=== PATIENT | female | born 1930 | race Caucasian/White ===

== ENCOUNTER 2018-02-05 08:28 | Inpatient (IN) ==
--- NOTE | 2018-02-05 08:38 | Emergency Department Note ---
Disposition Clinical Impression: Congestive heart failure Disposition: Admitted As Inpatient Condition: Good Referrals: Dilia Montoya MD [Primary Care Provider] - Forms: ED Satisfaction Letter Time of Disposition: 10:50 General Adult HPI - General Chief complaint: ED Shortness of Breath/Dyspnea Stated complaint: Sent from [facility]/back pain & dyspnea Time Seen by Provider: 02/05/18 08:33 Source: patient, family Mode of arrival: ambulatory Limitations: no limitations Nursing Notes Reviewed: Yes Vital Signs Reviewed: Yes - History of Present Illness HPI Narrative: Patient presents to the ED with the chief complaint of abdominal distention and back pain. Patient reportedly was sent over from Dr. Smith's office. She was seen in the ER here a few weeks ago and was told she had pleurisy and on a repeat visit. She had a CTA of her chest that showed a age indeterminate T10 fracture. Family states that since then she has been having epigastric pain and discomfort and bloating. States that her right periscapular area is very tender. - Related Data Home Medications Medication Instructions Recorded Confirmed Albuterol Sulfate [Proair Hfa] 2 puff IH Q4H 10/20/16 02/05/18 Atenolol [Tenormin] 25 mg PO DAILY 10/20/16 02/05/18 Cyanocobalamin (B-12) [Vitamin B12] 1,000 mcg IM QMONTH 10/20/16 02/05/18 Diltiazem HCl [Tiazac] 120 mg PO DAILY 10/20/16 02/05/18 Fluticasone/Salmeterol [Advair 1 puff IH Q12H 10/20/16 02/05/18 500-50 Diskus] HYDROcodone/Acet 5/325 mg [[place] 1 tab PO BID PRN 10/20/16 02/05/18 5-325 mg] Ipratropium [ATROVENT Inhaler] 2 puff IH QID 10/20/16 02/05/18 Levothyroxine [Synthroid] 125 mcg PO DAILY 10/20/16 02/05/18 Losartan/Hydrochlorothiazide 1 each PO DAILY 10/20/16 02/05/18 [Hyzaar 100-25 Tablet] predniSONE [PredniSONE] 5 mg PO DAILY 02/05/18 02/05/18 Allergies Allergy/AdvReac Type Severity Reaction Status Date / Time codeine Allergy Hives Verified 12/29/17 11:24 Review of Systems: As reviewed in the HPI. All other systems reviewed are negative or normal. Past Medical History - Past Medical History Medical history: Reports: asthma, hypertension, thyroid disease, other Surgical history: Reports: thyroidectomy Psychiatric history: Reports: no psych history LAP HAND TOOL history: Reports: no LAP HAND TOOL history - Social History Smoking Status: Never smoker Smokeless Tobacco Status: No Alcohol use: Reports: none Drug use: Reports: none Physical Exam - General Limitations: no limitations General appearance: alert, in no apparent distress - Head Head exam: atraumatic, normocephalic, normal inspection - Eye Eye exam: Present: normal appearance, PERRL, EOMI - ENT ENT exam: normal exam, normal oropharynx, mucous membranes moist - Chest Chest inspection: Present: normal inspection, symmetric chest wall rise - Respiratory Respiratory exam: Present: other (decreased breath sounds, ). Absent: normal lung sounds bilaterally - Cardiovascular Cardiovascular exam: Present: regular rate, normal rhythm, normal heart sounds - Abdominal Exam Abdominal exam: Present: soft, Non-Tender. Absent: tenderness, distention, guarding, rebound, rigidity - Extremities Exam Extremities exam: Present: normal inspection, full ROM. Absent: tenderness, pedal edema - Back Exam Back exam: Present: tenderness (mid thoracic, b/l radiating pain to abdomen). Absent: full ROM - Neurological Exam Neurological exam: Present: alert, oriented X3 - Psychiatric Psychiatric exam: Present: normal affect, normal mood - Skin Skin exam: Present: warm, dry, intact, normal color Course Course Narrative: Patient presenting with pleuritic chest pain for the last 2 months. Has had a CTA previously that was negative for PE. Also, incidentally found was at T10 superior endplate compression fracture which she saw spine surgery today but was having orthopnea and dyspnea that has been worsening and not improving. We will check labs, chest x-ray. Chest x-ray shows pulmonary vascular congestion and pleural effusions. We will add on a BNP and hepatic panel. BNP was only 150, although not acutely diagnostic for CHF. This combined with her dyspnea and chest x-ray findings to make us think this is more likely. We will admit the patient to hospitalist service for an echo and further workup. Of note, her pain was very well controlled with boluses of lidocaine patches, which could be from her thoracic fracture. - Consultations Consultation #1: Admitted to the hospitalist service under Dr. Sánchez. Agreeable that the patient does not sound infectious and would not antibiotics. We will give her some nitro paste help with her blood pressure and possible CHF. Be admitted for echo and further workup of this thoracic spine fracture. Time: 10:44 Vital Signs Temperature 97.7 F 02/05/18 08:31 Pulse Rate 68 02/05/18 08:31 Respiratory Rate 22 02/05/18 08:31 Blood Pressure 202/119 02/05/18 08:31 O2 Sat by Pulse Oximetry 96 02/05/18 08:31 Temperature 97.7 F 02/05/18 08:31 Pulse Rate 81 02/05/18 09:20 Respiratory Rate 20 02/05/18 09:20 Blood Pressure 183/111 02/05/18 09:20 O2 Sat by Pulse Oximetry 96 02/05/18 09:20 Oxygen Delivery Oxygen Delivery Room Air Medical Decision Making - Medical Records Medical records reviewed: Yes I reviewed the patient's medical records. - Lab Data Lab results reviewed: Yes I reviewed the patient's lab results. Result diagrams: 02/05/18 08:58 02/05/18 08:58 Lab Results 02/05/18 02/05/18 02/05/18 Range/Units 08:44 08:58 08:58 WBC 12.8 H (4.3-11.1) K/mcL RBC 4.05 (3.82-4.97) M/mcL Hgb 13.4 (11.5-15.4) g/dL Hct 39.8 (35.3-44.9) % MCV 98.3 (83.0-100.0) fL MCH 33.1 (28.0-33.3) pg MCHC 33.7 (31.6-35.5) g/dL RDW 13.0 (11.5-14.5) % Plt Count 392 (140-400) K/mcL MPV 9.2 L (9.4-12.4) fL Immature Gran % 2.7 (0-4) % Seg Neutrophils % 80.9 % Lymphocytes % 12.4 % Monocytes % 3.5 % Eosinophils % 0.0 % Basophils % 0.5 % Neutrophils # 10.4 H (1.6-8.9) K/mcL Lymphocytes # 1.6 (0.6-4.6) K/mcL Monocytes # 0.5 (0.0-1.3) K/mcL Eosinophils # 0.0 (0.0-0.6) K/mcL Basophils # 0.1 (0.0-0.2) K/mcL Immature Plt Fraction 2.0 (1.1-6.1) % Sodium 134 L (136-145) mEq/L Potassium 3.8 (3.5-5.1) mEq/L Chloride 98 (98-107) mEq/L Carbon Dioxide 27 (23-29) mEq/L BUN 25 H (8-23) mg/dL Creatinine 0.68 (0.60-1.20) mg/dL Est GFR ( Amer) > 60 (> 60) Est GFR (Non-Af Amer) > 60 (> 60) BUN/Creatinine Ratio 37 H (6-26) Glucose 210 H (70-105) mg/dL Calculated Osmolality 289 (280-300) Calcium 9.3 (8.6-10.3) mg/dL Total Bilirubin 0.6 (0.3-1.0) mg/dL Direct Bilirubin 0.2 (0.0-0.2) mg/dL Indirect Bilirubin 0.4 (0.0-1.2) mg/dL AST 23 (13-39) Units/L ALT 21 (7-52) Units/L Alkaline Phosphatase 60 (34-104) Units/L Troponin I < 0.03 (< 0.04) ng/mL B-Natriuretic Peptide (Less than 100) pg/mL Serum Total Protein 7.6 (6.4-8.9) g/dL Albumin 4.0 (3.5-5.7) g/dL Globulin 3.6 H (2.4-3.5) g/dL Albumin/Globulin Ratio 1.1 (1.1-2.2) Lipase 28 (11-82) Units/L Urine Color Yellow (Yellow) Urine Clarity Clear (Clear) Urine pH 7.0 (5.0-8.0) pH Units Ur Specific [place] 1.020 (1.010-1.025) Urine Protein Negative (Neg-Trace) mg/dL Urine Glucose (UA) 100 H (Normal) mg/dL Urine Ketones Negative (Negative) mg/dL Urine Blood Negative (Negative) Urine Nitrite Negative (Negative) Urine Bilirubin Negative (Negative) Urine Urobilinogen Normal (Normal) mg/dL Ur Leukocyte Esterase Large H (Negative) Urine Microscopic RBC 0-3 (0-3) per hpf Urine Microscopic WBC 5-15 H (0-3) per hpf Ur Squamous Epith Cells Many H (None-Few) per lpf Urine Bacteria None Seen (None-Few) per hpf Hyaline Casts None Seen (None-Few) per lpf Ur Culture Indicated? NO. A (NO) 02/05/18 Range/Units 08:58 WBC (4.3-11.1) K/mcL RBC (3.82-4.97) M/mcL Hgb (11.5-15.4) g/dL Hct (35.3-44.9) % MCV (83.0-100.0) fL MCH (28.0-33.3) pg MCHC (31.6-35.5) g/dL RDW (11.5-14.5) % Plt Count (140-400) K/mcL MPV (9.4-12.4) fL Immature Gran % (0-4) % Seg Neutrophils % % Lymphocytes % % Monocytes % % Eosinophils % % Basophils % % Neutrophils # (1.6-8.9) K/mcL Lymphocytes # (0.6-4.6) K/mcL Monocytes # (0.0-1.3) K/mcL Eosinophils # (0.0-0.6) K/mcL Basophils # (0.0-0.2) K/mcL Immature Plt Fraction (1.1-6.1) % Sodium (136-145) mEq/L Potassium (3.5-5.1) mEq/L Chloride (98-107) mEq/L Carbon Dioxide (23-29) mEq/L BUN (8-23) mg/dL Creatinine (0.60-1.20) mg/dL Est GFR ( Amer) (> 60) Est GFR (Non-Af Amer) (> 60) BUN/Creatinine Ratio (6-26) Glucose (70-105) mg/dL Calculated Osmolality (280-300) Calcium (8.6-10.3) mg/dL Total Bilirubin (0.3-1.0) mg/dL Direct Bilirubin (0.0-0.2) mg/dL Indirect Bilirubin (0.0-1.2) mg/dL AST (13-39) Units/L ALT (7-52) Units/L Alkaline Phosphatase (34-104) Units/L Troponin I (< 0.04) ng/mL B-Natriuretic Peptide 149 H (Less than 100) pg/mL Serum Total Protein (6.4-8.9) g/dL Albumin (3.5-5.7) g/dL Globulin (2.4-3.5) g/dL Albumin/Globulin Ratio (1.1-2.2) Lipase (11-82) Units/L Urine Color (Yellow) Urine Clarity (Clear) Urine pH (5.0-8.0) pH Units Ur Specific [place] (1.010-1.025) Urine Protein (Neg-Trace) mg/dL Urine Glucose (UA) (Normal) mg/dL Urine Ketones (Negative) mg/dL Urine Blood (Negative) Urine Nitrite (Negative) Urine Bilirubin (Negative) Urine Urobilinogen (Normal) mg/dL Ur Leukocyte Esterase (Negative) Urine Microscopic RBC (0-3) per hpf Urine Microscopic WBC (0-3) per hpf Ur Squamous Epith Cells (None-Few) per lpf Urine Bacteria (None-Few) per hpf Hyaline Casts (None-Few) per lpf Ur Culture Indicated? (NO) - Radiology Data Radiology results reviewed: Yes I reviewed the patient's radiology results. - EKG Data EKG #1 EKG attestation: Yes I reviewed and interpreted this EKG. EKG results narrative: Sinus rhythm, rate 74, KS interval 186, QRS 143, QTc 444, LEFT axis deviation, left bundle-branch block that is unchanged from previous
--- NOTE | 2018-02-05 08:52 | Emergency Department Note ---
Disposition Clinical Impression: Congestive heart failure Disposition: Admitted As Inpatient Condition: Good General Adult HPI - General Chief complaint: ED Shortness of Breath/Dyspnea Stated complaint: Sent from [facility]/back pain & dyspnea Time Seen by Provider: 02/05/18 08:33 Source: patient, family Mode of arrival: ambulatory Limitations: no limitations Nursing Notes Reviewed: Yes Vital Signs Reviewed: Yes - History of Present Illness Pain Scale: 4 - Related Data Home Medications Medication Instructions Recorded Confirmed Albuterol Sulfate [Proair Hfa] 2 puff IH Q4H 10/20/16 02/05/18 Atenolol [Tenormin] 25 mg PO DAILY 10/20/16 02/05/18 Cyanocobalamin (B-12) [Vitamin B12] 1,000 mcg IM QMONTH 10/20/16 02/05/18 Diltiazem HCl [Tiazac] 120 mg PO DAILY 10/20/16 02/05/18 Fluticasone/Salmeterol [Advair 1 puff IH Q12H 10/20/16 02/05/18 500-50 Diskus] HYDROcodone/Acet 5/325 mg [[place] 1 tab PO BID PRN 10/20/16 02/05/18 5-325 mg] Ipratropium [ATROVENT Inhaler] 2 puff IH QID 10/20/16 02/05/18 Levothyroxine [Synthroid] 125 mcg PO DAILY 10/20/16 02/05/18 Losartan/Hydrochlorothiazide 1 each PO DAILY 10/20/16 02/05/18 [Hyzaar 100-25 Tablet] predniSONE [PredniSONE] 5 mg PO DAILY 02/05/18 02/05/18 Allergies Allergy/AdvReac Type Severity Reaction Status Date / Time codeine Allergy Hives Verified 12/29/17 11:24 Past Medical History - Past Medical History Medical history: Reports: asthma, hypertension, thyroid disease, other Surgical history: Reports: thyroidectomy Psychiatric history: Reports: no psych history SKIN CARVER history: Reports: no SKIN CARVER history - Social History Smoking Status: Never smoker Smokeless Tobacco Status: No Alcohol use: Reports: none Drug use: Reports: none Physical Exam - General Limitations: no limitations General appearance: alert, in no apparent distress Course Vital Signs Temperature 97.7 F 02/05/18 08:31 Pulse Rate 68 02/05/18 08:31 Respiratory Rate 22 02/05/18 08:31 Blood Pressure 202/119 02/05/18 08:31 O2 Sat by Pulse Oximetry 96 02/05/18 08:31 Temperature 97.7 F 02/05/18 08:31 Pulse Rate 77 02/05/18 11:17 Respiratory Rate 16 02/05/18 11:17 Blood Pressure 160/88 02/05/18 11:17 O2 Sat by Pulse Oximetry 98 02/05/18 11:17 Oxygen Delivery Oxygen Delivery Room Air Medical Decision Making - MDM Narrative Medical decision making narrative: This documentation is done with the assistance of Dragon dictation. Despite efforts made to ensure accuracy, there may be inaccuracies in medical transcription supervisor or spelling and typographical errors. Patient presents from orthopedics office due to T10 compression fracture. That was found during her last ER visit. She is having some swelling in her abdomen and some pain. Were in and do a cardiac workup on her and a reevaluation. She is not have any dyspnea at this time. Daughter states she is pretty healthy and does not come to the hospital very often. Patient's agreement with our plan. Chest X-Ray 02/05/18 08:52 IMPRESSION: 1. Pulmonary vascular congestion and mild cardiomegaly. 2. Questionable bilateral effusions. 3. Bibasilar airspace opacities potentially representing atelectasis, pneumonia, or aspiration. D/ / Marin Vides MD / Marin Vides MD Interpreting Provider: Marin Vides MD 1000 hrs.: Patient started on medication herefor CHF, bring her into the hospital for CHF. Spoke with hospitalist in agreement with plan. Patient's feeling better and is agreement with this admission. Chest X-Ray 02/05/18 08:52 IMPRESSION: 1. Pulmonary vascular congestion and mild cardiomegaly. 2. Questionable bilateral effusions. 3. Bibasilar airspace opacities potentially representing atelectasis, pneumonia, or aspiration. D/ / Marin Vides MD / Marin Vides MD Interpreting Provider: Marin Vides MD - Lab Data Result diagrams: 02/05/18 08:58 02/05/18 08:58 Lab Results 02/05/18 02/05/18 02/05/18 Range/Units 08:44 08:58 08:58 WBC 12.8 H (4.3-11.1) K/mcL RBC 4.05 (3.82-4.97) M/mcL Hgb 13.4 (11.5-15.4) g/dL Hct 39.8 (35.3-44.9) % MCV 98.3 (83.0-100.0) fL MCH 33.1 (28.0-33.3) pg MCHC 33.7 (31.6-35.5) g/dL RDW 13.0 (11.5-14.5) % Plt Count 392 (140-400) K/mcL MPV 9.2 L (9.4-12.4) fL Immature Gran % 2.7 (0-4) % Seg Neutrophils % 80.9 % Lymphocytes % 12.4 % Monocytes % 3.5 % Eosinophils % 0.0 % Basophils % 0.5 % Neutrophils # 10.4 H (1.6-8.9) K/mcL Lymphocytes # 1.6 (0.6-4.6) K/mcL Monocytes # 0.5 (0.0-1.3) K/mcL Eosinophils # 0.0 (0.0-0.6) K/mcL Basophils # 0.1 (0.0-0.2) K/mcL Immature Plt Fraction 2.0 (1.1-6.1) % Sodium 134 L (136-145) mEq/L Potassium 3.8 (3.5-5.1) mEq/L Chloride 98 (98-107) mEq/L Carbon Dioxide 27 (23-29) mEq/L BUN 25 H (8-23) mg/dL Creatinine 0.68 (0.60-1.20) mg/dL Est GFR ( Amer) > 60 (> 60) Est GFR (Non-Af Amer) > 60 (> 60) BUN/Creatinine Ratio 37 H (6-26) Glucose 210 H (70-105) mg/dL Calculated Osmolality 289 (280-300) Calcium 9.3 (8.6-10.3) mg/dL Total Bilirubin 0.6 (0.3-1.0) mg/dL Direct Bilirubin 0.2 (0.0-0.2) mg/dL Indirect Bilirubin 0.4 (0.0-1.2) mg/dL AST 23 (13-39) Units/L ALT 21 (7-52) Units/L Alkaline Phosphatase 60 (34-104) Units/L Troponin I < 0.03 (< 0.04) ng/mL B-Natriuretic Peptide (Less than 100) pg/mL Serum Total Protein 7.6 (6.4-8.9) g/dL Albumin 4.0 (3.5-5.7) g/dL Globulin 3.6 H (2.4-3.5) g/dL Albumin/Globulin Ratio 1.1 (1.1-2.2) Lipase 28 (11-82) Units/L Urine Color Yellow (Yellow) Urine Clarity Clear (Clear) Urine pH 7.0 (5.0-8.0) pH Units Ur Specific [place] 1.020 (1.010-1.025) Urine Protein Negative (Neg-Trace) mg/dL Urine Glucose (UA) 100 H (Normal) mg/dL Urine Ketones Negative (Negative) mg/dL Urine Blood Negative (Negative) Urine Nitrite Negative (Negative) Urine Bilirubin Negative (Negative) Urine Urobilinogen Normal (Normal) mg/dL Ur Leukocyte Esterase Large H (Negative) Urine Microscopic RBC 0-3 (0-3) per hpf Urine Microscopic WBC 5-15 H (0-3) per hpf Ur Squamous Epith Cells Many H (None-Few) per lpf Urine Bacteria None Seen (None-Few) per hpf Hyaline Casts None Seen (None-Few) per lpf Ur Culture Indicated? NO. A (NO) 02/05/18 Range/Units 08:58 WBC (4.3-11.1) K/mcL RBC (3.82-4.97) M/mcL Hgb (11.5-15.4) g/dL Hct (35.3-44.9) % MCV (83.0-100.0) fL MCH (28.0-33.3) pg MCHC (31.6-35.5) g/dL RDW (11.5-14.5) % Plt Count (140-400) K/mcL MPV (9.4-12.4) fL Immature Gran % (0-4) % Seg Neutrophils % % Lymphocytes % % Monocytes % % Eosinophils % % Basophils % % Neutrophils # (1.6-8.9) K/mcL Lymphocytes # (0.6-4.6) K/mcL Monocytes # (0.0-1.3) K/mcL Eosinophils # (0.0-0.6) K/mcL Basophils # (0.0-0.2) K/mcL Immature Plt Fraction (1.1-6.1) % Sodium (136-145) mEq/L Potassium (3.5-5.1) mEq/L Chloride (98-107) mEq/L Carbon Dioxide (23-29) mEq/L BUN (8-23) mg/dL Creatinine (0.60-1.20) mg/dL Est GFR ( Amer) (> 60) Est GFR (Non-Af Amer) (> 60) BUN/Creatinine Ratio (6-26) Glucose (70-105) mg/dL Calculated Osmolality (280-300) Calcium (8.6-10.3) mg/dL Total Bilirubin (0.3-1.0) mg/dL Direct Bilirubin (0.0-0.2) mg/dL Indirect Bilirubin (0.0-1.2) mg/dL AST (13-39) Units/L ALT (7-52) Units/L Alkaline Phosphatase (34-104) Units/L Troponin I (< 0.04) ng/mL B-Natriuretic Peptide 149 H (Less than 100) pg/mL Serum Total Protein (6.4-8.9) g/dL Albumin (3.5-5.7) g/dL Globulin (2.4-3.5) g/dL Albumin/Globulin Ratio (1.1-2.2) Lipase (11-82) Units/L Urine Color (Yellow) Urine Clarity (Clear) Urine pH (5.0-8.0) pH Units Ur Specific [place] (1.010-1.025) Urine Protein (Neg-Trace) mg/dL Urine Glucose (UA) (Normal) mg/dL Urine Ketones (Negative) mg/dL Urine Blood (Negative) Urine Nitrite (Negative) Urine Bilirubin (Negative) Urine Urobilinogen (Normal) mg/dL Ur Leukocyte Esterase (Negative) Urine Microscopic RBC (0-3) per hpf Urine Microscopic WBC (0-3) per hpf Ur Squamous Epith Cells (None-Few) per lpf Urine Bacteria (None-Few) per hpf Hyaline Casts (None-Few) per lpf Ur Culture Indicated? (NO) Attestation Statement - Attestation Attestation: I examined this patient and my medical decision-making was reviewed with the Resident Physician. I agree with the documented findings, disposition and treatment plan as described except to the extent set forth below. Patient seen on arrival with Dr. Delgado and myself, I agree with his evaluation and management plan, supervise care the patient's stay.
[2018-02-05 09:07] LABS: Bilirubin,Urine Negative (Negative); Blood,Urine Negative (Negative); Color,Urine Yellow (Yellow); Glucose,Urine (UA) 100 mg/dL (Normal); Ketones,Urine Negative (Negative); Leukocyte Esterase,Urine Large (Negative); Nitrite,Urine Negative (Negative); Protein,Urine Negative (Neg-Trace); Urobilinogen,Urine Normal (Normal)
[2018-02-05 09:09] LABS: Bacteria,Urine None Seen per hpf (None-Few); Hyaline Casts,Urine None Seen per lpf (None-Few); Squamous Epithelial Cell,Urine Many per lpf (None-Few)
[2018-02-05 09:10] LABS: Clarity,Urine Clear (Clear)
[2018-02-05 09:14] LABS: Basophils # 0.1 K/mcL (0.0-0.2); Basophils % 0.5 %; Hematocrit 39.8 % (35.3-44.9); Immature Granulocytes % 2.7 % (0-4); Lymphocytes # 1.6 K/mcL (0.6-4.6); Lymphocytes % 12.4 %; Mean Corpuscular HGB Conc 33.7 g/dL (31.6-35.5); Mean Corpuscular Hemoglobin 33.1 pg (28.0-33.3); Mean Platelet Volume 9.2 fL (9.4-12.4); Monocytes # 0.5 K/mcL (0.0-1.3); Monocytes % 3.5 %; Neutrophils # 10.4 K/mcL (1.6-8.9); Platelet Count 392 K/mcL (140-400); Red Blood Count 4.05 M/mcL (3.82-4.97); Segmented Neutrophils % 80.9 %
[2018-02-05 09:17] LABS: Hemoglobin 13.4 g/dL (11.5-15.4); Mean Corpuscular Volume 98.3 fL (83.0-100.0)
[2018-02-05 09:20] LABS: RBC,Urine 0-3 per hpf (0-3)
[2018-02-05 09:32] LABS: Troponin I < 0.03 ng/mL (< 0.04)
[2018-02-05 09:33] LABS: BUN/Creatinine Ratio 37 (6-26); Blood Urea Nitrogen 25 mg/dL (8-23); Calcium 9.3 mg/dL (8.6-10.3); Carbon Dioxide 27 mEq/L (23-29); Chloride 98 mEq/L (98-107); Glucose 210 mg/dL (70-105); Osmolality,Calculated 289 (280-300); Potassium 3.8 mEq/L (3.5-5.1); Sodium 134 mEq/L (136-145); eGFR For African Americans > 60 (> 60); eGFR For Non-African Americans > 60 (> 60)
[2018-02-05 10:02] LABS: Alanine Aminotransferase 21 Units/L (7-52); Albumin/Globulin Ratio 1.1 (1.1-2.2); Alkaline Phosphatase 60 Units/L (34-104); Aspartate Amino Transferase 23 Units/L (13-39); Bilirubin,Direct 0.2 mg/dL (0.0-0.2); Bilirubin,Indirect 0.4 mg/dL (0.0-1.2); Bilirubin,Total 0.6 mg/dL (0.3-1.0); Globulin 3.6 g/dL (2.4-3.5); Lipase 28 Units/L (11-82); Total Protein 7.6 g/dL (6.4-8.9)
[2018-02-05] MEDS ORDERED: Nitroglycerin 1 INCH/GM PACKET TP ONE (10:43)
[2018-02-05] MEDS ORDERED: Naloxone 0.4 MG/ML INJ IVP PRN (12:18)
--- NOTE | 2018-02-05 12:18 | Internal Med History&Physical ---
Date of Encounter: 02/05/18 Time of Encounter: 12:18 Internal Medicine - H&P: HPI Admitted From: Home Plans for Post Hospital Care: Home History of present illness: Ms. Church is a 87 year old female with history of hypertension, polymyalgia rheumatica, TIA questionable DVT, recently diagnosed T10 fracture 3 weeks ago on x-ray was sent over from Dr. Smith's office with a complaint of shortness of breath raise blood pressure. Patient went to Dr. Smith office today for the evaluation of a spine fracture but was found to be in severe pain that was causing short of breath and high blood pressure was found therefore sent to emergency room. Patient has middle back pain rating 10 x 10 worse on bending and lying down but no relieving factor for last 2 weeks and residual ER where CT chest done with finding of T10 fracture therefore send patient back to home with a follow-up PCP in a spine surgeon and therefore she supposed to see a spine surgeon today. She has been taking hydrocodone on 5 mg but not much help. She thinks her shortness of breath is because of ongoing middle back pain that radiates to the upper abdomen bilateral causing bandlike presentation otherwise denies chest pain, nausea, vomiting, fever, diarrhea, constipation. Patient noticed some urine frequency change and chills. Patient denies urinary or bowel incontinence, lower extremity weakness but has chronic tingling and numbness and neuropathic pain. She was seen in the ER here a few weeks ago and was told she had pleurisy and on a repeat visit. She had a CTA of her chest that showed a age indeterminate T10 fracture. Past Med Surg Social Fam HX - Past Medical History Medical history: asthma, hypertension, thyroid disease, other Psychiatric history: no psych history - Past Surgical History Surgical History: thyroidectomy - Social History Smoking Status: Never smoker Smokeless Tobacco Status: No Alcohol use: none Drug use: none Internal Medicine - H&P: Meds Albuterol Sulfate [Proair Hfa] 2 puff IH Q4H 10/20/16 [History] Atenolol [Tenormin] 25 mg PO DAILY 10/20/16 [History] Cyanocobalamin (B-12) [Vitamin B12] 1,000 mcg IM QMONTH 10/20/16 [History] Diltiazem HCl [Tiazac] 120 mg PO DAILY 10/20/16 [History] Fluticasone/Salmeterol [Advair 500-50 Diskus] 1 puff IH Q12H 10/20/16 [History] HYDROcodone/Acet 5/325 mg [[place] 5-325 mg] 1 tab PO BID PRN 10/20/16 [History] Ipratropium [ATROVENT Inhaler] 2 puff IH QID 10/20/16 [History] Levothyroxine [Synthroid] 125 mcg PO DAILY 10/20/16 [History] Losartan/Hydrochlorothiazide [Hyzaar 100-25 Tablet] 1 each PO DAILY 10/20/16 [ History] predniSONE [PredniSONE] 5 mg PO DAILY 02/05/18 [History] 3 Allergy/AdvReac Type Severity Reaction Status Date / Time codeine Allergy Hives Verified 12/29/17 11:24 All Systems PM: A 10-system review of systems was performed and is negative for pertinent findings except as documented above in the HPI. - Constitutional Vitals: Temp Pulse Resp BP Pulse Ox 97.7 F 77 18 177/84 98 02/05/18 08:31 02/05/18 11:17 02/05/18 12:11 02/05/18 12:11 02/05/18 11:17 Exam: General appearance: Moderate distress due to pain, A&O X 3. Daughter at bedside. No respiratory distress Head exam: Atraumatic Eye exam: EOMI, PERRLA ENT exam: Moist oral mucosa Neck nontender, supple Respiratory exam: Clear to auscultation bilaterally Cardiovascular exam: Regular rate and rhythm, no systolic murmur Abdominal exam: Soft, bilateral upper abdominal tenderness in bandlike fashion that originate from T10-T12 area. nondistended, positive bowel sounds Spine-limited range of motion due to severe pain. Tender T10-T12. Extremities exam: No calf tenderness, no pedal edema Present: Skin-no rash, warm, dry, intact Neurological exam: Alert, awake, oriented 3, CN II-XII intact, no focal deficits. No facial droop. Normal speech. Normal gait. Romberg sign negative Internal Med - H&P Results - Labs CBC & Chem 7: 02/05/18 08:58 02/05/18 08:58 - Assessment and plan (1) Back pain of thoracolumbar region Current Visit: Yes Status: Acute Assessment and plan: Acute on chronic. No history of fall. CT thorax with T10 fracture. No associated neurological finding. Pain management with hydrocodone 10 mg every 6 hour when necessary, lidocaine patch. Decadron 10 mg loading dose with 4 mg every 8 hours to relieve inflammatory process and patient also has been on chronic steroid due to polymyalgia rheumatica. Therefore she has [place] shoulder pain. MRI thoracic lumbar spine without contrast ordered. Will consult Dr. Smith. Fall precaution. (2) Shortness of breath Current Visit: Yes Status: Acute Assessment and plan: Most related with severe pain. Slight raise in BNP and also chest x-ray venous congestion, questionable bilateral pleural effusion mild, questionable atelectasis. Lasix 20 mg IV 1, a strict I&O's, spirometry started. On not convinced about infiltrate but will keep on monitoring. D-dimer order. Continue DuoNeb his home dose. Chest clearand of COPD exacerbation. Oxygen when necessary. (3) Leukocytosis, unspecified Current Visit: Yes Status: Acute Assessment and plan: Slight urinary symptom with abnormal urinalysis. Urine culture ordered. Patient does not want appearance upset therefore no blood culture ordered. Empiric Rocephin treatment is started while waiting for urine culture report. Qualifiers: Leukocytosis type: unspecified Qualified Code(s): D72.829 - Elevated white blood cell count, unspecified (4) Hyperglycemia Current Visit: Yes Status: Acute Assessment and plan: No history of diabetes mellitus but patient has been on chronic steroid and also in a stress. Accu-Chek, sliding scale insulin, hemoglobin A1c., Diabetic diet. (5) DVT prophylaxis Current Visit: Yes Status: Acute Assessment and plan: SCDs, Lovenox. - Time Spent With Patient Total time spent is greater than 50% in coordination of care (as documented) at patient's floor/unit and/or counseling patient:
[2018-02-05] MEDS ORDERED: *HR* Dextrose 50 % in Water (Syg) 50 ML SYRINGE IVP PRN (12:24)
[2018-02-05] MEDS ORDERED: Dextrose Gel 15 GM/37.5 ML TUBE PO PRN ×2 (12:24)
[2018-02-05] MEDS ORDERED: D5% in Water 1,000 ML IVC PRN (12:24)
[2018-02-05] MEDS ORDERED: Dexamethasone 4 MG/ML VIAL IVP ONE (12:50)
[2018-02-05] MEDS ORDERED: Furosemide 20 MG/2 ML VIAL IVP ONE (13:02)
[2018-02-05] MEDS: *HR* HYDROcodone/Acet 10/325 mg TABLET PO PRN ×2 (13:27→21:25)
[2018-02-05 14:10] LABS: Estimated Average Glucose 163 mg/dl; Hemoglobin A1C 7.3 %
[2018-02-05] MEDS: Dexamethasone 4 MG/ML VIAL IVP SCH ×2 (14:38→21:26)
[2018-02-05] MEDS: Budesonide/Formoterol 160/4.5 MDI IH SCH ×2 (15:49→20:15)
[2018-02-05] MEDS: Ipratropium 1 PUFF INHALER IH SCH ×3 (15:55→20:15)
[2018-02-05] MEDS: Ibuprofen 800 MG TABLET PO PRN (16:12)
[2018-02-05] MEDS ORDERED: *HR* FentaNYL (PF) 100 MCG/2 ML VIAL IVP ONE (16:24)
--- NOTE | 2018-02-05 17:11 | Electrocardiograph Report ---
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
[2018-02-05] MEDS ORDERED: Insulin LISPRO 300 UNITS/3 ML VIAL SQ SCH (18:00)
[2018-02-05] MEDS: Insulin LISPRO 300 UNITS/3 ML VIAL SQ SCH ×2 (18:40→21:26)
[2018-02-05] MEDS: Gabapentin 100 MG CAPSULE PO SCH (21:25)
[2018-02-06] MEDS: *HR* HYDROcodone/Acet 10/325 mg TABLET PO PRN ×3 (00:58→15:12)
[2018-02-06 01:06] LABS: Basophils % 0.3 %; Hematocrit 38.6 % (35.3-44.9); Hemoglobin 13.2 g/dL (11.5-15.4); Immature Granulocytes % 2.8 % (0-4); Lymphocytes # 1.8 K/mcL (0.6-4.6); Lymphocytes % 12.4 %; Mean Corpuscular HGB Conc 34.2 g/dL (31.6-35.5); Mean Corpuscular Hemoglobin 32.7 pg (28.0-33.3); Mean Corpuscular Volume 95.5 fL (83.0-100.0); Mean Platelet Volume 9.4 fL (9.4-12.4); Monocytes # 0.4 K/mcL (0.0-1.3); Neutrophils # 11.6 K/mcL (1.6-8.9); Platelet Count 358 K/mcL (140-400); Red Blood Count 4.04 M/mcL (3.82-4.97); Red Cell Distribution Width 13.2 % (11.5-14.5); Segmented Neutrophils % 81.5 %
[2018-02-06 01:25] LABS: BUN/Creatinine Ratio 37 (6-26); Blood Urea Nitrogen 26 mg/dL (8-23); Calcium 9.4 mg/dL (8.6-10.3); Carbon Dioxide 26 mEq/L (23-29); Chloride 98 mEq/L (98-107); Chol/HDL Ratio 3.5 (0-4.9); Cholesterol 211 mg/dL (< 200); Glucose 227 mg/dL (70-105); HDL Cholesterol 61 mg/dL (40-59); LDL Cholesterol,Calculated 125 mg/dL (0-99); Osmolality,Calculated 288 (280-300); Potassium 3.5 mEq/L (3.5-5.1); Sodium 133 mEq/L (136-145); Triglycerides 124 mg/dL (< 150); eGFR For African Americans > 60 (> 60); eGFR For Non-African Americans > 60 (> 60)
[2018-02-06] MEDS: Ibuprofen 800 MG TABLET PO PRN (04:42)
[2018-02-06] MEDS: Dexamethasone 4 MG/ML VIAL IVP SCH ×3 (06:32→20:22)
[2018-02-06] MEDS: *HR* Enoxaparin 40 MG/0.4 ML SYRINGE SQ SCH (06:32)
[2018-02-06] MEDS: Diltiazem CD (24hr) 120 MG CAPSULE PO SCH (08:28)
[2018-02-06] MEDS: Gabapentin 100 MG CAPSULE PO SCH ×3 (08:28→20:22)
[2018-02-06] MEDS: Losartan/HCTZ 50-12.5 TABLET PO SCH (08:28)
[2018-02-06] MEDS: cefTRIAXone 1,000 MG in Water for inj. (sterile) 20 ML 10 ML IVP SCH (08:31)
[2018-02-06] MEDS: Insulin LISPRO 300 UNITS/3 ML VIAL SQ SCH ×4 (08:32→20:28)
--- NOTE | 2018-02-06 10:35 | Internal Med Progress Note ---
Date of Encounter: 02/06/18 Time of Encounter: 10:33 - Assessment and plan (1) Back pain of thoracolumbar region Current Visit: Yes Status: Acute Assessment and plan: Acute on chronic. No history of fall. CT thorax with T10 fracture. No associated neurological finding. Pain management with hydrocodone 10 mg every 6 hour when necessary, lidocaine patch. Decadron 10 mg loading dose with 4 mg every 8 hours to relieve inflammatory process and patient also has been on chronic steroid due to polymyalgia rheumatica. We will also give muscle relaxer -Zanaflex as needed for muscle spasms . MRI of thoracic spine and lumbar did reveal acute on chronic appearing compression fracture of T9 acute to subacute inferior endplate fracture of T8 Dr. Smith has been consulted appreciate recommendations. (2) Shortness of breath Current Visit: Yes Status: Acute Assessment and plan: This could be multi factoral Suspect this is related to severe pain patient is requiring supplemental oxygen. SPO2 room air 91-93%. X-ray did show venous congestion is given IV Lasix 1. Continue to monitor intake daily weights. D-dimer was elevated at 986, we will obtain a CTA to rule out possible PE. Patient has been expressing shortness of breath for the past 2 weeks and has been experiencing decreased mobility due to spine fractures. Suspicious for PE She does not appear to be in COPD exacerbation or stent wheezing at this time. We will continue with DuoNeb's as needed. Continue with oxygen titrated maintain SPO2 greater than 92% (3) Leukocytosis, unspecified Current Visit: Yes Status: Acute Assessment and plan: Patient is on chronic steroids -some slight urinary symptoms Swith abnormal urinalysis. Urine culture ordered. Empiric Rocephin treatment is started pending urine culture report. Qualifiers: Leukocytosis type: unspecified Qualified Code(s): D72.829 - Elevated white blood cell count, unspecified (4) Hyperglycemia Current Visit: Yes Status: Acute Assessment and plan: A1c 7.3 No history of diabetes mellitus she has been receiving chronic steroids Accu-Chek, before meals at bedtime with sliding scale insulin, Diabetic diet. (5) DVT prophylaxis Current Visit: Yes Status: Acute Assessment and plan: SCDs, Lovenox. - Time Spent With Patient Total time spent is greater than 50% in coordination of care (as documented) at patient's floor/unit and/or counseling patient: - Subjective Interval history: Patient is new to me, I did review medical records. Patient states she feels better. Back pain has improved, awaiting recommendations of PT/OT and Dr. Smith . Cont to complain of SOB SPO2 is 9193% on room air requiring supplemental oxygen - Constitutional Vitals: Temp Pulse Resp BP Pulse Ox 98.0 F 90 16 148/78 96 02/06/18 08:11 02/06/18 08:11 02/06/18 08:11 02/06/18 08:11 02/06/18 09:29 General appearance: Present: A&O X 3, obese - Head Head exam: Present: atraumatic, normocephalic - Eye Eye exam: Present: PERRL, conjuntiva pink, sclera anicteric Pupils: Present: PERRL - Neck Neck exam general surgery: Present: supple, trachea midline. Absent: lymphadenopathy - Respiratory Respiratory exam: Present: CTAB. Absent: accessory muscle use, rales, rhonchi, wheezes - Cardiovascular Cardiovascular exam: Present: RRR, +S1, +S2. Absent: diastolic murmur, gallop, rubs, systolic murmur - GI/Abdominal GI/Abdominal exam: Present: normal bowel sounds, soft, no peritoneal signs. Absent: distended, tenderness - Extremities Exam Extremities exam: Present: warm, radial pulses palpable and symmetrical. Absent : calf tenderness, cyanotic, pedal edema - Neurological Exam Neurological exam: Present: CN II-XII intact, oriented X3, no focal deficits. Absent: pronater drift, facial droop, speech deficit - Skin Skin exam: Present: dry, intact Internal Medicine: Result - Labs CBC & Chem 7: 02/06/18 00:42 02/06/18 00:42 - ABG Interpretation ABG results: PT/INR, D-dimer D-Dimer 986 ng/mLFEU (0-500) H 02/05/18 12:48 - VTE Documentation of Mechanical Device: Graduated compression elastic hosiery Consult Discharge Plan - Plan Referrals: Dilia Montoya MD [Primary Care Provider] -
[2018-02-06] MEDS: Ipratropium 1 PUFF INHALER IH SCH ×4 (10:38→19:33)
[2018-02-06] MEDS: Budesonide/Formoterol 160/4.5 MDI IH SCH ×2 (10:38→19:33)
[2018-02-06] MEDS ORDERED: tiZANidine 4 MG TABLET PO PRN (15:15)
[2018-02-06] MEDS ORDERED: Isovue-370 500 ML INFUS..BTL IV ONE (15:46)
[2018-02-06] MEDS ORDERED: *HR* FentaNYL (PF) 100 MCG/2 ML VIAL IVP ONE (15:48)
--- NOTE | 2018-02-06 15:52 | Spine Progress Note ---
Date of Encounter: 02/06/18 Time of Encounter: 15:50 - Assessment and Plan (1) Compression fracture of thoracic vertebra Current Visit: Yes Status: Acute On exam she had complaints of severe back pain in the thoracic or lumbar region. Afebrile vital signs stable. She is tender to palpation in the thoracic or lumbar region. She is grossly neurovascularly intact with regard to her bilateral lower extremities. She has no clonus. Her hips move symmetrically. MRI of the thoracic spine reveals acute compression fractures at T8 and T9 with loss of height but no significant retropulsion of fragments. Impression: 1) acute thoracic compression fractures T8 and T9 2) osteopenia Plan: Due to her significant pain and disability after it reasonable to consider surgery in the form of a kyphoplasty T8 and T9. Risk benefits possible complications and alternatives were discussed with the patient and she would like to proceed. The patient understands that she must have medical optimization and clearance measures outlined in approved by the hospitalist service prior to surgical intervention which we will plan for February 07. She will be nothing by mouth after minute midnight in anticipation of the procedure. Qualifiers: Encounter type: initial encounter Fracture type: closed Qualified Code(s) : S22.000A - Wedge compression fracture of unspecified thoracic vertebra, initial encounter for closed fracture (2) Osteopenia Current Visit: Yes Status: Acute Qualifiers: Osteopenia location: unspecified Qualified Code(s): M85.80 - Other specified disorders of bone density and structure, unspecified site Subjective Principal diagnosis: Severe back pain, shortness of breath Interval history: Miss Church is an 87-year-old woman who came to the office with severe back pain and dyspnea on exertion with shortness of breath. She rated her pain a 9 on a pain scale despite analgesics. As part of her pulmonary workup she had a CT scan of the chest which revealed a thoracic compression fracture. Due to her worsening dyspnea, she was sent to the emergency department for evaluation. She was admitted for definitive management of her pulmonary symptoms as well as fracture. She had an MRI on admission which revealed compression fractures at T8 and T9. She denies any bowel bladder symptoms otalgia, radicular symptoms of the lower extremities fevers or chills. Objective Vital signs: Vital Signs Temp Pulse Resp BP Pulse Ox 02/06/18 15:44 93 02/06/18 11:41 98.3 F 77 16 138/86 97 02/06/18 10:41 16 97 02/06/18 09:29 96 Intake and Output 02/05/18 02/06/18 02/06/18 23:59 07:59 15:59 Intake Total 240 / 240 Balance 240 / 240 Intake: Oral 240 / 240 Other: Meal Lunch Percent of Meal Consumed 100% Blood Glucose* 152 - Labs CBC & BMP: 02/06/18 00:42 02/06/18 00:42 Labs: Abnormal lab results WBC 14.2 K/mcL (4.3-11.1) H 02/06/18 00:42 Neutrophils # 11.6 K/mcL (1.6-8.9) H 02/06/18 00:42 D-Dimer 986 ng/mLFEU (0-500) H 02/05/18 12:48 Sodium 133 mEq/L (136-145) L 02/06/18 00:42 BUN 26 mg/dL (8-23) H 02/06/18 00:42 BUN/Creatinine Ratio 37 (6-26) H 02/06/18 00:42 Glucose 227 mg/dL (70-105) H 02/06/18 00:42 POC Glucose 188 mg/dL (70-99) H 02/05/18 12:53 Hemoglobin A1c 7.3 % (-5.6) H 02/05/18 12:48 B-Natriuretic Peptide 149 pg/mL (Less than 100) H 02/05/18 08:58 Globulin 3.6 g/dL (2.4-3.5) H 02/05/18 08:58 Cholesterol 211 mg/dL (< 200) H 02/06/18 00:42 LDL Cholesterol, Calc 125 mg/dL (0-99) H 02/06/18 00:42 HDL Cholesterol 61 mg/dL (40-59) H 02/06/18 00:42 Urine Glucose (UA) 100 mg/dL (Normal) H 02/05/18 08:44 Ur Leukocyte Esterase Large (Negative) H 02/05/18 08:44 Urine Microscopic WBC 5-15 per hpf (0-3) H 02/05/18 08:44 Ur Squamous Epith Cells Many per lpf (None-Few) H 02/05/18 08:44 Ur Culture Indicated? NO. (NO) A 02/05/18 08:44 Consult Discharge Plan - Plan Referrals: Dilia Montoya MD [Primary Care Provider] -
[2018-02-07] MEDS: *HR* Enoxaparin 40 MG/0.4 ML SYRINGE SQ SCH (04:58)
[2018-02-07] MEDS: Dexamethasone 4 MG/ML VIAL IVP SCH ×3 (05:28→20:39)
[2018-02-07 05:36] LABS: Basophils % 0.3 %; Hematocrit 37.4 % (35.3-44.9); Hemoglobin 12.4 g/dL (11.5-15.4); Immature Granulocytes % 2.5 % (0-4); Lymphocytes # 1.5 K/mcL (0.6-4.6); Lymphocytes % 9.6 %; Mean Corpuscular HGB Conc 33.2 g/dL (31.6-35.5); Mean Corpuscular Hemoglobin 33.1 pg (28.0-33.3); Mean Corpuscular Volume 99.7 fL (83.0-100.0); Mean Platelet Volume 9.7 fL (9.4-12.4); Monocytes # 1.1 K/mcL (0.0-1.3); Monocytes % 6.9 %; Neutrophils # 12.5 K/mcL (1.6-8.9); Platelet Count 327 K/mcL (140-400); Red Blood Count 3.75 M/mcL (3.82-4.97); Red Cell Distribution Width 13.3 % (11.5-14.5); Segmented Neutrophils % 80.7 %
[2018-02-07 05:38] LABS: INR 1.1; Prothrombin Time 11.4 Seconds (9.4-12.1)
[2018-02-07 05:41] LABS: Activated Partial Thrombo Time 23.6 Seconds (26.0-36.0)
[2018-02-07 05:52] LABS: BUN/Creatinine Ratio 56 (6-26); Blood Urea Nitrogen 31 mg/dL (8-23); Calcium 9.3 mg/dL (8.6-10.3); Carbon Dioxide 30 mEq/L (23-29); Chloride 101 mEq/L (98-107); Glucose 236 mg/dL (70-105); Osmolality,Calculated 298 (280-300); Potassium 3.7 mEq/L (3.5-5.1); Sodium 137 mEq/L (136-145); eGFR For African Americans > 60 (> 60); eGFR For Non-African Americans > 60 (> 60)
[2018-02-07] MEDS: Budesonide/Formoterol 160/4.5 MDI IH SCH ×2 (07:22→21:29)
[2018-02-07] MEDS: Ipratropium 1 PUFF INHALER IH SCH ×4 (07:22→21:29)
[2018-02-07] MEDS ORDERED: ceFAZolin 1,000 MG in Water for inj. (sterile) 20 ML 10 ML IVP ONE (07:28)
--- NOTE | 2018-02-07 08:38 | Internal Med Progress Note ---
Date of Encounter: 02/07/18 Time of Encounter: 08:36 - Assessment and plan (1) Back pain of thoracolumbar region Current Visit: Yes Status: Acute Assessment and plan: MRI of thoracic spine and lumbar did reveal acute on chronic appearing compression fracture of T9 acute to subacute inferior endplate fracture of T8 Dr. Smith has been consulted patient has been nothing by mouth after midnight for pending kyphoplasty. She will need to be assessed by cardiology prior to surgery for clearance Continue with present pain medications (2) Shortness of breath Current Visit: Yes Status: Acute Assessment and plan: Suspect this is related to severe pain she is requiring supplemental oxygen SPO2 on room air is 9193%. X-ray did show venous congestion and she was given IV Lasix x1 CTA was completed to rule out PE which was negative we will continue with bronchodilators and oxygen as needed (3) Leukocytosis, unspecified Current Visit: Yes Status: Acute Assessment and plan: 1 patient is on chronic steroids which may be contributing-urinalysis culture showed no growth Qualifiers: Leukocytosis type: unspecified Qualified Code(s): D72.829 - Elevated white blood cell count, unspecified (4) Hyperglycemia Current Visit: Yes Status: Acute Assessment and plan: A1c 7.3 No history of diabetes mellitus she has been receiving chronic steroids Accu-Chek, before meals at bedtime with sliding scale insulin, Diabetic diet. (5) DVT prophylaxis Current Visit: Yes Status: Acute Assessment and plan: SCDs, Lovenox. - Time Spent With Patient Total time spent is greater than 50% in coordination of care (as documented) at patient's floor/unit and/or counseling patient: - Subjective Interval history: Patient is to undergo kyphoplasty today, based upon revised cardiac risk index patient has a 11% risk for major cardiac event awaiting clearance from cardiology, EKG ordered Echo completed awaiting results. Explained to patient concerns and why cardiology to evaluate patient, verbalized understanding - Constitutional Vitals: Temp Pulse Resp BP Pulse Ox 98.2 F 82 18 174/74 98 02/07/18 06:35 02/07/18 06:35 02/07/18 07:22 02/07/18 06:35 02/07/18 07:22 General appearance: Present: A&O X 3, obese - Head Head exam: Present: atraumatic, normocephalic - Eye Eye exam: Present: PERRL, conjuntiva pink, sclera anicteric Pupils: Present: PERRL - Neck Neck exam general surgery: Present: supple, trachea midline. Absent: lymphadenopathy - Respiratory Respiratory exam: Present: CTAB. Absent: accessory muscle use, rales, rhonchi, wheezes - Cardiovascular Cardiovascular exam: Present: RRR, +S1, +S2. Absent: diastolic murmur, gallop, rubs, systolic murmur - GI/Abdominal GI/Abdominal exam: Present: normal bowel sounds, soft, no peritoneal signs. Absent: distended, tenderness - Extremities Exam Extremities exam: Present: warm, radial pulses palpable and symmetrical. Absent : calf tenderness, cyanotic, pedal edema - Neurological Exam Neurological exam: Present: CN II-XII intact, oriented X3, no focal deficits. Absent: pronater drift, facial droop, speech deficit - Skin Skin exam: Present: dry, intact Internal Medicine: Result - Labs CBC & Chem 7: 02/07/18 04:51 02/07/18 04:51 Labs: Short CBC 02/07/18 Range/Units 04:51 WBC 15.4 H (4.3-11.1) K/mcL Hgb 12.4 (11.5-15.4) g/dL Hct 37.4 (35.3-44.9) % Plt Count 327 (140-400) K/mcL Neutrophils # 12.5 H (1.6-8.9) K/mcL BMP 02/07/18 04:51 Sodium 137 Potassium 3.7 Chloride 101 Carbon Dioxide 30 H BUN 31 H Creatinine 0.55 L Glucose 236 H Calcium 9.3 - ABG Interpretation ABG results: PT/INR, D-dimer PT 11.4 Seconds (9.4-12.1) 02/07/18 04:51 D-Dimer 986 ng/mLFEU (0-500) H 02/05/18 12:48 - Impressions Impressions Chest CTA 02/06/18 15:46 IMPRESSION: No evidence of pulmonary embolism or acute pulmonary abnormality. Chronic appearing anterior wedge compression fractures of about 50% T9 and 75% T10, not present on previous study. Mild cardiomegaly. Calcific atherosclerosis aorta and coronary arteries. D/ / Garrett Vasquez / Garrett Vasquez Interpreting Provider: Garrett Vasquez - VTE Documentation of Mechanical Device: Graduated compression elastic hosiery Consult Discharge Plan - Plan Referrals: Bernadette Sanford PAC [Physician [employer] Production Foreperson] - 02/20/18 11:45 am Dilia Montoya MD [Primary Care Provider] -
[2018-02-07] MEDS: cefTRIAXone 1,000 MG in Water for inj. (sterile) 20 ML 10 ML IVP SCH (08:46)
[2018-02-07] MEDS: Insulin LISPRO 300 UNITS/3 ML VIAL SQ SCH ×4 (08:47→20:39)
--- NOTE | 2018-02-07 08:50 | Cardiology Consult Note ---
<Ashlyn Delgado - Last Filed: 02/07/18 10:23> Date of Encounter: 02/07/18 Time of Encounter: 10:17 Assessment and Plan (1) Shortness of breath Current Visit: Yes Status: Acute Patient had echo completed which was WNL. Patient's dyspnea most likely associated with the compression fracture. Troponin x 4 WNL. From cardiac standpoint patient is cleared for kyphoplasty procedure. Discussion w patient/family: The assessment and plan as outlined above was discussed with the patient and/or family members who expressed understanding and agreement. All questions were answered. Thank you for involving us in the care of your patient. Please call with any questions. History of Present Illness Consult date: 02/07/18 Consult reason: Surgical Clearance Chief complaint: Dyspnea History of present illness: Ms. Church is a 87 year old female with history of hypertension, chf and recently diagnosed T10 fracture 3 weeks ago on x-ray was sent to the ED from Dr. Smith' s office with a complaint of shortness of breath raise blood pressure. Patient was worked up with CTA showing now PE and worsening compression fracture. Cardiology was consulted on the case to clear the patient from a cardiac standpoint for kyphoplasty today. Patient states she has dyspnea at rest and pain radiating from the bilateral shoulder blades around towards the front of her abdomen. Denies chest pain or pressure. Denies any breathing difficulties prior to this incident. Denies syncope or dizziness. Denies any cardiac history. Past Med Surg Social Fam HX - Past Medical History Attestation: Yes The following information was validated with the patient. Medical history: asthma, hypertension, thyroid disease, other Psychiatric history: no psych history - Past Surgical History Surgical History: thyroidectomy - Social History Smoking Status: Never smoker Smokeless Tobacco Status: No Alcohol use: none Drug use: none Medications and Allergies Albuterol Sulfate [Proair Hfa] 2 puff IH Q4H 10/20/16 [History] Atenolol [Tenormin] 25 mg PO DAILY 10/20/16 [History] Cyanocobalamin (B-12) [Vitamin B12] 1,000 mcg IM QMONTH 10/20/16 [History] Diltiazem HCl [Tiazac] 120 mg PO DAILY 10/20/16 [History] Fluticasone/Salmeterol [Advair 500-50 Diskus] 1 puff IH Q12H 10/20/16 [History] HYDROcodone/Acet 5/325 mg [[place] 5-325 mg] 1 tab PO BID PRN 10/20/16 [History] Ipratropium [ATROVENT Inhaler] 2 puff IH QID 10/20/16 [History] Levothyroxine [Synthroid] 125 mcg PO DAILY 10/20/16 [History] Losartan/Hydrochlorothiazide [Hyzaar 100-25 Tablet] 1 each PO DAILY 10/20/16 [ History] Gabapentin [Neurontin] 100 mg PO TID 02/05/18 [History] predniSONE [PredniSONE] 5 mg PO DAILY 02/05/18 [History] 3 Allergy/AdvReac Type Severity Reaction Status Date / Time codeine Allergy Hives Verified 12/29/17 11:24 All Systems Review: The remainder of the systems were reviewed and are negative - Constitutional Constitutional: no fever(s), no night sweats - EENT Eyes: no blurred vision, no loss of vision - Cardiovascular Cardiovascular: as per HPI - Respiratory Respiratory: dyspnea, no hemoptysis, no wheezing - Gastrointestinal Gastrointestinal: no diarrhea, no nausea - Musculoskeletal Musculoskeletal: back pain - Integumentary Integumentary: no rash - Neurological Neurological: no abnormal speech, no focal weakness Physical Examination Vital Signs, Last 4 Hours Temp Pulse Resp BP Pulse Ox 02/07/18 07:22 18 98 02/07/18 06:35 98.2 F 82 17 174/74 94 General: Conversant, No Apparent Distress HEENT: Atraumatic, Normocephaly, Mucus Membranes Moist Neck: No JVD, Normal carotid pulses Cardiac: Reg Rate and Rhythm, Normal S1 and S2, No Murmur Lungs: No Wheeze, Rales, Rhonchi, Other (Decreased breath sounds bilaterally) Neuro: Alert and responsive, No focal deficits noted Abdomen: Soft, Non-Tender Skin: No rashes noted on visualized skin Musculoskeletal: No Chest Wall Tenderness Extremities: No Clubbing, No Cyanosis, No Edema, Normal Pulses Results 02/07/18 04:51 02/07/18 04:51 Lab Results 02/07/18 02/07/18 02/07/18 04:51 04:51 04:51 WBC 15.4 H Hgb 12.4 Hct 37.4 Plt Count 327 INR 1.1 APTT 23.6 L Sodium 137 Potassium 3.7 Chloride 101 Carbon Dioxide 30 H BUN 31 H Creatinine 0.55 L Glucose 236 H Calcium 9.3 Consult Discharge Plan - Plan Referrals: Dilia Montoya MD [Primary Care Provider] - <Jeet Diaz - Last Filed: 02/07/18 10:44> Date of Encounter: 02/07/18 - Attending Attestation I examined this patient and my medical decision-making was reviewed with the Resident Physician. I agree with the documented findings, disposition and treatment plan as described except to the extent set forth below. CC: Back Pain, dysnpena Pt reports two month history of mid back pain, severe, 10/10 with movement, 4/ 10 with rest, much more severe if takes deep breath or coughs, is limiting deep inspiration. PT reports pain is worse with movement, standing is very painful, makes breathing more difficult. She notes taking a deep breath is limited when she stands up. She can breath fairly normal if lies flat and takes smaller breaths. She denies anterior chest pain, pressure, palpitation. She has no previous cardiac history. PMH: Reviewed, discussed with pt and daughter at bedside PE; pt seen and examined, agree with physical findings as documented. IMP/Plan: 1. T 10 compression fracture, source of severe pain, mild shortness of breath due to difficulty with deep inspiration. 2. Asthma: controlled, no wheezing or shortness of breath 3. Hypertension: controlled on current meds 4. Hypothyroid: on replacement REC: Pt is at low cardiovascular risk for planned procedure. Will sign off, please reconsult if can help. Assessment and Plan Discussion w patient/family: The assessment and plan as outlined above was discussed with the patient and/or family members who expressed understanding and agreement. All questions were answered. Thank you for involving us in the care of your patient. Please call with any questions. History of Present Illness History of present illness: Ms. Church is a 87 year old female All Systems Review: The remainder of the systems were reviewed and are negative Physical Examination Vital Signs, Last 4 Hours Temp Pulse Resp BP Pulse Ox 02/07/18 07:22 18 98 02/07/18 06:35 98.2 F 82 17 174/74 94 Lungs: Other (Decreased breath sounds bilaterally, inspiration limited by back pain, pt unable to take deep breath.) Abdomen: Other (mid epigastric tenderness to light palpation, radiates into back.) Results 02/07/18 04:51 02/07/18 04:51 Lab Results 02/07/18 02/07/18 02/07/18 04:51 04:51 04:51 WBC 15.4 H Hgb 12.4 Hct 37.4 Plt Count 327 INR 1.1 APTT 23.6 L Sodium 137 Potassium 3.7 Chloride 101 Carbon Dioxide 30 H BUN 31 H Creatinine 0.55 L Glucose 236 H Calcium 9.3
[2018-02-07] MEDS ORDERED: Cyanocobalamin (B-12) 1,000 MCG/ML VIAL IM SCH (09:00)
[2018-02-07] MEDS ORDERED: *HR* FentaNYL (PF) 100 MCG/2 ML VIAL ONE ×4 (09:56→15:50)
[2018-02-07] MEDS ORDERED: *HR* Propofol 200 MG/20 ML VIAL IVP ONE ×2 (09:56→13:18)
[2018-02-07] MEDS ORDERED: Lidocaine -MPF 2% 2 ML VIAL ONE ×2 (09:57→13:18)
[2018-02-07] MEDS: Diltiazem CD (24hr) 120 MG CAPSULE PO SCH (10:48)
[2018-02-07] MEDS: Losartan/HCTZ 50-12.5 TABLET PO SCH (10:48)
[2018-02-07] MEDS: Gabapentin 100 MG CAPSULE PO SCH ×3 (10:49→20:38)
[2018-02-07] MEDS ORDERED: *HR* Succinylcholine 200 MG/10 ML VIAL IVP ONE (13:18)
[2018-02-07] MEDS ORDERED: Isovue-300 50 ML VIAL IVP ONE (14:08)
--- NOTE | 2018-02-07 14:12 | Anesthesia Evaluation PreOp ---
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 History: TIA (Pt denies), Other (BLE neuropathy) Other Medical History: Bleeding (??DVT), Thyroid ( s/p thyroidectomy), Other ( Polymyalgia rehumatica) Anesthesia History: No Prior Anesthetic Complications, Past Anesthesia ( Thyroidectomy, R-TKA) Alcohol Use: none Drug use: none Medications and Allergies Albuterol Sulfate [Proair Hfa] 2 puff IH Q4H 10/20/16 [History] Atenolol [Tenormin] 25 mg PO DAILY 10/20/16 [History] Cyanocobalamin (B-12) [Vitamin B12] 1,000 mcg IM QMONTH 10/20/16 [History] Diltiazem HCl [Tiazac] 120 mg PO DAILY 10/20/16 [History] Fluticasone/Salmeterol [Advair 500-50 Diskus] 1 puff IH Q12H 10/20/16 [History] HYDROcodone/Acet 5/325 mg [[place] 5-325 mg] 1 tab PO BID PRN 10/20/16 [History] Ipratropium [ATROVENT Inhaler] 2 puff IH QID 10/20/16 [History] Levothyroxine [Synthroid] 125 mcg PO DAILY 10/20/16 [History] Losartan/Hydrochlorothiazide [Hyzaar 100-25 Tablet] 1 each PO DAILY 10/20/16 [ History] Gabapentin [Neurontin] 100 mg PO TID 02/05/18 [History] predniSONE [PredniSONE] 5 mg PO DAILY 02/05/18 [History] 3 Allergy/AdvReac Type Severity Reaction Status Date / Time codeine Allergy Hives Verified 12/29/17 11:24 - Meds/Allergy Pre-op Review Medications Reviewed: Yes Allergies Reviewed: Yes Beta Blockers on Current Med List: Yes (ATenolol) If Beta Blockers taken, Date/Time (Last Dose taken): held by floor 02/07 Anesthesia Results - Labs 02/07/18 04:51 02/07/18 04:51 Laboratory Results Impressions Chest X-Ray 02/05/18 08:52 IMPRESSION: 1. Pulmonary vascular congestion and mild cardiomegaly. 2. Questionable bilateral effusions. 3. Bibasilar airspace opacities potentially representing atelectasis, pneumonia, or aspiration. D/ / Marin Vides MD / Marin Vides MD Interpreting Provider: Marin Vides MD Lumbar Spine MRI 02/05/18 12:36 IMPRESSION: Acute on chronic appearing compression fracture of T9 resulting in 75% loss of vertebral body height. Acute to subacute inferior endplate fracture of T8 resulting in 50% loss of vertebral body height. D/ / Rob Real MD / Rob Real MD Interpreting Provider: Rob Real MD Thoracic Spine MRI 02/05/18 12:36 IMPRESSION: Acute on chronic appearing compression fracture of T9 resulting in 75% loss of vertebral body height. Acute to subacute inferior endplate fracture of T8 resulting in 50% loss of vertebral body height. D/ / Rob Real MD / Rob Real MD Interpreting Provider: Rob Real MD Echocardiogram 02/06/18 12:40 Impressions: LVEF 55%. Normal LV chamber size and function. Mild concentric left ventricular hypertrophy. Mild left ventricular diastolic dysfunction. Normal right ventricular structure and function. Mild aortic regurgitation. No evidence of pulmonary hypertension. alized portions of the main pulmonary artery. Chest CTA 02/06/18 15:46 IMPRESSION: No evidence of pulmonary embolism or acute pulmonary abnormality. Chronic appearing anterior wedge compression fractures of about 50% T9 and 75% T10, not present on previous study. Mild cardiomegaly. Calcific atherosclerosis aorta and coronary arteries. 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 Farida Guillen MD
[2018-02-07] MEDS ORDERED: Acetaminophen IV 1,000 MG/100 ML INFUS..BTL ONE (14:19)
[2018-02-07] MEDS ORDERED: Pregabalin 75 MG CAPSULE ONE (14:26)
[2018-02-07] MEDS ORDERED: Dexamethasone 4 MG/ML VIAL ONE (15:17)
[2018-02-07] MEDS ORDERED: Ondansetron 4 MG/2 ML VIAL ONE (15:17)
[2018-02-07] MEDS ORDERED: Ondansetron 4 MG/2 ML VIAL IVP ONE (15:21)
[2018-02-07] MEDS ORDERED: *HR* Morphine 2 MG/ML SYRINGE IVP PRN (15:21)
[2018-02-07] MEDS ORDERED: *HR* Labetalol 100 MG/20 ML MDV IVP PRN (15:21)
[2018-02-07] MEDS ORDERED: *HR* Rocuronium Bromide 50 MG/5 ML VIAL ONE (15:27)
[2018-02-07] MEDS ORDERED: Neostigmine Methylsulfate 3 MG/3 ML SYRINGE ONE (15:36)
[2018-02-07] MEDS ORDERED: *HR* PHENYLEPHRINE 1,000 MCG/10 ML SYRINGE IVP ONE (15:42)
--- NOTE | 2018-02-07 16:09 | Orthopedic Operative Note ---
Date of procedure: 02/07/18 Pre-op diagnosis: Osteopenia, vertebral compression fractures Post-op diagnosis: same Operation/Findings: Kyphoplasty T8 and T9: The patient was brought to the operative theater where successful endotracheal anesthesia was performed. The patient was given antibiotics prior to the start of the procedure. Compression boots and stockings were used for deep vein thrombosis. Patient was then turned prone on a well-padded Sundar table. The back was prepped and draped in the usual sterile fashion. 2 C-arm fluorographic devices were brought into position such that simultaneous AP and lateral views centered over the involved T9 vertebral body could be performed. A stab incision was made over the superior-lateral aspect of the left T9 pedicle. We introduced a Jamshidi needle into the T9 vertebral body via a transpedicular route. We took biplanar images of the vertebral body using fluorography. The needle was found to be in appropriate position and within the confines of the T9 vertebral body. We then introduced a biopsy trocar and obtained a biopsy specimen of the T9 vertebral body. This was sent for pathologic evaluation. We then removed the biopsy trocar and introduced a Kyphon balloon. The balloon was insufflated to approximately 4 mL volume and subsequently deflated. The balloon was seen to expand within the confines of the T9 vertebral body on biplanar fluorographic views. The balloon was then removed. We then inserted cement trochars and sequentially placed bone cement within the confines of the T9 vertebral body. We took intermittent fluorographic views which confirmed satisfactory placement of the cement. After completion of the cementation process, the trocar was removed. We then turned our attention to the T8 level where a similar 7 procedures was performed. This included accessing the T8 vertebral body via a transpedicular route with a Jamshidi needle. The trocar was seen to be placed satisfactorily within the confines of the T8 vertebral body on biplanar fluorographic views. We then introduced a Kyphon balloon and insufflating the balloon to approximately 4 mL volume and subsequently deflated the balloon. We then sequentially placed bone cement after removal of the balloon while taking intermittent fluorographic views. After satisfactory placement of the cement the Jamshidi needle was removed. We took final AP and lateral fluorographic views. We then closed the stab incisions with 2-0 nylon suture. Two Band- Aids were placed over the wounds. The patient was turned supine on a hospital bed and extubated. All sponge instrument and needle counts were correct at the end of the procedure. The patient tolerated the procedure well without complications. Anesthesia: GETA Surgeon: Mark Smith Jr Was there an conservation assistant present: No Estimated blood loss (cc): 5 Specimen: T9 vertebral biopsy Condition: stable Disposition: PACU
[2018-02-07] MEDS: MORPHINE SUL Oral CONC 10 MG/0.5 ML ORAL.SYG SL PRN ×2 (16:29→16:39)
--- NOTE | 2018-02-07 19:15 | Anesthesia Evaluation Post Op ---
Date of Encounter: 02/07/18 Time of Encounter: 17:00 - Vital Signs Vital Signs: Vital Signs/O2 Sat/Glucose, Most Current Temp Pulse Resp BP Pulse Ox 02/07/18 16:56 98.4 F 82 16 161/78 96 02/07/18 16:46 98.4 F 75 16 168/74 95 02/07/18 16:36 76 20 158/79 94 02/07/18 16:26 80 24 168/75 96 02/07/18 16:16 97 F L 92 24 166/74 95 - Lungs Lungs: Clear Ascult./Percussion - Airway Airway: Non-obstructed - Cardiovascular Regular Rate - Mental Status Mental Status: Alert & Oriented, Answers Appropriately - Pain Pain Scale: 1 Pain Scale used: Numeric (1 - 10) - Nausea Vomiting Nausea Vomiting: Not Present - Hydration Hydration: Ice chips - Discharge PostOp Status: Transfer Patient to floor Anes Supervising Prov Stmt: PT seen/evaluated, VSS and pt has met criteria for discharge to home. - MD Mindy
[2018-02-08 05:24] LABS: Basophils % 0.2 %; Hemoglobin 11.9 g/dL (11.5-15.4); Immature Granulocytes % 1.4 % (0-4); Lymphocytes # 1.1 K/mcL (0.6-4.6); Mean Corpuscular HGB Conc 33.1 g/dL (31.6-35.5); Mean Corpuscular Hemoglobin 33.2 pg (28.0-33.3); Mean Corpuscular Volume 100.6 fL (83.0-100.0); Mean Platelet Volume 9.9 fL (9.4-12.4); Monocytes # 0.8 K/mcL (0.0-1.3); Monocytes % 6.2 %; Neutrophils # 11.2 K/mcL (1.6-8.9); Platelet Count 307 K/mcL (140-400); Red Blood Count 3.58 M/mcL (3.82-4.97); Red Cell Distribution Width 13.4 % (11.5-14.5); Segmented Neutrophils % 84.2 %
[2018-02-08 05:31] LABS: BUN/Creatinine Ratio 42 (6-26); Blood Urea Nitrogen 27 mg/dL (8-23); Calcium 9.3 mg/dL (8.6-10.3); Carbon Dioxide 30 mEq/L (23-29); Chloride 101 mEq/L (98-107); Glucose 248 mg/dL (70-105); Osmolality,Calculated 297 (280-300); Potassium 3.8 mEq/L (3.5-5.1); Sodium 137 mEq/L (136-145); eGFR For African Americans > 60 (> 60); eGFR For Non-African Americans > 60 (> 60)
[2018-02-08] MEDS: Dexamethasone 4 MG/ML VIAL IVP SCH ×2 (05:59→13:12)
[2018-02-08] MEDS: *HR* HYDROcodone/Acet 10/325 mg TABLET PO PRN (06:00)
[2018-02-08] MEDS: Ipratropium 1 PUFF INHALER IH SCH ×3 (08:03→15:57)
[2018-02-08] MEDS: Budesonide/Formoterol 160/4.5 MDI IH SCH (08:03)
[2018-02-08] MEDS: Gabapentin 100 MG CAPSULE PO SCH (08:12)
[2018-02-08] MEDS: Losartan/HCTZ 50-12.5 TABLET PO SCH (08:12)
[2018-02-08] MEDS: Diltiazem CD (24hr) 120 MG CAPSULE PO SCH (08:12)
[2018-02-08] MEDS: Insulin LISPRO 300 UNITS/3 ML VIAL SQ SCH ×2 (08:13→12:11)
--- NOTE | 2018-02-08 09:15 | Orthopedics Progress Note ---
Date of Encounter: 02/08/18 Time of Encounter: 08:50 - Assessment and Plan (1) Status post kyphoplasty Current Visit: Yes Status: Acute (2) Compression fracture of thoracic vertebra Current Visit: Yes Status: Chronic Qualifiers: Encounter type: initial encounter Fracture type: closed Qualified Code(s) : S22.000A - Wedge compression fracture of unspecified thoracic vertebra, initial encounter for closed fracture (3) Osteopenia Current Visit: Yes Status: Chronic Qualifiers: Osteopenia location: unspecified Qualified Code(s): M85.80 - Other specified disorders of bone density and structure, unspecified site Subjective Principal diagnosis: Severe back pain, shortness of breath Interval history: POD#1 Kyphoplasty T8 and T9 on 02/07/[address] Smith for Osteopenia, vertebral compression fractures. The patient is without complaints. Afebrile vital signs are stable. Incision is clean dry and intact. Neurovascularly intact with regard to bilateral lower extremities. Fires all upper and lower extremity motor groups. Patient admits 100% relief in back pain. Assessment: stable Plan: Mobilize with PT Continue analgesics as needed - patient states only tenderness is around incision sites. Discharge planning per primary team. Appropriate for discharge from orthopedic perspective. Keep follow up in office in 2 weeks as scheduled. Objective Vital signs: Vital Signs Temp Pulse Resp BP Pulse Ox 02/08/18 08:07 18 91 02/08/18 06:43 99.1 F 90 16 183/86 92 02/08/18 04:27 18 98 02/08/18 03:17 98.4 F 91 18 158/66 96 02/08/18 00:40 18 97 02/07/18 22:28 98.7 F 104 18 144/75 91 02/07/18 21:30 20 92 02/07/18 19:20 98.1 F 84 20 124/68 93 02/07/18 18:27 83 18 149/89 94 02/07/18 18:00 77 18 153/69 94 02/07/18 17:45 18 153/76 94 02/07/18 17:32 98.3 F 78 18 162/71 95 02/07/18 17:30 78 18 162/71 95 02/07/18 17:15 76 18 125/70 96 02/07/18 16:56 98.4 F 82 16 161/78 96 02/07/18 16:46 98.4 F 75 16 168/74 95 02/07/18 16:36 76 20 158/79 94 02/07/18 16:26 80 24 168/75 96 02/07/18 16:16 97 F L 92 24 166/74 95 18 12:40 156/71 02/07/18 11:41 20 96 02/07/18 11:31 98.5 F 85 18 190/80 96 Intake and Output 02/07/18 02/08/18 02/08/18 23:59 07:59 15:59 Intake Total 240 / 240 Output Total 155 / 155 Balance -155 / -155 240 / 240 Intake: Oral 240 / 240 Output: Urine 150 / 150 Estimated Blood Loss 5 / 5 Other: Meal Dinner Breakfast Percent of Meal Consumed 80% 100% # Voids 1 Weight 84 kg Blood Glucose* 260 220 Patient Weight 02/08/18 23:59 Weight 84 kg - Labs CBC & BMP: 02/08/18 04:03 02/08/18 04:03 Labs: Abnormal lab results WBC 13.3 K/mcL (4.3-11.1) H 02/08/18 04:03 RBC 3.58 M/mcL (3.82-4.97) L 02/08/18 04:03 MCV 100.6 fL (83.0-100.0) H 02/08/18 04:03 Neutrophils # 11.2 K/mcL (1.6-8.9) H 02/08/18 04:03 APTT 23.6 Seconds (26.0-36.0) L 02/07/18 04:51 D-Dimer 986 ng/mLFEU (0-500) H 02/05/18 12:48 Carbon Dioxide 30 mEq/L (23-29) H 02/08/18 04:03 BUN 27 mg/dL (8-23) H 02/08/18 04:03 BUN/Creatinine Ratio 42 (6-26) H 02/08/18 04:03 Glucose 248 mg/dL (70-105) H 02/08/18 04:03 POC Glucose 260 mg/dL (70-99) H 02/07/18 20:11 Hemoglobin A1c 7.3 % (-5.6) H 02/05/18 12:48 B-Natriuretic Peptide 149 pg/mL (Less than 100) H 02/05/18 08:58 Globulin 3.6 g/dL (2.4-3.5) H 02/05/18 08:58 Cholesterol 211 mg/dL (< 200) H 02/06/18 00:42 LDL Cholesterol, Calc 125 mg/dL (0-99) H 02/06/18 00:42 HDL Cholesterol 61 mg/dL (40-59) H 02/06/18 00:42 Urine Glucose (UA) 100 mg/dL (Normal) H 02/05/18 08:44 Ur Leukocyte Esterase Large (Negative) H 02/05/18 08:44 Urine Microscopic WBC 5-15 per hpf (0-3) H 02/05/18 08:44 Ur Squamous Epith Cells Many per lpf (None-Few) H 02/05/18 08:44 Ur Culture Indicated? NO. (NO) A 02/05/18 08:44 - VTE Documentation of Mechanical Device: Intermittent pneumatic compression device Consult Discharge Plan - Plan Referrals: Bernadette Sanford PAC [Physician Payroll Director] - 02/20/18 11:45 am Dilia Montoya MD [Primary Care Provider] -
[2018-02-08 11:03] VITALS: BP 150/75
[2018-02-08] MEDS: Menthol 9.1 MG LOZENGE PO PRN ×2 (12:22→14:53)
--- NOTE | 2018-02-08 14:40 | Discharge Summary ---
- NOTES TO OUTPATIENT PROVIDER Notes to Outpatient Provider: follow up with Dr Leon in 2 weeks Orders not resulted at time of discharge: Pending orders 02/07/18 16:20 Surgical Pathology [PTH] Routine Date of Encounter: 02/08/18 Time of Encounter: 14:33 - Discharge Diagnosis (1) Back pain of thoracolumbar region Priority: Primary Status: Acute (2) Shortness of breath Priority: Secondary Status: Acute (3) Leukocytosis, unspecified Priority: Secondary Status: Acute Qualifiers: Leukocytosis type: unspecified Qualified Code(s): D72.829 - Elevated white blood cell count, unspecified (4) Hyperglycemia Priority: Secondary Status: Acute Hospital course: Ms. Church is a 87 year old female past medical history of hypertension CHF recently diagnosed with T10 fracture 3 weeks ago on x-ray was sent to ED from Dr. Smith's office with complaint shortness of breath raise blood pressure. She presented to the ED had a MRI on admission which revealed compression fractures at T8 and T9. Patient continued to experience shortness of breath during admission her d-dimer was elevated at 998 CTA was completed which ruled out PE. She did have some leukocytosis and hypo-her glycemia secondary to steroid use She underwent a kyphoplasty 02/07/2018 without any complications. She is afebrile and vital signs are stable incisions clean and dry and intact. She is neurovascularly intact, her back pain has been relieved. She was seen by physical therapy and requires no assistance. Oxygen saturation has improved she has been 90-95% on room air. Patient states that she feels much better and is ready for discharge home. I did review follow-up appointments with the patient that she is to see Dr. Smith in 2 weeks as well as follow-up with her primary care physician. Patient verbalized understanding. Continue with current pain medications and home medications. Patient verbalized understanding. She is ready for discharge Discharge discussed with: patient, family - Time Spent with Patient Total time spent providing and/or coordinating discharge services: - Discharge Medications Home Medications: Albuterol Sulfate [Proair Hfa] 2 puff IH Q4H 10/20/16 [History] Atenolol [Tenormin] 25 mg PO DAILY 10/20/16 [History] Cyanocobalamin (B-12) [Vitamin B12] 1,000 mcg IM QMONTH 10/20/16 [History] Diltiazem HCl [Tiazac] 120 mg PO DAILY 10/20/16 [History] Fluticasone/Salmeterol [Advair 500-50 Diskus] 1 puff IH Q12H 10/20/16 [History] HYDROcodone/Acet 5/325 mg [[place] 5-325 mg] 1 tab PO BID PRN 10/20/16 [History] Ipratropium [ATROVENT Inhaler] 2 puff IH QID 10/20/16 [History] Levothyroxine [Synthroid] 125 mcg PO DAILY 10/20/16 [History] Losartan/Hydrochlorothiazide [Hyzaar 100-25 Tablet] 1 each PO DAILY 10/20/16 [ History] Gabapentin [Neurontin] 100 mg PO TID 02/05/18 [History] predniSONE [PredniSONE] 5 mg PO DAILY 02/05/18 [History] Allergies/Adverse Reactions: 3 Allergy/AdvReac Type Severity Reaction Status Date / Time codeine Allergy Hives Verified 12/29/17 11:24 Date of admission: 02/06/18 08:40 Primary care physician: Dilia Montoya, Consults: 02/06/18 16:26 Consult to Cardiology [CONS] Routine Comment: Consulting Provider: Laila Cheng Reason for Consult: surgery clearance Time Notified: 16:26 Call Completed: Yes 02/08/18 08:31 Consult to Occupational Therapy [CONS] Routine Comment: Evaluate, develop and implement POC Reason for Consult: Post kyphoplasty Does patient have active BEDREST order?: No Is patient medically & hemodynamically stable?: Yes Patient assessed for mobility or mobilized this visit?: No Consult to Physical Therapy [CONS] Routine Comment: Evaluate, develop and implement POC Reason for Consult: Post kyphoplasty Does patient have active BEDREST order?: No Is patient medically & hemodynamically stable?: Yes Patient assessed for mobility or mobilized this visit?: Yes Consult to Core Winder Machine Operator [CONS] Routine Reason for SW Consult: Post kyphoplasty Discharging clinician: Sarah Ott Anticipated date of discharge: 02/08/18 - Constitutional Vitals: Temp Pulse Resp BP Pulse Ox 97.8 F 82 16 150/75 92 02/08/18 11:03 02/08/18 11:03 02/08/18 11:30 02/08/18 11:03 02/08/18 11:30 General appearance: Present: A&O X 3, obese - Head Head exam: Present: atraumatic, normocephalic - Eye Eye exam: Present: PERRL, conjuntiva pink, sclera anicteric Pupils: Present: PERRL - Neck Neck exam general surgery: Present: supple, trachea midline. Absent: lymphadenopathy - Respiratory Respiratory exam: Present: CTAB. Absent: accessory muscle use, rales, rhonchi, wheezes - Cardiovascular Cardiovascular exam: Present: RRR, +S1, +S2. Absent: diastolic murmur, gallop, rubs, systolic murmur - GI/Abdominal GI/Abdominal exam: Present: normal bowel sounds, soft, no peritoneal signs. Absent: distended, tenderness - Extremities Exam Extremities exam: Present: warm, radial pulses palpable and symmetrical. Absent : calf tenderness, cyanotic, pedal edema - Neurological Exam Neurological exam: Present: CN II-XII intact, oriented X3, no focal deficits. Absent: pronater drift, facial droop, speech deficit - Skin Skin exam: Present: dry, intact - Patient Status Disposition: Home, Self-Care Condition: Good Functional capacity at discharge: independent ambulation Overall status at discharge: patient is progressing back to baseline - Discharge Instructions Follow Up With: Bernadette Sanford PAC [Physician Oiler Bander] - 02/20/18 11:45 am Dilia Montoya MD [Primary Care Provider] - - Diet and Activity Activity: increase activity as tolerated Diet: advance to your usual diet - VTE Documentation of Mechanical Device: Intermittent pneumatic compression device
--- NOTE | 2018-02-09 19:36 | Electrocardiograph Report ---
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
== END 2018-02-08 16:25 | disposition home or self-care (01) | DRG 478 ==
LOC: 3BNU 08:28 → EMEROO 08:28 → 3BNU 12:12
PROVIDERS: ADMIT Pediatrics; ATTEND Pediatrics

== ENCOUNTER 2018-03-05 05:24 | Inpatient (IN) ==
--- NOTE | 2018-03-05 05:31 | Emergency Department Note ---
Disposition Clinical Impression: Dyspnea Qualifiers: Dyspnea type: unspecified Qualified Code(s): R06.00 - Dyspnea, unspecified Back pain Qualifiers: Back pain location: back pain in unspecified location Chronicity: unspecified Back pain laterality: unspecified Qualified Code(s): M54.9 - Dorsalgia, unspecified Disposition: Still a Patient Condition: Good Referrals: Dilia Montoya MD [Primary Care Provider] - Forms: ED Satisfaction Letter Time of Disposition: 06:30 SOB HPI - General Chief Complaint: ED Shortness of Breath/Dyspnea Stated Complaint: difficulty in breathing Time Seen by Provider: 03/05/18 05:29 Source: patient Mode of arrival: ambulatory Limitations: no limitations Nursing Notes Reviewed: Yes Vital Signs Reviewed: Yes - History of Present Illness Patient is an 87-year-old female with past medical history of recent spine surgery due to compression fractures at the end of January 2018. She denies any falls or any specific cause for compression fractures. She is supposed to follow-up with Dr. Cummings today for further MRIs of the spine to assess for any further fractures. She presents today due to shortness of breath. She states that it was sudden in onset around 8 PM on the evening of 03/04/18. This is approximately 9 hours prior to arrival. She says that she is not able to lie back at all due to shortness of breath. Denies any known CHF but does state that she is on "water pill" but does not know the dosage. Denies any chest pain. Denies any other nausea, vomiting, fevers, abdominal pain, leg swelling, calf pain. - Related Data Home Medications Medication Instructions Recorded Confirmed Albuterol Sulfate [Proair Hfa] 2 puff IH Q4H 10/20/16 02/05/18 Atenolol [Tenormin] 25 mg PO DAILY 10/20/16 02/05/18 Cyanocobalamin (B-12) [Vitamin B12] 1,000 mcg IM QMONTH 10/20/16 02/05/18 Diltiazem HCl [Tiazac] 120 mg PO DAILY 10/20/16 02/05/18 Fluticasone/Salmeterol [Advair 1 puff IH Q12H 10/20/16 02/05/18 500-50 Diskus] HYDROcodone/Acet 5/325 mg [[place] 1 tab PO BID PRN 10/20/16 02/05/18 5-325 mg] Ipratropium [ATROVENT Inhaler] 2 puff IH QID 10/20/16 02/05/18 Levothyroxine [Synthroid] 125 mcg PO DAILY 10/20/16 02/05/18 Losartan/Hydrochlorothiazide 1 each PO DAILY 10/20/16 02/05/18 [Hyzaar 100-25 Tablet] Gabapentin [Neurontin] 100 mg PO TID 02/05/18 02/05/18 predniSONE [PredniSONE] 5 mg PO DAILY 02/05/18 02/05/18 Previous Rx's Medication Instructions Recorded Doxycycline 100 mg PO BID #14 capsule 02/20/18 Lidocaine Patch [Lidoderm 5% patch] 1 each TP DAILY #5 adh..patch 02/20/18 Meloxicam [Mobic] 7.5 mg PO DAILY #7 tablet 02/20/18 predniSONE [PredniSONE] 40 mg PO DAILY #8 tablet 02/20/18 Allergies Allergy/AdvReac Type Severity Reaction Status Date / Time codeine Allergy Hives Verified 12/29/17 11:24 All systems ED: reviewed and negative except as stated. Constitutional: Denies: fever Cardiovascular: Denies: chest pain Respiratory: Reports: dyspnea. Denies: cough, wheezes Gastrointestinal: Denies: abdominal pain, nausea, vomiting Genitourinary: Denies: urgency, dysuria, frequency, hematuria Neurological: Denies: headache, weakness, numbness, paresthesias Past Medical History - Past Medical History Attestation: Yes The following information was validated with the patient. 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: Reports: no LABORER ELECTROPLATING history - Social History Smoking Status: Never smoker Smokeless Tobacco Status: No Alcohol use: Reports: none Drug use: Reports: none Physical Exam - General Limitations: no limitations General appearance: alert, anxious - Head Head exam: atraumatic, normocephalic, normal inspection - Eye Eye exam: Present: normal appearance, PERRL, EOMI - ENT ENT exam: normal exam, normal oropharynx, mucous membranes moist - Neck Neck exam: Present: normal inspection, full ROM, trachea midline - Chest Chest inspection: Present: normal inspection, symmetric chest wall rise - Respiratory Respiratory exam: Present: respiratory distress (mild to moderate), accessory muscle use, other (mild decrease aeration throughout, no overt wheezes ) - Cardiovascular Cardiovascular exam: Present: regular rate, normal rhythm, normal heart sounds - Abdominal Exam Abdominal exam: Present: soft, Non-Tender. Absent: tenderness, distention, guarding, rebound, rigidity - Extremities Exam Extremities exam: Present: normal inspection, full ROM. Absent: tenderness, pedal edema - Neurological Exam Neurological exam: Present: alert, oriented X3 - Psychiatric Psychiatric exam: Present: normal affect, normal mood - Skin Skin exam: Present: warm, dry, intact, normal color Course Course Narrative: Patient was tachycardic, oxygen dropping down to 91% on room air. She does have a recent surgery hx, concern for PE. We will perform basic blood work, chest x-ray, troponin. Also perform a CT of the chest to assess for PE. Will sign out to day team for further care and dispo, Dr. Infante and Dr. Stevens. Vital Signs Temperature 98.4 F 03/05/18 05:25 Pulse Rate 105 03/05/18 05:25 Respiratory Rate 24 03/05/18 05:25 Blood Pressure 172/110 03/05/18 05:25 O2 Sat by Pulse Oximetry 95 03/05/18 05:25 Temperature 98.4 F 03/05/18 05:25 Pulse Rate 105 03/05/18 05:25 Respiratory Rate 24 03/05/18 05:25 Blood Pressure 172/110 03/05/18 05:25 O2 Sat by Pulse Oximetry 95 03/05/18 05:25 Oxygen Delivery Oxygen Delivery Room Air Shortness of Breath/Dyspnea - [facility] Narrative Medical decision making narrative: Patient was tachycardic, oxygen dropping down to 91% on room air. She does have a recent surgery hx, concern for PE. We will perform basic blood work, chest x-ray, troponin. Also perform a CT of the chest to assess for PE. Will sign out to day team for further care and dispo, Dr. Infante and Dr. Stevens. - Medical Records Medical records reviewed: Yes I reviewed the patient's medical records. - Lab Data Lab results reviewed: Yes I reviewed the patient's lab results. - Radiology Data Radiology results reviewed: Yes I reviewed the patient's radiology results. Chest X-Ray 03/05/18 05:42 IMPRESSION: Hyperventilatory changes. No radiographic evidence of acute cardiopulmonary process. Left basilar atelectasis. D/ / Corona Morris MD / Corona Morris MD Interpreting Provider: Corona Morris MD - EKG Data EKG attestation: Yes I reviewed and interpreted this EKG. EKG results narrative: 03/05/2018 at 05:40. Sinus tachycardia. Rate 108. MN 203. QRS 140. QTC 427. Left axis deviation. No acute ST elevation or depression. S.B.A.R. - S.B.A.R. Situation: Demographics, MOA Background: Presenting Complaint, Relevant PMH, Meds, & Allergies Assessment: Vital Signs, Course and respsone to treatment, Exam Concerns, Patient/Family Expectation, Pertinant Lab Results, Outstanding Labs Recommendation: Barrier(s) to disposition, Recommendation based on pending studies, treatments, or consults S.B.A.R. Report Given to: Dr. Infante, Dr. Stevens Attestation Statement - Attestation Attestation: I examined this patient and my medical decision-making was reviewed with the Resident Physician. I agree with the documented findings, disposition and treatment plan as described except to the extent set forth below. Findings consistent with back pain and dyspnea as well as hypoxia. Concern for pulmonary embolism. We will proceed with advanced imaging including CT scan of the chest rule out pulmonary embolism. Final disposition will be pending results of advanced imaging.
[2018-03-05] MEDS ORDERED: Ipratropium/Albuterol Neb 3 ML IH ONE (05:44)
[2018-03-05] MEDS ORDERED: methylPREDNISolone 125 MG/2 ML VIAL IVP ONE (05:44)
[2018-03-05] MEDS ORDERED: *HR* FentaNYL (PF) 100 MCG/2 ML VIAL IVP ONE (05:57)
[2018-03-05 06:47] LABS: Troponin I 0.03 ng/mL (< 0.04)
[2018-03-05 06:49] LABS: BUN/Creatinine Ratio 26 (6-26); Basophils # 0.1 K/mcL (0.0-0.2); Blood Urea Nitrogen 20 mg/dL (8-23); Calcium 9.7 mg/dL (8.6-10.3); Carbon Dioxide 27 mEq/L (23-29); Chloride 100 mEq/L (98-107); Eosinophils # 0.1 K/mcL (0.0-0.6); Eosinophils % 1.2 %; Glucose 153 mg/dL (70-105); Hematocrit 34.6 % (35.3-44.9); Hemoglobin 11.7 g/dL (11.5-15.4); Immature Granulocytes % 2.9 % (0-4); Lymphocytes # 1.9 K/mcL (0.6-4.6); Lymphocytes % 20.6 %; Mean Corpuscular HGB Conc 33.8 g/dL (31.6-35.5); Mean Corpuscular Hemoglobin 33.6 pg (28.0-33.3); Mean Corpuscular Volume 99.4 fL (83.0-100.0); Mean Platelet Volume 9.8 fL (9.4-12.4); Monocytes % 10.2 %; Osmolality,Calculated 292 (280-300); Platelet Count 299 K/mcL (140-400); Potassium 3.2 mEq/L (3.5-5.1); Red Blood Count 3.48 M/mcL (3.82-4.97); Red Cell Distribution Width 13.3 % (11.5-14.5); Segmented Neutrophils % 64.1 %; Sodium 138 mEq/L (136-145); eGFR For African Americans > 60 (> 60); eGFR For Non-African Americans > 60 (> 60)
[2018-03-05] MEDS ORDERED: *HR* HYDROmorphone (PF) 1 MG/ML SYRINGE IVP ONE (07:16)
[2018-03-05] MEDS ORDERED: *HR* Enoxaparin 120 MG/0.8 ML SYRINGE SQ ONE (07:17)
--- NOTE | 2018-03-05 07:44 | Emergency Department Note ---
Disposition Clinical Impression: Tachycardia, Hypoxia Dyspnea Qualifiers: Dyspnea type: unspecified Qualified Code(s): R06.00 - Dyspnea, unspecified Back pain Qualifiers: Back pain location: back pain in unspecified location Chronicity: unspecified Back pain laterality: unspecified Qualified Code(s): M54.9 - Dorsalgia, unspecified Pulmonary embolism Qualifiers: Pulmonary embolism type: other Chronicity: acute Acute cor pulmonale presence: without acute cor pulmonale Qualified Code(s): I26.99 - Other pulmonary embolism without acute cor pulmonale Disposition: Admitted As Inpatient Condition: Good Time of Disposition: 09:30 General Adult HPI - General Chief complaint: ED Shortness of Breath/Dyspnea Stated complaint: difficulty in breathing Time Seen by Provider: 03/05/18 05:29 Source: patient Mode of arrival: ambulatory Limitations: no limitations Nursing Notes Reviewed: Yes Vital Signs Reviewed: Yes - History of Present Illness HPI Narrative: Refer to Pain Scale: 5 - Related Data Home Medications Medication Instructions Recorded Confirmed Albuterol Sulfate [Proair Hfa] 2 puff IH Q4H 10/20/16 03/05/18 Atenolol [Tenormin] 25 mg PO DAILY 10/20/16 03/05/18 Diltiazem HCl [Tiazac] 120 mg PO DAILY 10/20/16 03/05/18 Fluticasone/Salmeterol [Advair 1 puff IH Q12H 10/20/16 03/05/18 500-50 Diskus] Ipratropium [ATROVENT Inhaler] 2 puff IH QID 10/20/16 03/05/18 Levothyroxine [Synthroid] 125 mcg PO DAILY 10/20/16 03/05/18 Losartan/Hydrochlorothiazide 1 each PO DAILY 10/20/16 03/05/18 [Hyzaar 100-25 Tablet] Gabapentin [Neurontin] 100 mg PO TID 02/05/18 03/05/18 predniSONE [PredniSONE] 5 mg PO DAILY 02/05/18 03/05/18 Previous Rx's Medication Instructions Recorded Lidocaine Patch [Lidoderm 5% patch] 1 each TP DAILY #5 adh..patch 02/20/18 Meloxicam [Mobic] 7.5 mg PO DAILY #7 tablet 02/20/18 Allergies Allergy/AdvReac Type Severity Reaction Status Date / Time codeine Allergy Hives Verified 12/29/17 11:24 Constitutional: Denies: fever Cardiovascular: Denies: chest pain Respiratory: Reports: dyspnea. Denies: cough, wheezes Gastrointestinal: Denies: abdominal pain, nausea, vomiting Genitourinary: Denies: urgency, dysuria, frequency, hematuria Neurological: Denies: headache, weakness, numbness, paresthesias Past Medical History - Past Medical History Medical history: Reports: asthma, hypertension, thyroid disease, other Surgical history: Reports: thyroidectomy Psychiatric history: Reports: no psych history SPLUNK DEVELOPER history: Reports: no SPLUNK DEVELOPER history - Social History Smoking Status: Never smoker Smokeless Tobacco Status: No Alcohol use: Reports: none Drug use: Reports: none Physical Exam - General Limitations: no limitations General appearance: alert, anxious Course Vital Signs Temperature 98.4 F 03/05/18 05:25 Pulse Rate 105 03/05/18 05:25 Respiratory Rate 24 03/05/18 05:25 Blood Pressure 172/110 03/05/18 05:25 O2 Sat by Pulse Oximetry 95 03/05/18 05:25 Temperature 98.2 F 03/05/18 19:00 Pulse Rate 75 03/05/18 19:00 Respiratory Rate 18 03/05/18 19:00 Blood Pressure 148/70 03/05/18 19:00 O2 Sat by Pulse Oximetry 92 03/05/18 19:00 Oxygen Delivery Oxygen Delivery Nasal Cannula Medical Decision Making - [facility] Narrative Medical decision making narrative: 87-year-old female who presents to the emergency department with shortness of breath. Patient transfer of care given today team. Refer to all previous notes for history of present illness, physical exam, medical decision-making. Patient has no known history of COPD. She presents since the emergency department with oxygen saturation 91% on room air. Provided 2 L of nasal cannula. Patient persistently tachycardic throughout her stay in the emergency department. Is not showing any signs of dehydration at this time. Chest x-ray does not reveal any evidence of pneumonia. Patient has a lot of back pain and needs CTA. However, patient is getting MRIs tomorrow. Discussed extensively with patient about obtaining CTA here in the emergency department. Patient request to not have this done at this time as she cannot tolerate the CTA. We will primitively give Lovenox for possible pulmonary embolus at this time. We will admit patient for pain control and provided Lovenox here in the emergency department. Patient is mildly hypokalemic here. We will provide 40 mg of potassium. Spoke with hospitalist on the phone. Hospitalist agreed to accept patient for admission. After patient was admitted, CTA was obtained and revealed pulmonary embolism extending from the bifurcation of the right pulmonary artery into the right upper lobe artery. Hospitalist was called and the results were discussed by my attending Dr. Stevens. Chest X-Ray 03/05/18 05:42 IMPRESSION: Hyperventilatory changes. No radiographic evidence of acute cardiopulmonary process. Left basilar atelectasis. D/ / Corona Morris MD / Corona Morris MD Interpreting Provider: Corona Morris MD Chest X-Ray 03/05/18 05:42 IMPRESSION: 1. Hyperventilatory changes. No radiographic evidence of acute cardiopulmonary process. 2. Left basilar atelectasis. D/ / 03/05/2018 08:26:32 Corona Morris MD / dov Interpreting Provider: Corona Morris MD Chest CTA 03/05/18 05:43 IMPRESSION: 1. New acute pulmonary embolism extending from the bifurcation of the right pulmonary artery into the right upper lobe artery and its apical segmental branch. Critical results were called by Dr. Marin Vides MD to Dr. Stevens on 03/05/2018 at 09:17. 2. Findings potentially related to right heart strain. 3. New mosaic attenuation in the lungs potentially related to pulmonary edema. Small vessels or small airways disease could appear similar. 4. New acute to subacute moderate T10 compression fracture, likely related to insufficiency in the setting of osteoporosis. No features suggestive of instability. 5. 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 Recommend follow-up imaging in 1 year as below. 6. 1.7 cm x 1.5 cm peripherally calcified nodule in the right thyroid lobe, previously evaluated with sonography. RECOMMENDATIONS: Managing Incidental Vascular Findings on CT and MRI Splenic artery aneurysm, <2 cm: Follow-up imaging every 1 year Reference: Donna et al. Managing incidental findings on abdominal and pelvic CT and MRI, part 2: white paper of the ACR Incidental Findings Committee II on vascular findings. J Am Tomás Radiol 2013;10:789-794. Managing Incidental Thyroid Nodule Detected at CT or MRI or US 1. Further evaluation by thyroid Ultrasound recommended for these incidental nodules: Patient Age 35 years or more - Nodule 1.5 cm in size or greater 3. NO further imaging is recommended in the following scenarios - Any nodule not meeting above criteria. - Those patients with limited life expectancy or significant comorbidities. Note: These recommendations do not apply to pts. w/ increased risk for thyroid cancer or pts. with symptomatic thyroid disease. Recommendations for f/u of Incidental Thyroid Nodules (ITN) found on CT, MR, NM and Extrathyroidal US are based upon the ACR white paper and Barraza 3-tiered system for managing ITNs: J Am Tomás Radiol. 2015 Nov;12(2): 143-50 D/ / Marin Vides MD / Marin Vides MD Interpreting Provider: Marin Vides MD Lumbar Spine MRI 03/05/18 09:38 IMPRESSION: No lumbar fracture detected. Degenerative changes with impingement of the exiting L5 nerve root on the left at L5-S1. D/ / Rob Real MD / Rob Real MD Interpreting Provider: Rob Real MD Thoracic Spine MRI 03/05/18 09:38 IMPRESSION: Acute compression fracture of T10, resulting in 25% loss of vertebral body height. Chronic superior endplate fracture of T12. The findings were sent to the Radiology Results Communication Center at 7:27 pm on 03/05/2018to be communicated to a licensed caregiver. D/ / Rob Real MD / Rob Real MD Interpreting Provider: Rob Real MD - Lab Data Lab results reviewed: Yes I reviewed the patient's lab results. Result diagrams: 03/05/18 06:05 03/05/18 06:05 Lab Results 03/05/18 03/05/18 03/05/18 Range/Units 06:05 06:05 06:05 WBC 9.3 (4.3-11.1) K/mcL RBC 3.48 L (3.82-4.97) M/mcL Hgb 11.7 (11.5-15.4) g/dL Hct 34.6 L (35.3-44.9) % MCV 99.4 (83.0-100.0) fL MCH 33.6 H (28.0-33.3) pg MCHC 33.8 (31.6-35.5) g/dL RDW 13.3 (11.5-14.5) % Plt Count 299 (140-400) K/mcL MPV 9.8 (9.4-12.4) fL Immature Gran % 2.9 (0-4) % Seg Neutrophils % 64.1 % Lymphocytes % 20.6 % Monocytes % 10.2 % Eosinophils % 1.2 % Basophils % 1.0 % Neutrophils # 6.0 (1.6-8.9) K/mcL Lymphocytes # 1.9 (0.6-4.6) K/mcL Monocytes # 1.0 (0.0-1.3) K/mcL Eosinophils # 0.1 (0.0-0.6) K/mcL Basophils # 0.1 (0.0-0.2) K/mcL PT (9.4-12.1) Seconds INR D-Dimer (0-500) ng/mLFEU Sodium 138 (136-145) mEq/L Potassium 3.2 L (3.5-5.1) mEq/L Chloride 100 (98-107) mEq/L Carbon Dioxide 27 (23-29) mEq/L BUN 20 (8-23) mg/dL Creatinine 0.77 (0.60-1.20) mg/dL Est GFR ( Amer) > 60 (> 60) Est GFR (Non-Af Amer) > 60 (> 60) BUN/Creatinine Ratio 26 (6-26) Glucose 153 H (70-105) mg/dL Calculated Osmolality 292 (280-300) Lactic Acid 1.9 (0.5-2.2) mmol/L Calcium 9.7 (8.6-10.3) mg/dL Troponin I 0.03 (< 0.04) ng/mL B-Natriuretic Peptide (Less than 100) pg/mL 03/05/18 03/05/18 Range/Units 06:05 09:02 WBC (4.3-11.1) K/mcL RBC (3.82-4.97) M/mcL Hgb (11.5-15.4) g/dL Hct (35.3-44.9) % MCV (83.0-100.0) fL MCH (28.0-33.3) pg MCHC (31.6-35.5) g/dL RDW (11.5-14.5) % Plt Count (140-400) K/mcL MPV (9.4-12.4) fL Immature Gran % (0-4) % Seg Neutrophils % % Lymphocytes % % Monocytes % % Eosinophils % % Basophils % % Neutrophils # (1.6-8.9) K/mcL Lymphocytes # (0.6-4.6) K/mcL Monocytes # (0.0-1.3) K/mcL Eosinophils # (0.0-0.6) K/mcL Basophils # (0.0-0.2) K/mcL PT 13.4 H (9.4-12.1) Seconds INR 1.2 D-Dimer 3132 H (0-500) ng/mLFEU Sodium (136-145) mEq/L Potassium (3.5-5.1) mEq/L Chloride (98-107) mEq/L Carbon Dioxide (23-29) mEq/L BUN (8-23) mg/dL Creatinine (0.60-1.20) mg/dL Est GFR ( Amer) (> 60) Est GFR (Non-Af Amer) (> 60) BUN/Creatinine Ratio (6-26) Glucose (70-105) mg/dL Calculated Osmolality (280-300) Lactic Acid (0.5-2.2) mmol/L Calcium (8.6-10.3) mg/dL Troponin I (< 0.04) ng/mL B-Natriuretic Peptide 85 (Less than 100) pg/mL Attestation Statement - Attestation Attestation: I, Maximo Stevens DO, examined this patient [id number] and my medical decision-making was reviewed with Dr. Domingo Infante, Resident Physician. I agree with the documented findings, disposition and treatment plan as described except to the extent set forth below. Please see my progress notes for details.
--- NOTE | 2018-03-05 07:44 | Emergency Department Note ---
Disposition Clinical Impression: Dyspnea Qualifiers: Dyspnea type: unspecified Qualified Code(s): R06.00 - Dyspnea, unspecified Back pain Qualifiers: Back pain location: back pain in unspecified location Chronicity: unspecified Back pain laterality: unspecified Qualified Code(s): M54.9 - Dorsalgia, unspecified Disposition: Admitted As Inpatient Condition: Good Referrals: Dilia Montoya MD [Primary Care Provider] - Forms: ED Satisfaction Letter Time of Disposition: 08:26 General Adult HPI - General Chief complaint: ED Shortness of Breath/Dyspnea Stated complaint: difficulty in breathing Time Seen by Provider: 03/05/18 05:29 Source: patient Mode of arrival: ambulatory Limitations: no limitations - History of Present Illness Pain Scale: 5 - Related Data Home Medications Medication Instructions Recorded Confirmed Albuterol Sulfate [Proair Hfa] 2 puff IH Q4H 10/20/16 02/05/18 Atenolol [Tenormin] 25 mg PO DAILY 10/20/16 02/05/18 Cyanocobalamin (B-12) [Vitamin B12] 1,000 mcg IM QMONTH 10/20/16 02/05/18 Diltiazem HCl [Tiazac] 120 mg PO DAILY 10/20/16 02/05/18 Fluticasone/Salmeterol [Advair 1 puff IH Q12H 10/20/16 02/05/18 500-50 Diskus] HYDROcodone/Acet 5/325 mg [[place] 1 tab PO BID PRN 10/20/16 02/05/18 5-325 mg] Ipratropium [ATROVENT Inhaler] 2 puff IH QID 10/20/16 02/05/18 Levothyroxine [Synthroid] 125 mcg PO DAILY 10/20/16 02/05/18 Losartan/Hydrochlorothiazide 1 each PO DAILY 10/20/16 02/05/18 [Hyzaar 100-25 Tablet] Gabapentin [Neurontin] 100 mg PO TID 02/05/18 02/05/18 predniSONE [PredniSONE] 5 mg PO DAILY 02/05/18 02/05/18 Previous Rx's Medication Instructions Recorded Doxycycline 100 mg PO BID #14 capsule 02/20/18 Lidocaine Patch [Lidoderm 5% patch] 1 each TP DAILY #5 adh..patch 02/20/18 Meloxicam [Mobic] 7.5 mg PO DAILY #7 tablet 02/20/18 predniSONE [PredniSONE] 40 mg PO DAILY #8 tablet 02/20/18 Allergies Allergy/AdvReac Type Severity Reaction Status Date / Time codeine Allergy Hives Verified 12/29/17 11:24 Constitutional: Denies: fever Cardiovascular: Denies: chest pain Respiratory: Reports: dyspnea. Denies: cough, wheezes Gastrointestinal: Denies: abdominal pain, nausea, vomiting Genitourinary: Denies: urgency, dysuria, frequency, hematuria Neurological: Denies: headache, weakness, numbness, paresthesias Past Medical History - Past Medical History Medical history: Reports: asthma, hypertension, thyroid disease, other Surgical history: Reports: thyroidectomy Psychiatric history: Reports: no psych history CLINICAL EDUCATION SPECIALIST history: Reports: no CLINICAL EDUCATION SPECIALIST history - Social History Smoking Status: Never smoker Smokeless Tobacco Status: No Alcohol use: Reports: none Drug use: Reports: none Physical Exam - General Limitations: no limitations General appearance: alert, anxious Course Vital Signs Temperature 98.4 F 03/05/18 05:25 Pulse Rate 105 03/05/18 05:25 Respiratory Rate 24 03/05/18 05:25 Blood Pressure 172/110 03/05/18 05:25 O2 Sat by Pulse Oximetry 95 03/05/18 05:25 Temperature 98.4 F 03/05/18 05:30 Pulse Rate 123 03/05/18 06:27 Respiratory Rate 20 03/05/18 06:27 Blood Pressure 137/90 03/05/18 06:27 O2 Sat by Pulse Oximetry 97 03/05/18 06:27 Oxygen Delivery Oxygen Delivery Nasal Cannula Medical Decision Making - Lab Data Result diagrams: 03/05/18 06:05 03/05/18 06:05 Lab Results 03/05/18 03/05/18 03/05/18 Range/Units 06:05 06:05 06:05 WBC 9.3 (4.3-11.1) K/mcL RBC 3.48 L (3.82-4.97) M/mcL Hgb 11.7 (11.5-15.4) g/dL Hct 34.6 L (35.3-44.9) % MCV 99.4 (83.0-100.0) fL MCH 33.6 H (28.0-33.3) pg MCHC 33.8 (31.6-35.5) g/dL RDW 13.3 (11.5-14.5) % Plt Count 299 (140-400) K/mcL MPV 9.8 (9.4-12.4) fL Immature Gran % 2.9 (0-4) % Seg Neutrophils % 64.1 % Lymphocytes % 20.6 % Monocytes % 10.2 % Eosinophils % 1.2 % Basophils % 1.0 % Neutrophils # 6.0 (1.6-8.9) K/mcL Lymphocytes # 1.9 (0.6-4.6) K/mcL Monocytes # 1.0 (0.0-1.3) K/mcL Eosinophils # 0.1 (0.0-0.6) K/mcL Basophils # 0.1 (0.0-0.2) K/mcL Sodium 138 (136-145) mEq/L Potassium 3.2 L (3.5-5.1) mEq/L Chloride 100 (98-107) mEq/L Carbon Dioxide 27 (23-29) mEq/L BUN 20 (8-23) mg/dL Creatinine 0.77 (0.60-1.20) mg/dL Est GFR ( Amer) > 60 (> 60) Est GFR (Non-Af Amer) > 60 (> 60) BUN/Creatinine Ratio 26 (6-26) Glucose 153 H (70-105) mg/dL Calculated Osmolality 292 (280-300) Lactic Acid 1.9 (0.5-2.2) mmol/L Calcium 9.7 (8.6-10.3) mg/dL Troponin I 0.03 (< 0.04) ng/mL B-Natriuretic Peptide (Less than 100) pg/mL 03/05/18 Range/Units 06:05 WBC (4.3-11.1) K/mcL RBC (3.82-4.97) M/mcL Hgb (11.5-15.4) g/dL Hct (35.3-44.9) % MCV (83.0-100.0) fL MCH (28.0-33.3) pg MCHC (31.6-35.5) g/dL RDW (11.5-14.5) % Plt Count (140-400) K/mcL MPV (9.4-12.4) fL Immature Gran % (0-4) % Seg Neutrophils % % Lymphocytes % % Monocytes % % Eosinophils % % Basophils % % Neutrophils # (1.6-8.9) K/mcL Lymphocytes # (0.6-4.6) K/mcL Monocytes # (0.0-1.3) K/mcL Eosinophils # (0.0-0.6) K/mcL Basophils # (0.0-0.2) K/mcL Sodium (136-145) mEq/L Potassium (3.5-5.1) mEq/L Chloride (98-107) mEq/L Carbon Dioxide (23-29) mEq/L BUN (8-23) mg/dL Creatinine (0.60-1.20) mg/dL Est GFR ( Amer) (> 60) Est GFR (Non-Af Amer) (> 60) BUN/Creatinine Ratio (6-26) Glucose (70-105) mg/dL Calculated Osmolality (280-300) Lactic Acid (0.5-2.2) mmol/L Calcium (8.6-10.3) mg/dL Troponin I (< 0.04) ng/mL B-Natriuretic Peptide 85 (Less than 100) pg/mL Attestation Statement - Attestation Attestation: I, Maximo Stevens DO, examined this patient [id number] and my medical decision-making was reviewed with Dr. Domingo Infante, Resident Physician. I agree with the documented findings, disposition and treatment plan as described except to the extent set forth below. Please see my progress notes for details. 87-year-old female well known to myself presents to the emergency room for evaluation of persistent back pain as well as shortness of breath and tachycardia today. Patient was seen by the overnight physician Dr. Taylor. They recommended CT angiography of the chest. Patient is scheduled to have MRIs of her spine tomorrow via sedated treatment. Patient has been seen twice by myself here in the emergency room and had very detailed evaluations completed after she had a T8-T9 kyphoplasty within the last several months. Patient is have persistent pain that radiates around circumferentially on the chest wall. Patient says now she cannot do anything but sit upright and has severe pain anytime she moves or takes deep breaths. Patient has no neurologic deficits at this time. She is ambulatory she has normal sensation in the L3-L5 dermatomes of the lower extremities she has no paresthesias across the chest wall torso or abdomen. She has no rashes or lesions noted this time. She denies any other trauma or injury at this point. Vital signs are stable except for tachycardia and hypoxia is requiring oxygen. Patient was scheduled for CT angiography but she refuses [place] says that she cannot lie flat. Had a lengthy discussion with the patient the bedside about the determined treatment course. I recommended admission to her last evaluation but the patient refused considering she did not want to be admitted just for pain control. Patient now is agreeable to admission secondary to pain control and the recommendation to be started on blood thinners until CT angiography can be completed tomorrow in conjunction with her MRIs. Patient otherwise has stable laboratory workup with a normal hemoglobin and platelet count. Denies any melena or hematochezia hematemesis or vaginal discharge or bleeding at this time. Patient still has concern for pulmonary emboli based on the presentation history. Patient is deferred CT angiography at this time. She will be started on blood thinners this time. Patient pulses will be completed for pain control and definitive management. Lengthy discussion was had with the patient. See detailed documentation of physical exam, medical intervention, medical decision-making and disposition the resident physician's note. 0815 Patient was except to the hospital for pain management as well as the imaging modalities. They agreed with the intervention including the blood thinner. Patient is otherwise clinically stable. Pain medication provided by mouth and by IV here in the emergency room. Family the patient both informed that comfortable and happy with the care. Admission process to be completed this time.
[2018-03-05] MEDS ORDERED: Naloxone 0.4 MG/ML INJ IVP PRN (09:18)
--- NOTE | 2018-03-05 09:36 | Internal Med History&Physical ---
Date of Encounter: 03/05/18 Time of Encounter: 09:05 Internal Medicine - H&P: HPI Chief complaint: shortness of breath Admitted From: Home Plans for Post Hospital Care: Home History of present illness: Ms. Church is a 87 year old female with PMH of HTN, peripheral neuropathy, chronic back pain s/p kyphoplasty T8 and T9, and hypothyroidism on 02/07/18 who presents to the ER for evaluation of acute onset of shortness of breath. Pt states she couldn't lay down flat due to severe pain. Upon arrival to the ER, she was noted to be tachycardic and hypoxic. She was placed on O2 supplementation and was given pain medications for management of her chronic back pain. Pt continued to refuse CTA chest in the ER prolonging her ER stay, however given the concern for PE, she was treated with therapeutic dose of lovenox. She agreed to get a CTA chest prior to her arrival to the inpatient unit. She denied chest pain throughout the course of her hospitalization. Denies any shortness of breath and is saturating well on nasal cannula. CTA chest reports acute PE extending from the bifurcation of the right pulmonary artery into the right upper lobe artery and its apical segmental branch. New acute to subacute moderate T10 compression fracture, likely related to insufficiency in the setting of osteoporosis. 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 I had a detailed discussion with the patient and family in regards to her advance directives. Pt wishes to be DNR, and states she will think about DNI. Pt also reports of having spinal MRI scheduled for tomorrow, will obtain those while she is hospitalized Past Med Surg Social Fam HX - Past Medical History Medical history: asthma, hypertension, thyroid disease, other Psychiatric history: no psych history - Past Surgical History Surgical History: thyroidectomy - Social History Smoking Status: Never smoker Smokeless Tobacco Status: No Alcohol use: none Drug use: none Internal Medicine - H&P: Meds Albuterol Sulfate [Proair Hfa] 2 puff IH Q4H 10/20/16 [History] Atenolol [Tenormin] 25 mg PO DAILY 10/20/16 [History] Diltiazem HCl [Tiazac] 120 mg PO DAILY 10/20/16 [History] Fluticasone/Salmeterol [Advair 500-50 Diskus] 1 puff IH Q12H 10/20/16 [History] Ipratropium [ATROVENT Inhaler] 2 puff IH QID 10/20/16 [History] Levothyroxine [Synthroid] 125 mcg PO DAILY 10/20/16 [History] Losartan/Hydrochlorothiazide [Hyzaar 100-25 Tablet] 1 each PO DAILY 10/20/16 [ History] Gabapentin [Neurontin] 100 mg PO TID 02/05/18 [History] predniSONE [PredniSONE] 5 mg PO DAILY 02/05/18 [History] Lidocaine Patch [Lidoderm 5% patch] 1 each TP DAILY #5 adh..patch 02/20/18 [Rx] Meloxicam [Mobic] 7.5 mg PO DAILY #7 tablet 02/20/18 [Rx] 3 Allergy/AdvReac Type Severity Reaction Status Date / Time codeine Allergy Hives Verified 12/29/17 11:24 All Systems PM: A 10-system review of systems was performed and is negative for pertinent findings except as documented above in the HPI. - Constitutional Constitutional: as per HPI, no anorexia, no chills, no excessive sweating, no fatigue, no falls, no lethargy, no malaise - EENT Eyes: no change in vision - Cardiovascular Cardiovascular ROS IM: no chest pain - Respiratory Respiratory: dyspnea, wheezing, no cough, no hemoptysis, no chest congestion - Constitutional Vitals: Temp Pulse Resp BP Pulse Ox 98.5 F 112 20 158/83 95 03/05/18 08:58 03/05/18 08:58 03/05/18 08:58 03/05/18 08:58 03/05/18 08:58 General appearance: Present: A&O X 3, no acute distress, obese - Head Head exam: Present: atraumatic, normocephalic - Eye Eye exam: Present: conjuntiva pink, sclera anicteric - Respiratory Respiratory exam: Present: wheezes (diffuse expiratory wheezing noted on b/l upper lobes). Absent: chest wall tenderness, respiratory distress - Cardiovascular Cardiovascular exam: Present: +S1, +S2, tachycardia - GI/Abdominal GI/Abdominal exam: Present: normal bowel sounds, soft, no peritoneal signs. Absent: distended, tenderness - Extremities Exam Extremities exam: Present: warm, radial pulses palpable and symmetrical. Absent : calf tenderness - Neurological Exam Neurological exam: Present: oriented X3 - Psychiatric Psychiatric exam: Present: normal affect, normal mood Internal Med - H&P Results - Labs CBC & Chem 7: 03/05/18 06:05 03/05/18 06:05 - Assessment and plan (1) Acute pulmonary embolism Current Visit: Yes Status: Acute Assessment and plan: CTA chest reports acute PE extending from the bifurcation of the right pulmonary artery into the right upper lobe artery and its apical segmental branch. Findings potentially related to right heart strain New acute to subacute moderate T10 compression fracture, likely related to insufficiency in the setting of osteoporosis. 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 Continue therapeutic dose of Lovenox f/u 2D echo tele monitoring O2 supplementation f/u cardiology evaluation hemodynamically stable at this time, will continue to closely monitor Qualifiers: Pulmonary embolism type: other Acute cor pulmonale presence: without acute cor pulmonale Qualified Code(s): I26.99 - Other pulmonary embolism without acute cor pulmonale (2) Hypertension Current Visit: Yes Status: Chronic Assessment and plan: BP within acceptable range continue home meds after verification Qualifiers: Hypertension type: essential hypertension Qualified Code(s): I10 - Essential (primary) hypertension (3) Hypokalemia Current Visit: Yes Status: Acute Assessment and plan: K supplemented in the ER continue to monitor electrolytes and replace as needed (4) Compression fracture of thoracic vertebra Current Visit: No Status: Chronic Assessment and plan: pt scheduled for MR L and T spine w/out contrast in am continue pain control Qualifiers: Encounter type: initial encounter Fracture type: closed Qualified Code(s) : S22.000A - Wedge compression fracture of unspecified thoracic vertebra, initial encounter for closed fracture (5) Peripheral neuropathy Current Visit: Yes Status: Chronic Assessment and plan: continue home meds Qualifiers: Peripheral neuropathy type: polyneuropathy, unspecified Qualified Code(s): G62.9 - Polyneuropathy, unspecified (6) Hypothyroidism Current Visit: Yes Status: Chronic Assessment and plan: continue levothyroxine Qualifiers: Hypothyroidism type: unspecified Qualified Code(s): E03.9 - Hypothyroidism , unspecified (7) Obesity (BMI 30-39.9) Current Visit: Yes Status: Chronic (8) DVT prophylaxis Current Visit: No Status: Acute Assessment and plan: lovenox sq - Time Spent With Patient Total time spent is greater than 50% in coordination of care (as documented) at patient's floor/unit and/or counseling patient:
[2018-03-05] MEDS ORDERED: Albuterol 2.5 MG/3 ML NEBULIZER IH PRN (09:37)
[2018-03-05 09:48] LABS: INR 1.2; Prothrombin Time 13.4 Seconds (9.4-12.1)
[2018-03-05] MEDS: predniSONE 5 MG TABLET PO SCH (10:15)
[2018-03-05] MEDS: Diltiazem CD (24hr) 120 MG CAPSULE PO SCH (10:15)
[2018-03-05] MEDS: Ipratropium/Albuterol Neb 3 ML IH SCH ×3 (10:35→21:33)
[2018-03-05] MEDS: Budesonide/Formoterol 160/4.5 MDI IH SCH ×2 (10:35→21:33)
--- NOTE | 2018-03-05 13:49 | Electrocardiograph Report ---
[place] [id number] Test Date: 2018-03-05 Pat Name: Simi Church Department: 103 Room: 3B54 Gender: F Boot Maker: STANLEY : 1930 Requested By: Osmani Diop Order Number: [id number] Reading MD: Bri Mclean Measurements Intervals [place] Rate: 108 P: 224 NV: 203 QRS: -28 QRSD: 140 T: 107 QT: 363 QTc: 427 Interpretive Statements SINUS TACHYCARDIA LEFT BUNDLE BRANCH BLOCK [120+ ms QRS DURATION, 80+ ms Q/S IN V1/V2, 85+ ms R IN I/aVL/V5/V6] Electronically Signed On 03-05-2018 13:47:46 EDT by Bri Mclean
[2018-03-05] MEDS ORDERED: *HR* LORazepam 2 MG/ML VIAL IVP PRN (14:05)
[2018-03-05] MEDS: *HR* HYDROmorphone 2 MG/ML SYRINGE IVP PRN ×2 (14:13→18:16)
--- NOTE | 2018-03-05 14:15 | Cardiology Consult Note ---
Date of Encounter: 03/05/18 Time of Encounter: 14:15 Assessment and Plan (1) Acute pulmonary embolism Current Visit: Yes Status: Acute Continue anticoagulation, check venous duplex to assess residual thrombus; I discussed A/R/B of IVC filter implantation with her. If significant thrombus burden likely will need IVC filter and may need it anyways if she is going to have spine surgery. No indication for catheter thrombolysis at this time. Echo pending to confirm RV strain on CT Qualifiers: Pulmonary embolism type: other Acute cor pulmonale presence: without acute cor pulmonale Qualified Code(s): I26.99 - Other pulmonary embolism without acute cor pulmonale (2) Edema Current Visit: Yes Status: Acute chronic, duplex ordered Qualifiers: Edema type: localized Qualified Code(s): R60.0 - Localized edema Discussion w patient/family: The assessment and plan as outlined above was discussed with the patient and/or family members who expressed understanding and agreement. All questions were answered. Thank you for involving us in the care of your patient. Please call with any questions. History of Present Illness Consult date: 03/05/18 Consult reason: PE / RV strain. Chief complaint: Dyspnea History of present illness: Ms. Church is a 87 year old female presents with month history of worsening dyspnea with associated back pain. She has history of spinal compression fractures sp kyphoplasty and initially her dyspnea was attributed to response to back pain from her fractures. This ED visit she had elevated D Dimer and subsequent CT scan with findings of BL PE. She was noted to have RV strain on CT. She denies worsening LE edema and chronically R>L edema. She also has neuropathy. Her dyspnea had progressed to the point of severity where she had to sit up to feel minimally comfortable. Past Med Surg Social Fam HX - Past Medical History Medical history: asthma, hypertension, thyroid disease, other Psychiatric history: no psych history - Past Surgical History Surgical History: thyroidectomy - Social History Smoking Status: Never smoker Smokeless Tobacco Status: No Alcohol use: none Drug use: none - Family History Mother Adopted: Conner: Reyna Youngblood Age: 80 Family Member Ethnicity: Non- Living Status: Hx Family Cardiac Disorders: Yes Medications and Allergies Albuterol Sulfate [Proair Hfa] 2 puff IH Q4H 10/20/16 [History] Atenolol [Tenormin] 25 mg PO DAILY 10/20/16 [History] Diltiazem HCl [Tiazac] 120 mg PO DAILY 10/20/16 [History] Fluticasone/Salmeterol [Advair 500-50 Diskus] 1 puff IH Q12H 10/20/16 [History] Ipratropium [ATROVENT Inhaler] 2 puff IH QID 10/20/16 [History] Levothyroxine [Synthroid] 125 mcg PO DAILY 10/20/16 [History] Losartan/Hydrochlorothiazide [Hyzaar 100-25 Tablet] 1 each PO DAILY 10/20/16 [ History] Gabapentin [Neurontin] 100 mg PO TID 02/05/18 [History] predniSONE [PredniSONE] 5 mg PO DAILY 02/05/18 [History] Lidocaine Patch [Lidoderm 5% patch] 1 each TP DAILY #5 adh..patch 02/20/18 [Rx] Meloxicam [Mobic] 7.5 mg PO DAILY #7 tablet 02/20/18 [Rx] 3 Allergy/AdvReac Type Severity Reaction Status Date / Time codeine Allergy Hives Verified 12/29/17 11:24 All Systems Review: The remainder of the systems were reviewed and are negative - Constitutional Constitutional: no chills, no fever(s) - EENT Eyes: no blurred vision, no loss of vision Nose, mouth and throat: no bleeding gums, no mouth pain - Cardiovascular Cardiovascular: dyspnea at rest, dyspnea on exertion - Respiratory Respiratory: no hemoptysis, no wheezing - Gastrointestinal Gastrointestinal: no hematemesis - Genitourinary Genitourinary: no hematuria, no nocturia - Musculoskeletal Musculoskeletal: arthralgias, back pain - Integumentary Integumentary: no rash, no unusual bruising - Neurological Neurological: no loss of vision, no syncope - Psychiatric Psychiatric: no hallucinations, no panic attacks Physical Examination Vital Signs, Last 4 Hours Temp Pulse Resp BP Pulse Ox 03/05/18 12:19 98.9 F 97 18 134/83 94 General: Conversant HEENT: Atraumatic Neck: No JVD Cardiac: Reg Rate and Rhythm Lungs: Normal Breath Sounds Neuro: Alert and responsive Skin: No rashes noted on visualized skin Musculoskeletal: No Chest Wall Tenderness Extremities: Other (BL edema R > L) Results 03/05/18 06:05 03/05/18 06:05 Lab Results 03/05/18 09:02 INR 1.2 D-Dimer 3132 H - EKG Interpretation EKG results cardiology: personally reviewed, sinus rhythm, left bundle branch block Consult Discharge Plan - Plan Referrals: Dilia Montoya MD [Primary Care Provider] -
[2018-03-05] MEDS: Gabapentin 100 MG CAPSULE PO SCH ×2 (14:54→21:47)
[2018-03-05] MEDS: *HR* Enoxaparin 80 MG/0.8 ML SYRINGE SQ SCH (17:01)
[2018-03-05] MEDS ORDERED: Perflutren Lipid Microsphere 2 ML VIAL ONE (20:34)
[2018-03-05] MEDS: *HR* HYDROcodone/Acet 5/325 mg TABLET PO PRN (21:46)
[2018-03-06] MEDS: Ipratropium/Albuterol Neb 3 ML IH SCH ×4 (03:43→21:48)
[2018-03-06] MEDS: *HR* Enoxaparin 80 MG/0.8 ML SYRINGE SQ SCH ×2 (06:13→17:30)
[2018-03-06 06:28] LABS: Basophils % 0.3 %; Eosinophils % 0.1 %; Hematocrit 29.9 % (35.3-44.9); Immature Granulocytes % 2.7 % (0-4); Lymphocytes # 1.4 K/mcL (0.6-4.6); Lymphocytes % 12.2 %; Mean Corpuscular HGB Conc 32.8 g/dL (31.6-35.5); Mean Corpuscular Hemoglobin 32.6 pg (28.0-33.3); Mean Corpuscular Volume 99.3 fL (83.0-100.0); Mean Platelet Volume 10.6 fL (9.4-12.4); Monocytes # 0.8 K/mcL (0.0-1.3); Platelet Count 230 K/mcL (140-400); Red Blood Count 3.01 M/mcL (3.82-4.97); Red Cell Distribution Width 13.2 % (11.5-14.5); Segmented Neutrophils % 77.7 %
[2018-03-06 06:29] LABS: Hemoglobin 9.8 g/dL (11.5-15.4)
[2018-03-06 06:52] LABS: BUN/Creatinine Ratio 39 (6-26); Blood Urea Nitrogen 26 mg/dL (8-23); Calcium 9.1 mg/dL (8.6-10.3); Carbon Dioxide 26 mEq/L (23-29); Chloride 102 mEq/L (98-107); Glucose 242 mg/dL (70-105); Magnesium 1.9 mg/dL (1.6-2.6); Osmolality,Calculated 295 (280-300); Phosphorous 3.3 mg/dL (2.7-4.5); Potassium 3.8 mEq/L (3.5-5.1); Sodium 136 mEq/L (136-145); eGFR For African Americans > 60 (> 60); eGFR For Non-African Americans > 60 (> 60)
[2018-03-06] MEDS: Budesonide/Formoterol 160/4.5 MDI IH SCH ×2 (07:41→21:48)
--- NOTE | 2018-03-06 10:28 | Spine Progress Note ---
Date of Encounter: 03/05/18 Time of Encounter: 14:20 Subjective Principal diagnosis: Osteopenia, vertebral compression fractures,history of kyphoplasty Interval history: Miss Church is a 87-year-old woman well known to the practice is had previous thoracic kyphoplasty's for vertebral compression fractures. She did well postoperatively but had recent exacerbation of significant back pain. Subsequent workup revealed new acute compression fracture below her previous kyphoplasties. She is complaining of significant thoracic back pain. Of note she has been recently diagnosed with pulmonary embolism. We are asked to see regarding treatment of her compression fracture. On examination she is afebrile vital signs are stable. She has tenderness to palpation over the midthoracic region. She is neurovascularly intact with regard to her bilateral upper and lower extremities. CT scan of the chest reveals previous kyphoplasty is at T7 and T8. There is a new acute vertebral compression fracture at T9 Impression: 1) Osteopenia 2) history of kyphoplasty T7-T8 3) acute vertebral compression fracture T9 Plan: She will need osteo-protective agents and supplementation per her family M.D. postoperatively. Since she did well with her previous kyphoplasty have offered her an additional kyphoplasty T9. Risk benefits possible complications were discussed and the patient would like to proceed. However, in light of her recent pulmonary embolism she will need medical optimization and stabilization prior to any surgical procedure. Once clear and optimized and will add her onto the schedule for a kyphoplasty. Objective Vital signs: Vital Signs Temp Pulse Resp BP Pulse Ox 03/06/18 07:58 98.7 F 99 20 161/66 96 03/06/18 07:44 16 94 03/06/18 03:45 16 94 03/06/18 03:00 98.0 F 74 18 129/65 94 03/05/18 23:00 98.0 F 87 14 156/66 94 03/05/18 21:33 16 96 03/05/18 19:00 98.2 F 75 18 148/70 92 03/05/18 16:04 16 94 03/05/18 14:59 97.6 F 75 16 107/69 93 Intake and Output 03/05/18 03/06/18 03/06/18 23:59 07:59 15:59 Other: Weight 79.1 kg Patient Weight 03/06/18 23:59 Weight 79.1 kg - Labs CBC & BMP: 03/06/18 05:31 05/22/18 05:31 Labs: Abnormal lab results WBC 11.6 K/mcL (4.3-11.1) H 03/06/18 05:31 RBC 3.01 M/mcL (3.82-4.97) L 03/06/18 05:31 Hgb 9.8 g/dL (11.5-15.4) L D 03/06/18 05:31 Hct 29.9 % (35.3-44.9) L 03/06/18 05:31 Neutrophils # 9.0 K/mcL (1.6-8.9) H 03/06/18 05:31 PT 13.4 Seconds (9.4-12.1) H 03/05/18 09:02 D-Dimer 3132 ng/mLFEU (0-500) H 03/05/18 09:02 BUN 26 mg/dL (8-23) H 03/06/18 05:31 BUN/Creatinine Ratio 39 (6-26) H 03/06/18 05:31 Glucose 242 mg/dL (70-105) H 03/06/18 05:31 Consult Discharge Plan - Plan Referrals: Dilia Montoya MD [Primary Care Provider] -
[2018-03-06] MEDS: *HR* HYDROmorphone 2 MG/ML SYRINGE IVP PRN ×2 (11:04→18:39)
[2018-03-06] MEDS: Diltiazem CD (24hr) 120 MG CAPSULE PO SCH (11:07)
[2018-03-06] MEDS: predniSONE 5 MG TABLET PO SCH (11:07)
[2018-03-06] MEDS: Losartan/HCTZ 50-12.5 TABLET PO SCH (11:07)
[2018-03-06] MEDS: Gabapentin 100 MG CAPSULE PO SCH ×3 (11:07→21:12)
--- NOTE | 2018-03-06 12:54 | Cardiology Progress Note ---
Date of Encounter: 03/06/18 Time of Encounter: 12:00 Assessment and Plan (1) Acute pulmonary embolism Current Visit: Yes Status: Acute Continue anticoagulation, check venous duplex to assess residual thrombus; I discussed A/R/B of IVC filter implantation with her. If significant thrombus burden likely will need IVC filter and may need it anyways if she is going to have spine surgery. No indication for catheter thrombolysis at this time. TTE 03/05/18: LVEF 60%, mild LVDD, mild MR, normal RV structure and function, normal wall motion. No evidence of RV strain on echo. Continue AC with lovenox, will discuss with Dr. Morrow regarding possible IVC filter. Qualifiers: Pulmonary embolism type: other Acute cor pulmonale presence: without acute cor pulmonale Qualified Code(s): I26.99 - Other pulmonary embolism without acute cor pulmonale (2) Edema Current Visit: Yes Status: Acute Prelim doppler exam: Bilateral lower extremity venous doppler done, patient is positive for SVT in LSV (lesser saphenous vein), and negative for DVT. On therapeutic lovenox for acute PE Qualifiers: Edema type: localized Qualified Code(s): R60.0 - Localized edema Discussion w patient/family: The assessment and plan as outlined above was discussed with the patient and/or family members who expressed understanding and agreement. All questions were answered. Thank you for involving us in the care of your patient. Please call with any questions. The patient will be discussed and reviewed with Dr. oMrrow; changes to be made accordingly. Subjective Principal diagnosis: Osteopenia, vertebral compression fractures,history of kyphoplasty Interval history: Seen and examined. No chest pain reported. Dyspnea unchanged, has frequent cough. Objective Vital Signs, Last 4 Hours Temp Pulse Resp BP Pulse Ox 03/06/18 12:10 98.3 F 92 18 126/78 90 General: Conversant, No Apparent Distress HEENT: Atraumatic, Normocephaly, Mucus Membranes Moist Cardiac: Reg Rate and Rhythm, Normal S1 and S2 Lungs: Normal Breath Sounds Neuro: Alert and responsive Abdomen: Soft Skin: No rashes noted on visualized skin Musculoskeletal: No Chest Wall Tenderness Extremities: No Edema, Normal Pulses Results 03/06/18 05:31 03/06/18 05:31 Lab Results 03/06/18 03/06/18 05:31 05:31 WBC 11.6 H Hgb 9.8 L D Hct 29.9 L Plt Count 230 Sodium 136 Potassium 3.8 Chloride 102 Carbon Dioxide 26 BUN 26 H Creatinine 0.66 Glucose 242 H Calcium 9.1 Magnesium 1.9 Active Medications Hydrocodone Bitart/Acetaminophen ([place] 5-325 Mg) 1 tab PO Q4HR PRN PRN Reason: Moderate Pain Stop: 09/04/18 09:24 Last Admin: 03/05/18 21:46 Dose: 1 tab Albuterol Sulfate (Proventil Neb) 2.5 mg IH [id number] PRN; Protocol PRN Reason: Shortness Of Breath/Wheezing Stop: 09/04/18 09:38 Albuterol/Ipratropium (Duoneb) 3 ml IH F4ISIAL ANA LAURA Stop: 09/04/18 10:01 Last Admin: 03/06/18 07:43 Dose: 3 ml Atenolol (Tenormin) 25 mg PO DAILY ANA LAURA Stop: 09/04/18 10:01 Last Admin: 03/06/18 11:07 Dose: 25 mg Budesonide/Formoterol Fumarate (Symbicort) 2 puff IH BIDRESP ANA LAURA Stop: 09/04/18 10:01 Last Admin: 03/06/18 07:41 Dose: 2 puff Diltiazem HCl (Cardizem Cd) 120 mg PO DAILY ANA LAURA Stop: 09/04/18 10:01 Last Admin: 03/06/18 11:07 Dose: 120 mg Enoxaparin Sodium (Lovenox) 80 mg 1 mg/kg (80 mg) SQ Q12HR ANA LAURA PRN Reason: Protocol Stop: 09/04/18 18:01 Last Admin: 03/06/18 06:13 Dose: 80 mg Gabapentin (Neurontin) 100 mg PO TID ANA LAURA Stop: 09/04/18 15:01 Last Admin: 03/06/18 11:07 Dose: 100 mg HCTZ/Losartan Potassium (Hyzaar 50/12.5) 2 each PO DAILY ANA LAUAR Stop: 09/05/18 09:01 Last Admin: 03/06/18 11:07 Dose: 2 each Hydromorphone HCl (Dilaudid) 0.5 mg IVP Q4HR PRN; Protocol PRN Reason: Severe Pain Stop: 09/04/18 09:23 Last Admin: 03/06/18 11:04 Dose: 0.5 mg Levothyroxine Sodium (Synthroid) 125 mcg PO 0630 [facility] Stop: 09/05/18 06:31 Last Admin: 03/06/18 06:13 Dose: 125 mcg Lidocaine HCl (Lidoderm 5% Patch) 1 each TP DAILY [facility] Stop: 09/05/18 09:01 Last Admin: 03/06/18 11:07 Dose: Not Given Naloxone HCl (Narcan) 0.4 mg IVP Q2MIN PRN PRN Reason: SEE COMMENTS Stop: 09/04/18 09:19 Prednisone (Prednisone) 5 mg PO DAILY [facility] Stop: 09/04/18 10:01 Last Admin: 03/06/18 11:07 Dose: 5 mg - Imaging and Cardiology Echo: report reviewed Other Results: 12 hour tele: avg HR=83 SR. Occasional PVC. - EKG Interpretation EKG results cardiology: personally reviewed Consult Discharge Plan - Plan Referrals: Dilia Montoya MD [Primary Care Provider] -
[2018-03-06] MEDS: *HR* HYDROcodone/Acet 5/325 mg TABLET PO PRN ×2 (17:30→21:12)
--- NOTE | 2018-03-06 19:26 | Internal Med Progress Note ---
Date of Encounter: 03/06/18 Time of Encounter: 11:40 - Assessment and plan (1) DVT prophylaxis Current Visit: Yes Status: Acute Assessment and plan: Lovenox subcutaneous daily. 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 Lumbar spine MRI-no lumbar fracture detected. Continue pain control. Patient was evaluated by Dr. Smith today. Patient will need to complete treatment and stabilization of PE prior to kyphoplasty. Most likely, patient will be discharged and have treatment and kyphoplasty outpatient. Qualifiers: Encounter type: initial encounter Fracture type: closed Qualified Code(s) : S22.000A - Wedge compression fracture of unspecified thoracic vertebra, initial encounter for closed fracture (3) Acute pulmonary embolism Current Visit: Yes Status: Acute Assessment and plan: Patient with elevated d-dimer, CTA chest shows PE extending from the bifurcation of the right pulmonary artery into the right upper lobe artery and segmental branch. Findings potentially related to right heart strain. Echocardiogram showed an LVEF of 60% with mild LV DD, atypical septal motion of unclear significance, mild MR. No evidence of RV strain on echo. 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 Continue Lovenox Continue telemetry Oxygen as needed to maintain sats greater than 92% Cardiology consultation- she has been assessed, we will discuss possible IVC filter. Qualifiers: Pulmonary embolism type: other Acute cor pulmonale presence: without acute cor pulmonale Qualified Code(s): I26.99 - Other pulmonary embolism without acute cor pulmonale (4) Hypertension Current Visit: Yes Status: Chronic Assessment and plan: Chronic. Well controlled. Continue home medications. Qualifiers: Hypertension type: essential hypertension Qualified Code(s): I10 - Essential (primary) hypertension (5) Hypokalemia Current Visit: Yes Status: Acute Assessment and plan: Resolved. Continue to monitor. (6) Obesity (BMI 30-39.9) Current Visit: Yes Status: Chronic Assessment and plan: Chronic. Encourage lifestyle modifications. (7) Peripheral neuropathy Current Visit: Yes Status: Chronic Assessment and plan: Patient reports chronic bilateral lower extremity pain from peripheral neuropathy. Continue home medications, specifically gabapentin 100 mg 3 times daily. Qualifiers: Peripheral neuropathy type: polyneuropathy, unspecified Qualified Code(s): G62.9 - Polyneuropathy, unspecified (8) Hypothyroidism Current Visit: Yes Status: Chronic Assessment and plan: Chronic. Continue home dose of levothyroxine. Qualifiers: Hypothyroidism type: unspecified Qualified Code(s): E03.9 - Hypothyroidism , unspecified - Time Spent With Patient Total time spent is greater than 50% in coordination of care (as documented) at patient's floor/unit and/or counseling patient: less than 15 minutes - Subjective Interval history: Patient was seen and assessed the bedside at 11:40 AM. Daughter at bedside. Both are very pleasant. Patient is alert, awake, oriented. All questions were answered. Patient denies any knowledge of anemia, but does state that she gets B12 injections, next one due next week. She reports that pain is a little bit better in her chest and back. Reports continued mild shortness of breath. She denies headache or blurred vision, no abdominal pain, nausea, vomiting, diarrhea. She denies confusion. She reports that pain management is adequate at this time. - Constitutional Vitals: Temp Pulse Resp BP Pulse Ox 99.1 F 94 16 149/73 96 03/06/18 18:29 03/06/18 18:29 03/06/18 18:29 03/06/18 18:29 03/06/18 18:29 General appearance: Present: cooperative, A&O X 3, pleasant, no acute distress, obese, answers questions appropriately - Head Head exam: Present: atraumatic, normal inspection, normocephalic - Eye Eye exam: Present: normal appearance, conjuntiva pink, sclera anicteric - Neck Neck exam general surgery: Present: supple, trachea midline. Absent: lymphadenopathy, tenderness - Respiratory Respiratory exam: Present: CTAB. Absent: accessory muscle use, chest wall tenderness, rales, respiratory distress, rhonchi, wheezes - Cardiovascular Cardiovascular exam: Present: RRR, +S1, +S2. Absent: diastolic murmur, gallop, rubs, systolic murmur - GI/Abdominal GI/Abdominal exam: Present: normal bowel sounds, soft. Absent: distended, hepatomegaly, tenderness - Extremities Exam Extremities exam: Present: normal capillary refill, normal inspection, warm, radial pulses palpable and symmetrical. Absent: calf tenderness, cyanotic, pedal edema, tenderness - Neurological Exam Neurological exam: Present: alert, oriented X3, no focal deficits. Absent: altered, facial droop, speech deficit - Skin Skin exam: Present: dry, intact, normal color, warm. Absent: rash Internal Medicine: Result - Labs CBC & Chem 7: 03/06/18 05:31 03/06/18 05:31 Labs: Short CBC 03/06/18 Range/Units 05:31 WBC 11.6 H (4.3-11.1) K/mcL Hgb 9.8 L D (11.5-15.4) g/dL Hct 29.9 L (35.3-44.9) % Plt Count 230 (140-400) K/mcL Neutrophils # 9.0 H (1.6-8.9) K/mcL BMP 03/06/18 05:31 Sodium 136 Potassium 3.8 Chloride 102 Carbon Dioxide 26 BUN 26 H Creatinine 0.66 Glucose 242 H Calcium 9.1 - ABG Interpretation ABG results: PT/INR, D-dimer PT 13.4 Seconds (9.4-12.1) H 03/05/18 09:02 D-Dimer 3132 ng/mLFEU (0-500) H 03/05/18 09:02 Consult Discharge Plan - Plan Referrals: Dilia Montoya MD [Primary Care Provider] -
[2018-03-07] MEDS: Ipratropium/Albuterol Neb 3 ML IH SCH ×3 (03:24→16:09)
[2018-03-07] MEDS: *HR* Enoxaparin 80 MG/0.8 ML SYRINGE SQ SCH (06:25)
[2018-03-07 06:27] LABS: Basophils % 0.2 %; Eosinophils % 0.3 %; Hematocrit 30.2 % (35.3-44.9); Hemoglobin 10.1 g/dL (11.5-15.4); Immature Granulocytes % 1.7 % (0-4); Lymphocytes # 1.3 K/mcL (0.6-4.6); Lymphocytes % 11.5 %; Mean Corpuscular HGB Conc 33.4 g/dL (31.6-35.5); Mean Corpuscular Hemoglobin 33.6 pg (28.0-33.3); Mean Corpuscular Volume 100.3 fL (83.0-100.0); Mean Platelet Volume 9.6 fL (9.4-12.4); Monocytes # 1.3 K/mcL (0.0-1.3); Monocytes % 11.1 %; Neutrophils # 8.6 K/mcL (1.6-8.9); Platelet Count 281 K/mcL (140-400); Red Blood Count 3.01 M/mcL (3.82-4.97); Red Cell Distribution Width 13.3 % (11.5-14.5); Segmented Neutrophils % 75.2 %
[2018-03-07 06:47] LABS: Calcium 9.2 mg/dL (8.6-10.3); Potassium 4.2 mEq/L (3.5-5.1)
[2018-03-07] MEDS: Losartan/HCTZ 50-12.5 TABLET PO SCH (09:13)
[2018-03-07] MEDS: *HR* HYDROcodone/Acet 5/325 mg TABLET PO PRN ×2 (09:13→16:56)
[2018-03-07] MEDS: Diltiazem CD (24hr) 120 MG CAPSULE PO SCH (09:13)
[2018-03-07] MEDS: predniSONE 5 MG TABLET PO SCH (09:13)
[2018-03-07] MEDS: Gabapentin 100 MG CAPSULE PO SCH ×2 (09:13→16:56)
[2018-03-07 10:29] LABS: % Iron Saturation 26 % (15-50); Ferritin 507 ng/ml (10-120); Iron 66 mcg/dL (50-170); Transferrin 182 mg/dL (203-362)
[2018-03-07 10:31] LABS: Folate 12.7 ng/mL (3.0-16.0)
[2018-03-07] MEDS: Budesonide/Formoterol 160/4.5 MDI IH SCH (11:57)
[2018-03-07] MEDS: *HR* HYDROmorphone 2 MG/ML SYRINGE IVP PRN (12:25)
[2018-03-07] MEDS ORDERED: OXYCODONE Oral CONC 10 MG/0.5 ML ORAL.SYG SL PRN (15:00)
[2018-03-07 15:38] VITALS: BP 136/77
--- NOTE | 2018-03-07 16:23 | Discharge Summary ---
- NOTES TO OUTPATIENT PROVIDER Notes to Outpatient Provider: Pt was admitted and treated for PE. Pt also has new thoracic compression fractures. Pt has been discharged on Eliquis 10mg po BID x 7 days, then 5mg po BID. She will need to follow up with Dr. Smith for kyphoplasty for new fracture. Orders not resulted at time of discharge: Pending orders 03/07/18 08:59 Stool guiac [Occult Blood,Stool] [BF] Routine Urinalysis Reflex Cult & Micro [URIN] Stat 03/08/18 04:00 Basic Metabolic Panel AM 0400 Complete Blood Count [HEME] AM 0400 03/09/18 04:00 Basic Metabolic Panel AM 0400 Complete Blood Count [HEME] AM 040 Date of Encounter: 03/07/18 Time of Encounter: 09:35 - Discharge Diagnosis (1) Compression fracture of thoracic vertebra Priority: Secondary Status: Chronic Assessment and Plan: Thoracic spine MRI- there is an acute compression fracture of T10 resulting in 25% loss of vertebral body height, chronic superior endplate fracture of T12. Lumbar spine MRI-no lumbar fracture detected. Continue pain control. Pt asking for something stronger for home. Pt will need to follow up with Dr. Smith when she is stable after PE. Qualifiers: Encounter type: initial encounter Fracture type: closed Qualified Code(s) : S22.000A - Wedge compression fracture of unspecified thoracic vertebra, initial encounter for closed fracture (2) Acute pulmonary embolism Priority: Primary Status: Acute Assessment and Plan: Pt is being transitioned to Eliquis 10mg po BID then 5mg po BID. NO evidence of RV strain on echo. Pt denies chest pain. Qualifiers: Pulmonary embolism type: other Acute cor pulmonale presence: without acute cor pulmonale Qualified Code(s): I26.99 - Other pulmonary embolism without acute cor pulmonale (3) Hypertension Priority: Secondary Status: Chronic Assessment and Plan: Chronic. STable in the hospital setting. Continue home medications. Qualifiers: Hypertension type: essential hypertension Qualified Code(s): I10 - Essential (primary) hypertension (4) Hypokalemia Priority: Secondary Status: Acute Assessment and Plan: Resolved. Continue to monitor. (5) Obesity (BMI 30-39.9) Priority: Secondary Status: Chronic Assessment and Plan: Chronic. lifestyle modifications. (6) Peripheral neuropathy Priority: Secondary Status: Chronic Assessment and Plan: Patient reports chronic bilateral lower extremity pain from peripheral neuropathy. Continue Gabapentin daily. Qualifiers: Peripheral neuropathy type: polyneuropathy, unspecified Qualified Code(s): G62.9 - Polyneuropathy, unspecified (7) Hypothyroidism Priority: Secondary Status: Chronic Assessment and Plan: Chronic. Continue home medications. Qualifiers: Hypothyroidism type: unspecified Qualified Code(s): E03.9 - Hypothyroidism , unspecified (8) DVT prophylaxis Priority: Secondary Status: Acute Assessment and Plan: Lovenox subcutaneous daily, transitioning to Eliquis. Hospital course: Ms. Church is a 87 year old female with past medical history of hypertension, peripheral neuropathy, chronic back pain status post kyphoplasty, hypothyroidism. She presented to emergency department with acute onset of shortness of breath, inability to lie supine due to severe pain. Patient was tachycardic and hypoxic on arrival placed on oxygen, given pain medication. Chest CTA is positive for PE and patient was started on therapeutic dose of Lovenox. Patient's PE extending to the bifurcation of the right pulmonary artery and the right upper lobe artery is apical segmental branch. Also noted patient has acute to subacute moderate T10 compression fracture, likely related to insufficiency in the setting of osteoporosis. 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 Patient has been evaluated by Dr. Smith for kyphoplasty. She is not a candidate at this time. She is also been evaluated by cardiology, she does not need an IVC filter due to anticoagulation. Patient will be started on 10 mg by mouth twice daily for 7 days then 5 mg by mouth twice daily after. Patient will need to follow with primary care for continued pain medication for back pain. Also, patient will need to follow up with Dr. Smith for evaluation for surgery. Vital signs are stable at time of admission, labs are stable and within normal limits. Patient is appropriate for discharge. Discharge discussed with: patient, family - Time Spent with Patient Total time spent providing and/or coordinating discharge services: Less than 30 minutes - Discharge Medications Prescriptions: OxyCODONE/APAP 5/325 [Percocet 5/325 MG] 1 each PO Q6HR PRN 3 Days #12 tablet PRN Reason: Pain Apixaban [Eliquis] 10 mg PO BID #28 tablet Apixaban [Eliquis] 5 mg PO BID #60 tab.ds.pk Lidocaine Patch [Lidoderm 5% patch] 1 each TP DAILY #14 adh..patch Home Medications: Albuterol Sulfate [Proair Hfa] 2 puff IH Q4H 10/20/16 [History] Atenolol [Tenormin] 25 mg PO DAILY 10/20/16 [History] Diltiazem HCl [Tiazac] 120 mg PO DAILY 10/20/16 [History] Fluticasone/Salmeterol [Advair 500-50 Diskus] 1 puff IH Q12H 10/20/16 [History] Ipratropium [ATROVENT Inhaler] 2 puff IH QID 10/20/16 [History] Levothyroxine [Synthroid] 125 mcg PO DAILY 10/20/16 [History] Losartan/Hydrochlorothiazide [Hyzaar 100-25 Tablet] 1 each PO DAILY 10/20/16 [ History] Gabapentin [Neurontin] 100 mg PO TID 02/05/18 [History] predniSONE [PredniSONE] 5 mg PO DAILY 02/05/18 [History] Meloxicam [Mobic] 7.5 mg PO DAILY #7 tablet 02/20/18 [Rx] Apixaban [Eliquis] 5 mg PO BID #60 tab.ds.pk 03/07/18 [Rx] Apixaban [Eliquis] 10 mg PO BID #28 tablet 03/07/18 [Rx] Ipratropium/Albuterol Neb [Duoneb] 3 ml IH [id number] inhsol 03/07/18 [Rx] Lidocaine Patch [Lidoderm 5% patch] 1 each TP DAILY #14 adh..patch 03/07/18 [Rx] OxyCODONE/APAP 5/325 [Percocet 5/325 MG] 1 each PO Q6HR PRN 3 Days #12 tablet [Rx] Allergies/Adverse Reactions: 3 Allergy/AdvReac Type Severity Reaction Status Date / Time codeine Allergy Hives Verified 12/29/17 11:24 Date of admission: 03/05/18 14:52 Primary care physician: Dilia Montoya, Discharging clinician: Katey Benz Anticipated date of discharge: 03/07/18 - Constitutional Vitals: Temp Pulse Resp BP Pulse Ox 98.7 F 79 14 136/77 96 03/07/18 15:37 03/07/18 15:37 03/07/18 16:10 03/07/18 15:37 03/07/18 16:10 General appearance: Present: cooperative, A&O X 3, pleasant, no acute distress, obese, answers questions appropriately - Head Head exam: Present: atraumatic, normal inspection, normocephalic - Eye Eye exam: Present: normal appearance, conjuntiva pink, sclera anicteric - Neck Neck exam general surgery: Present: supple, trachea midline. Absent: lymphadenopathy, tenderness - Respiratory Respiratory exam: Present: CTAB. Absent: accessory muscle use, rales, rhonchi, wheezes - Cardiovascular Cardiovascular exam: Present: RRR, +S1, +S2. Absent: diastolic murmur, gallop, rubs, systolic murmur - GI/Abdominal GI/Abdominal exam: Present: normal bowel sounds, soft. Absent: distended, tenderness - Extremities Exam Extremities exam: Present: normal capillary refill, warm, radial pulses palpable and symmetrical. Absent: calf tenderness, cyanotic, pedal edema, tenderness - Neurological Exam Neurological exam: Present: alert, oriented X3, no focal deficits. Absent: facial droop, speech deficit - Skin Skin exam: Present: dry, intact, normal color, warm. Absent: rash - Patient Status Disposition: Home, Self-Care Condition: Good Functional capacity at discharge: independent ambulation Overall status at discharge: patient is progressing back to baseline - Discharge Instructions Follow Up With: Dilia Montoya MD [Primary Care Provider] - Additional Instructions: Please follow-up with your primary care provider in the next 7 days for a recheck. Please return to the emergency department as needed for any other problems or concerns, or if your symptoms return or worsen. Take your medications exactly as directed. Return to your normal activities as tolerated. Return to your normal diet as tolerated. Follow-up with Dr. Smith for refills on pain medication, and to schedule surgery. - Diet and Activity Activity: increase activity as tolerated Diet: advance to your usual diet
[2018-03-07 17:00] LABS: Bilirubin,Urine Negative (Negative); Blood,Urine Negative (Negative); Clarity,Urine Clear (Clear); Color,Urine Yellow (Yellow); Glucose,Urine (UA) Normal (Normal); Ketones,Urine Negative (Negative); Leukocyte Esterase,Urine Small (Negative); Nitrite,Urine Negative (Negative); PH,Urine 6.5 pH Units (5.0-8.0); Protein,Urine Negative (Neg-Trace); Specific Gravity,Urine 1.017 (1.010-1.025); Urobilinogen,Urine Normal (Normal)
[2018-03-07 17:02] LABS: Bacteria,Urine None Seen per hpf (None-Few); Hyaline Casts,Urine None Seen per lpf (None-Few); RBC,Urine 0-3 per hpf (0-3); Squamous Epithelial Cell,Urine Many per lpf (None-Few)
[2018-03-08] MEDS ORDERED: *HR* Enoxaparin 80 MG/0.8 ML SYRINGE SQ SCH (09:00)
--- NOTE | 2018-03-12 17:03 | Physician Discharge Referral ---
Home Health/Hosp Referral Info Transfer to: Home Health Provider in Charge Post Discharge: PCP - Diagnosis (1) Compression fracture of thoracic vertebra Priority: Primary Status: Chronic (2) Acute pulmonary embolism Priority: Secondary Status: Acute (3) Hypertension Priority: Secondary Status: Chronic (4) Hypokalemia Priority: Secondary Status: Acute (5) Obesity (BMI 30-39.9) Priority: Secondary Status: Chronic (6) Peripheral neuropathy Priority: Secondary Status: Chronic (7) Hypothyroidism Priority: Secondary Status: Chronic (8) DVT prophylaxis Priority: Secondary Status: Acute - Respiratory Orders Smoking Cessation: Smoking cessation has been advised. For more information, call the [place] Tobacco Quit Line at 6-959-ZDUQ-NOW. - Diet/Nutrition Diet/Nutrition Orders: Regular - Activity Activity Orders: Up ad kaylee, Chair - Services Needed Following services are medically necessary services: Nursing, Home Health Aide, Physical Therapy, Occupational Therapy - Transfer Medications Prescriptions: OxyCODONE/APAP 5/325 [Percocet 5/325 MG] 1 each PO Q6HR PRN 3 Days #12 tablet PRN Reason: Pain Apixaban [Eliquis] 10 mg PO BID #28 tablet Apixaban [Eliquis] 5 mg PO BID #60 tab.ds.pk Lidocaine Patch [Lidoderm 5% patch] 1 each TP DAILY #14 adh..patch Home Medications: Albuterol Sulfate [Proair Hfa] 2 puff IH Q4H 10/20/16 [History] Atenolol [Tenormin] 25 mg PO DAILY 10/20/16 [History] Diltiazem HCl [Tiazac] 120 mg PO DAILY 10/20/16 [History] Fluticasone/Salmeterol [Advair 500-50 Diskus] 1 puff IH Q12H 10/20/16 [History] Ipratropium [ATROVENT Inhaler] 2 puff IH QID 10/20/16 [History] Levothyroxine [Synthroid] 125 mcg PO DAILY 10/20/16 [History] Losartan/Hydrochlorothiazide [Hyzaar 100-25 Tablet] 1 each PO DAILY 10/20/16 [ History] Gabapentin [Neurontin] 100 mg PO TID 02/05/18 [History] predniSONE [PredniSONE] 5 mg PO DAILY 02/05/18 [History] Meloxicam [Mobic] 7.5 mg PO DAILY #7 tablet 02/20/18 [Rx] Apixaban [Eliquis] 5 mg PO BID #60 tab.ds.pk 03/07/18 [Rx] Apixaban [Eliquis] 10 mg PO BID #28 tablet 03/07/18 [Rx] Ipratropium/Albuterol Neb [Duoneb] 3 ml IH [id number] inhsol 03/07/18 [Rx] Lidocaine Patch [Lidoderm 5% patch] 1 each TP DAILY #14 adh..patch 03/07/18 [Rx] OxyCODONE/APAP 5/325 [Percocet 5/325 MG] 1 each PO Q6HR PRN 3 Days #12 tablet [Rx] Allergies/Adverse Reactions: 3 Allergy/AdvReac Type Severity Reaction Status Date / Time codeine Allergy Hives Verified 12/29/17 11:24 Certification: Further, I certify that my clinical findings support that this patient is homebound (i.e. absences from home require considerable and taxing effort and are for medical reasons or confucianist services or infrequently or short duration when for other reasons) because: Homebound Reason: Patient requires assistance of a person or device to safely leave home, Leaving home requires considerable and taxing effort due to condition Attestation: My signature below is to certify that this patient is under my care and that I, or nurse practitioner, or a physician's technical assistant working with me, has a face-to -face encounter with this patient.
== END 2018-03-07 18:45 | disposition home or self-care (01) | DRG 176 ==
LOC: EMEROO 05:24 → 3BNU 05:24
PROVIDERS: ADMIT Internal Medicine; ATTEND Internal Medicine

== ENCOUNTER 2018-03-23 20:12 | Inpatient (IN) ==
[2018-03-23] MEDS ORDERED: *HR* FentaNYL (PF) 100 MCG/2 ML VIAL IVP ONE ×2 (21:51→22:42)
[2018-03-23 22:23] LABS: Basophils % 0.5 %; Eosinophils # 0.1 K/mcL (0.0-0.6); Eosinophils % 0.7 %; Immature Granulocytes % 1.4 % (0-4); Lymphocytes # 2.4 K/mcL (0.6-4.6); Lymphocytes % 31.5 %; Mean Corpuscular HGB Conc 32.4 g/dL (31.6-35.5); Mean Corpuscular Hemoglobin 32.4 pg (28.0-33.3); Mean Corpuscular Volume 100.3 fL (83.0-100.0); Mean Platelet Volume 9.5 fL (9.4-12.4); Monocytes # 0.9 K/mcL (0.0-1.3); Monocytes % 11.6 %; Neutrophils # 4.1 K/mcL (1.6-8.9); Platelet Count 286 K/mcL (140-400); Red Blood Count 3.39 M/mcL (3.82-4.97); Red Cell Distribution Width 13.6 % (11.5-14.5); Segmented Neutrophils % 54.3 %
[2018-03-23 22:30] LABS: INR 3.7; Prothrombin Time 40.8 Seconds (9.4-12.1)
[2018-03-23 22:33] LABS: Activated Partial Thrombo Time 45.1 Seconds (26.0-36.0)
[2018-03-23 22:42] LABS: BUN/Creatinine Ratio 32 (6-26); Blood Urea Nitrogen 21 mg/dL (8-23); Calcium 9.3 mg/dL (8.6-10.3); Carbon Dioxide 27 mEq/L (23-29); Chloride 103 mEq/L (98-107); Glucose 126 mg/dL (70-105); Osmolality,Calculated 291 (280-300); Potassium 3.4 mEq/L (3.5-5.1); Sodium 138 mEq/L (136-145); eGFR For African Americans > 60 (> 60); eGFR For Non-African Americans > 60 (> 60)
--- NOTE | 2018-03-23 22:47 | Emergency Department Note ---
START Narrative - START START: I examined this patient and my medical decision-making was reviewed with the Resident Physician. I agree with the documented findings, disposition and treatment plan as described except to the extent set forth below. 87-year-old female presents emergency room for back pain. Patient had a recent kyphoplasty of the thoracic spine by Dr. Waddell. She just had a recent new compression fracture involving T10. Dr. Waddell once to do another kyphoplasty on Monday. Patient needs to be admitted over the weekend for pain control. Dr waddell would like her to be admitted for pain control and preop clearance. pt states she can't get around well at home. having pain issues.
[2018-03-23] MEDS ORDERED: Naloxone 0.4 MG/ML INJ IVP PRN (23:32)
[2018-03-23] MEDS ORDERED: Acetaminophen 325 MG TABLET PO PRN (23:32)
[2018-03-23] MEDS ORDERED: Furosemide 40 MG TABLET PO PRN (23:39)
[2018-03-23] MEDS ORDERED: NON-FORMULARY MEDICATION 1 EACH EACH (Alendronate Sodium [Fosamax] 70 MG) PO SCH (23:45)
--- NOTE | 2018-03-23 23:52 | Internal Med History&Physical ---
Date of Encounter: 03/23/18 Time of Encounter: 23:00 Internal Medicine - H&P: HPI Chief complaint: Back pain Admitted From: Home Plans for Post Hospital Care: Home History of present illness: Ms. Church is a 87 year old female sent to ER by spine surgery for increased back pain. Past medical history is significant for hypertension, asthma, CHF, recent diagnosed PE on xarelto 15mg po bid now, polymyalgia rheumatica on low dose prednisone. Patient was found T 10 fracture on 02/12/18, plan for surgery by spinal surgery. Patient is on pain medication and physical therapy. Patient has a recent PE and history of CHF. Patient's back pain is getting worse since 2 days ago after physical therapy. Patient has severe uncontrolled pain, with nausea and vomited 3 times today. The vomiting are brownish fluid, no blood in it. Patient cannot tolerate the pain and was sent to ER for pain control. Spinal surgeon Dr. Smith plan to do surgery on Monday. Patient saw cardiology today and per family she is cleared by sewer line repairer Dr. Morrow for surgery. Patient was admitted for pain control and preoperative preparation. Past Med Surg Social Fam HX - Past Medical History Medical history: asthma, hypertension, thyroid disease, other Additional medical history: neuropathy Psychiatric history: no psych history - Past Surgical History Surgical History: thyroidectomy Additional surgical history: spine surgery - Social History Smoking Status: Never smoker Smokeless Tobacco Status: No Alcohol use: none Drug use: none - Family History Mother Adopted: No Family Member Ethnicity: Non- Living Status: Hx Family Cardiac Disorders: Yes Internal Medicine - H&P: Meds Albuterol Sulfate [Proair Hfa] 2 puff IH Q4H 10/20/16 [History] Atenolol [Tenormin] 25 mg PO DAILY 10/20/16 [History] Diltiazem HCl [Tiazac] 120 mg PO DAILY 10/20/16 [History] Fluticasone/Salmeterol [Advair 500-50 Diskus] 1 puff IH Q12H 10/20/16 [History] Ipratropium [ATROVENT Inhaler] 2 puff IH QID 10/20/16 [History] Levothyroxine [Synthroid] 125 mcg PO DAILY 10/20/16 [History] Losartan/Hydrochlorothiazide [Hyzaar 100-25 Tablet] 1 each PO DAILY 10/20/16 [ History] Gabapentin [Neurontin] 100 mg PO TID 02/05/18 [History] predniSONE [PredniSONE] 5 mg PO DAILY 02/05/18 [History] Apixaban [Eliquis] 5 mg PO BID #60 tab.ds.pk 03/07/18 [Rx] Alendronate Sodium [Fosamax] 70 mg PO QWEEK 03/23/18 [History] Furosemide [Lasix] 40 mg PO DAILY PRN 03/23/18 [History] HYDROcodone/Acet 10/325 mg [[place] 10-325 mg] 1 tab PO QID 03/23/18 [History] 3 Allergy/AdvReac Type Severity Reaction Status Date / Time codeine Allergy Hives Verified 03/23/18 22:21 All Systems PM: A 10-system review of systems was performed and is negative for pertinent findings except as documented above in the HPI. - Constitutional Vitals: Temp Pulse Resp BP Pulse Ox 98.6 F 114 16 162/82 95 03/23/18 20:23 03/23/18 22:00 03/23/18 23:31 03/23/18 23:31 03/23/18 22:00 General appearance: Present: mild distress, A&O X 3, answers questions appropriately - Head Head exam: Present: atraumatic, normocephalic - Eye Eye exam: Present: PERRL, conjuntiva pink, sclera anicteric Pupils: Present: PERRL - Neck Neck exam general surgery: Present: supple, trachea midline. Absent: lymphadenopathy - Respiratory Respiratory exam: Present: CTAB. Absent: accessory muscle use, rales, rhonchi, wheezes - Cardiovascular Cardiovascular exam: Present: RRR, +S1, +S2. Absent: diastolic murmur, gallop, rubs, systolic murmur - GI/Abdominal GI/Abdominal exam: Present: normal bowel sounds, soft, no peritoneal signs. Absent: distended, tenderness - Extremities Exam Extremities exam: Present: warm, radial pulses palpable and symmetrical. Absent : calf tenderness, cyanotic, pedal edema - Neurological Exam Neurological exam: Present: CN II-XII intact, oriented X3, no focal deficits. Absent: pronater drift, facial droop, speech deficit - Skin Skin exam: Present: dry, intact Internal Med - H&P Results - Labs CBC & Chem 7: 03/23/18 21:51 03/23/18 21:51 - Assessment and plan (1) Polymyalgia rheumatica Current Visit: Yes Status: Acute Assessment and plan: Continue home medication small dose prednisone 5 mg daily. Patient needs stress dose steroids on surgery day and postoperative days if she is on high stress. (2) Chronic steroid use Current Visit: Yes Status: Acute Assessment and plan: Patient may need stress dose during surgery. (3) Congestive heart failure Current Visit: No Status: Acute Assessment and plan: Appears euvolemic at this point. Continue home medication by mouth Lasix Qualifiers: Heart failure type: diastolic Heart failure chronicity: chronic Qualified Code(s): I50.32 - Chronic diastolic (congestive) heart failure (4) DVT prophylaxis Current Visit: No Status: Acute Assessment and plan: Patient is on xarelto and will switch to heparin drip for surgery. (5) Compression fracture of thoracic vertebra Current Visit: No Status: Chronic Assessment and plan: Continue pain medications. Spinal surgery with do surgery on Monday Qualifiers: Encounter type: initial encounter Fracture type: closed Qualified Code(s) : S22.000A - Wedge compression fracture of unspecified thoracic vertebra, initial encounter for closed fracture (6) Acute pulmonary embolism Current Visit: No Status: Acute Assessment and plan: Diagnosed as acute PE on 03/05. Patient is currently on xarelto 15mg po bid, last dose was this evening. Will hold xarelto, started heparin drip from tomorrow morning (next scheduled time of dose of xarelto) for surgery. Qualifiers: Pulmonary embolism type: other Acute cor pulmonale presence: without acute cor pulmonale Qualified Code(s): I26.99 - Other pulmonary embolism without acute cor pulmonale (7) Hypertension Current Visit: No Status: Chronic Assessment and plan: Continue home medications. Closely monitor BP Qualifiers: Hypertension type: essential hypertension Qualified Code(s): I10 - Essential (primary) hypertension (8) Hypokalemia Current Visit: No Status: Acute Assessment and plan: We will give by mouth supplement (9) Hypothyroidism Current Visit: No Status: Chronic Assessment and plan: Continue home medications Qualifiers: Hypothyroidism type: acquired Qualified Code(s): E03.9 - Hypothyroidism, unspecified (10) Nausea and vomiting Current Visit: Yes Status: Acute Assessment and plan: Most likely due to severe back pain, abdominal exam is benign. Patient has normal bowel movement this morning. Will continue pain control and symptomatic treatment for nausea vomiting. Closely monitor patient and further test if symptoms persists after treatment Qualifiers: Vomiting type: unspecified Vomiting Intractability: non-intractable Qualified Code(s): R11.2 - Nausea with vomiting, unspecified - Time Spent With Patient Total time spent is greater than 50% in coordination of care (as documented) at patient's floor/unit and/or counseling patient: 40 minutes Greater than 35 minutes
--- NOTE | 2018-03-24 00:09 | Emergency Department Note ---
Disposition Clinical Impression: Compression fracture of body of thoracic vertebra Disposition: Admitted As Inpatient Condition: Fair Referrals: Dilia Montoya MD [Primary Care Provider] - Forms: ED Satisfaction Letter Time of Disposition: 23:30 Back Pain HPI - General Chief Complaint: ED Back Pain/Injury Stated Complaint: back pain/multiple complaints Time Seen by Provider: 03/23/18 20:17 Source: patient, family Limitations: no limitations - History of Present Illness HPI Narrative: 87-year-old female with PMHx of CHF, PE on Xarelto presents emergency room with her daughter for back pain. Patient had a kyphoplasty of T8-9 [address] weeks ago by Dr. Smith but also has a known compression fracture of T10 that has worsened since her kyphoplasty. She is having intractible pain and significant limitation in function. I spoke with Dr. Smith this evening and he would like the patient to be admitted over the weekend for pain control and medical clearance for possible kyphoplasty on Monday - Related Data Home Medications Medication Instructions Recorded Confirmed Albuterol Sulfate [Proair Hfa] 2 puff IH Q4H 10/20/16 03/23/18 Atenolol [Tenormin] 25 mg PO DAILY 10/20/16 03/23/18 Diltiazem HCl [Tiazac] 120 mg PO DAILY 10/20/16 03/23/18 Fluticasone/Salmeterol [Advair 1 puff IH Q12H 10/20/16 03/23/18 500-50 Diskus] Ipratropium [ATROVENT Inhaler] 2 puff IH QID 10/20/16 03/23/18 Levothyroxine [Synthroid] 125 mcg PO DAILY 10/20/16 03/23/18 Losartan/Hydrochlorothiazide 1 each PO DAILY 10/20/16 03/23/18 [Hyzaar 100-25 Tablet] Gabapentin [Neurontin] 100 mg PO TID 02/05/18 03/23/18 predniSONE [PredniSONE] 5 mg PO DAILY 02/05/18 03/23/18 Alendronate Sodium [Fosamax] 70 mg PO QWEEK 03/23/18 03/23/18 Furosemide [Lasix] 40 mg PO DAILY PRN 03/23/18 03/23/18 HYDROcodone/Acet 10/325 mg [[place] 1 tab PO QID 03/23/18 03/23/18 10-325 mg] Previous Rx's Medication Instructions Recorded Apixaban [Eliquis] 5 mg PO BID #60 tab.ds.pk 03/07/18 Allergies Allergy/AdvReac Type Severity Reaction Status Date / Time codeine Allergy Hives Verified 03/23/18 22:21 Constitutional: Denies: fever, chills, weakness Cardiovascular: Denies: chest pain, palpitations Respiratory: Reports: other. Denies: cough, dyspnea Gastrointestinal: Denies: abdominal pain, nausea, vomiting Musculoskeletal: Reports: back pain Past Medical History - Past Medical History Medical history: Reports: asthma, hypertension, thyroid disease, other Surgical history: Reports: thyroidectomy Psychiatric history: Reports: no psych history RETAIL PERFORMANCE SPECIALIST history: Reports: no RETAIL PERFORMANCE SPECIALIST history - Social History Smoking Status: Never smoker Smokeless Tobacco Status: No Alcohol use: Reports: none Drug use: Reports: none Physical Exam - General Limitations: no limitations General appearance: alert - Head Head exam: atraumatic, normocephalic - Respiratory Respiratory exam: Absent: respiratory distress - Expanded Respiratory Exam Location: decreased breath sounds: Left, Right - Cardiovascular Cardiovascular exam: Present: regular rate, normal rhythm, normal heart sounds - Abdominal Exam Abdominal exam: Present: soft, Non-Tender. Absent: distention - Back Exam Back exam: Present: tenderness (worse around spinous processes of T7-11), muscle spasm Course Course Narrative: Patient was seen and examined at bedside and was in moderate distress from her back pain at the time of evaluation. Her vital signs are stable Vital Signs Temperature 98.6 F 03/23/18 20:14 Pulse Rate 111 03/23/18 20:14 Respiratory Rate 20 03/23/18 20:14 Blood Pressure 142/90 03/23/18 20:14 O2 Sat by Pulse Oximetry 95 03/23/18 20:14 Temperature 98.6 F 03/23/18 20:23 Pulse Rate 114 03/23/18 22:00 Respiratory Rate 16 03/23/18 23:31 Blood Pressure 162/82 03/23/18 23:31 O2 Sat by Pulse Oximetry 95 03/23/18 22:00 Oxygen Delivery Oxygen Delivery Nasal Cannula Back Pain/Injury - MDM Narrative Medical decision making narrative: Mrs. Church is having significant discomfort in her function is very limited at home. I spoke with her spinal surgeon Dr. Smith would like her to be admitted for medical clearance then pain management for possible kyphoplasty on Monday and we discussed admission versus attempt at managing her pain as an outpatient and patient and daughter prefer admission. Hospitalist accepted - Lab Data Lab results reviewed: Yes I reviewed the patient's lab results. Result diagrams: 03/23/18 21:51 03/23/18 21:51 Lab Results 03/23/18 03/23/18 03/23/18 Range/Units 21:51 21:51 21:51 WBC 7.6 (4.3-11.1) K/mcL RBC 3.39 L (3.82-4.97) M/mcL Hgb 11.0 L (11.5-15.4) g/dL Hct 34.0 L (35.3-44.9) % MCV 100.3 H (83.0-100.0) fL MCH 32.4 (28.0-33.3) pg MCHC 32.4 (31.6-35.5) g/dL RDW 13.6 (11.5-14.5) % Plt Count 286 (140-400) K/mcL MPV 9.5 (9.4-12.4) fL Immature Gran % 1.4 (0-4) % Seg Neutrophils % 54.3 % Lymphocytes % 31.5 % Monocytes % 11.6 % Eosinophils % 0.7 % Basophils % 0.5 % Neutrophils # 4.1 (1.6-8.9) K/mcL Lymphocytes # 2.4 (0.6-4.6) K/mcL Monocytes # 0.9 (0.0-1.3) K/mcL Eosinophils # 0.1 (0.0-0.6) K/mcL Basophils # 0.0 (0.0-0.2) K/mcL PT 40.8 H (9.4-12.1) Seconds INR 3.7 APTT 45.1 H (26.0-36.0) Seconds Sodium 138 (136-145) mEq/L Potassium 3.4 L (3.5-5.1) mEq/L Chloride 103 (98-107) mEq/L Carbon Dioxide 27 (23-29) mEq/L BUN 21 (8-23) mg/dL Creatinine 0.65 (0.60-1.20) mg/dL Est GFR ( Amer) > 60 (> 60) Est GFR (Non-Af Amer) > 60 (> 60) BUN/Creatinine Ratio 32 H (6-26) Glucose 126 H (70-105) mg/dL Calculated Osmolality 291 (280-300) Calcium 9.3 (8.6-10.3) mg/dL
[2018-03-24] MEDS: *HR* OxyCODONE/APAP 5/325 TABLET PO PRN ×3 (03:33→16:42)
[2018-03-24 03:44] LABS: Bilirubin,Urine Negative (Negative); Blood,Urine Trace-lysed (Negative); Clarity,Urine Clear (Clear); Color,Urine Yellow (Yellow); Glucose,Urine (UA) Normal (Normal); Ketones,Urine Negative (Negative); Leukocyte Esterase,Urine Trace (Negative); Nitrite,Urine Negative (Negative); PH,Urine 5.5 pH Units (5.0-8.0); Protein,Urine 30 mg/dL (Neg-Trace); Urobilinogen,Urine Normal (Normal)
[2018-03-24 03:54] LABS: Squamous Epithelial Cell,Urine Few per lpf (None-Few)
[2018-03-24] MEDS: Ipratropium 1 PUFF INHALER IH SCH ×3 (04:54→15:38)
[2018-03-24 04:58] LABS: Basophils % 0.5 %; Eosinophils # 0.1 K/mcL (0.0-0.6); Eosinophils % 1.4 %; Hematocrit 29.2 % (35.3-44.9); Hemoglobin 9.4 g/dL (11.5-15.4); Immature Granulocytes % 1.3 % (0-4); Lymphocytes # 1.9 K/mcL (0.6-4.6); Lymphocytes % 33.5 %; Mean Corpuscular HGB Conc 32.2 g/dL (31.6-35.5); Mean Corpuscular Volume 99.3 fL (83.0-100.0); Mean Platelet Volume 9.4 fL (9.4-12.4); Monocytes # 0.7 K/mcL (0.0-1.3); Monocytes % 12.7 %; Neutrophils # 2.8 K/mcL (1.6-8.9); Platelet Count 231 K/mcL (140-400); Red Blood Count 2.94 M/mcL (3.82-4.97); Red Cell Distribution Width 13.6 % (11.5-14.5); Segmented Neutrophils % 50.6 %
[2018-03-24 05:05] LABS: INR 2.7; Prothrombin Time 29.6 Seconds (9.4-12.1)
[2018-03-24 05:07] LABS: Activated Partial Thrombo Time 37.3 Seconds (26.0-36.0)
[2018-03-24 05:19] LABS: BUN/Creatinine Ratio 32 (6-26); Blood Urea Nitrogen 20 mg/dL (8-23); Calcium 8.8 mg/dL (8.6-10.3); Carbon Dioxide 27 mEq/L (23-29); Chloride 105 mEq/L (98-107); Glucose 128 mg/dL (70-105); Osmolality,Calculated 294 (280-300); Potassium 3.2 mEq/L (3.5-5.1); Sodium 140 mEq/L (136-145); eGFR For African Americans > 60 (> 60); eGFR For Non-African Americans > 60 (> 60)
[2018-03-24] MEDS ORDERED: *HR* Heparin 5,000 UNIT/ML VIAL IVP PRN ×2 (08:00)
[2018-03-24] MEDS ORDERED: *HR* Heparin 5,000 UNIT/ML VIAL IVP ONE (08:00)
[2018-03-24] MEDS: Diltiazem CD (24hr) 120 MG CAPSULE PO SCH (08:16)
[2018-03-24] MEDS: Ondansetron 4 MG/2 ML VIAL IVP PRN (08:16)
[2018-03-24] MEDS: Gabapentin 100 MG CAPSULE PO SCH ×3 (08:16→22:38)
[2018-03-24] MEDS: predniSONE 5 MG TABLET PO SCH (08:16)
[2018-03-24] MEDS: Losartan/HCTZ 50-12.5 TABLET PO SCH (08:16)
[2018-03-24] MEDS: Heparin 25,000 UNIT/500 ML D5W 25,000 UNIT/500 ML BAG IVC SCH (08:28)
[2018-03-24] MEDS: Budesonide/Formoterol 160/4.5 MDI IH SCH ×2 (08:58→20:32)
[2018-03-24] MEDS: *HR* HYDROcodone/Acet 5/325 mg TABLET PO PRN ×2 (12:30→21:03)
[2018-03-24 16:34] LABS: Activated Partial Thrombo Time 144.3 Seconds (26.0-36.0)
--- NOTE | 2018-03-24 16:36 | Internal Med Progress Note ---
Date of Encounter: 03/24/18 Time of Encounter: 11:00 - Assessment and plan (1) Compression fracture of thoracic vertebra Current Visit: No Status: Chronic Assessment and plan: Patient scheduled for T10 kyphoplasty on 03/26/18 with orthopedic spine specialists Qualifiers: Encounter type: initial encounter Fracture type: closed Qualified Code(s) : S22.000A - Wedge compression fracture of unspecified thoracic vertebra, initial encounter for closed fracture (2) Hypokalemia Current Visit: No Status: Acute Assessment and plan: Potassium 3.2; will give replacements (3) Congestive heart failure Current Visit: No Status: Acute Assessment and plan: Euvolemic; continue home medication by mouth Lasix Qualifiers: Heart failure type: diastolic Heart failure chronicity: chronic Qualified Code(s): I50.32 - Chronic diastolic (congestive) heart failure (4) Hypertension Current Visit: No Status: Chronic Assessment and plan: Continue home medications. Qualifiers: Hypertension type: essential hypertension Qualified Code(s): I10 - Essential (primary) hypertension (5) Hypothyroidism Current Visit: No Status: Chronic Assessment and plan: Continue home medications Qualifiers: Hypothyroidism type: acquired Qualified Code(s): E03.9 - Hypothyroidism, unspecified (6) Polymyalgia rheumatica Current Visit: Yes Status: Acute Assessment and plan: Continue home medication small dose prednisone 5 mg daily. Patient needs stress dose steroids on surgery day and postoperative days (7) Chronic steroid use Current Visit: Yes Status: Acute Assessment and plan: Patient may need stress dose during surgery. (8) Pulmonary embolism Current Visit: Yes Status: Acute Assessment and plan: Diagnosed as acute PE on 03/05. Patient is currently on xarelto Will hold xarelto, started heparin drip until surgery. Qualifiers: Qualified Code(s): I26.99 - Other pulmonary embolism without acute cor pulmonale (9) DVT prophylaxis Current Visit: No Status: Acute Assessment and plan: Patient is on xarelto and will switch to heparin drip for surgery. - Time Spent With Patient Total time spent is greater than 50% in coordination of care (as documented) at patient's floor/unit and/or counseling patient: - Subjective Interval history: Patient reports of back discomfort this morning Patient scheduled for T10 kyphoplasty on 03/26/18 with orthopedic spine specialists - Constitutional Vitals: Temp Pulse Resp BP Pulse Ox 98.2 F 75 18 108/63 95 03/24/18 15:45 03/24/18 15:45 03/24/18 15:45 03/24/18 15:45 03/24/18 15:45 General appearance: Present: mild distress, A&O X 3, no acute distress, answers questions appropriately - Respiratory Respiratory exam: Present: CTAB. Absent: accessory muscle use, rales, rhonchi, wheezes - Cardiovascular Cardiovascular exam: Present: RRR, +S1, +S2. Absent: diastolic murmur, gallop, rubs, systolic murmur Internal Medicine: Result - Labs CBC & Chem 7: 03/24/18 04:43 03/24/18 04:43 Labs: Short CBC 03/24/18 Range/Units 04:43 WBC 5.6 (4.3-11.1) K/mcL Hgb 9.4 L D (11.5-15.4) g/dL Hct 29.2 L (35.3-44.9) % Plt Count 231 (140-400) K/mcL Neutrophils # 2.8 (1.6-8.9) K/mcL BMP 03/24/18 04:43 Sodium 140 Potassium 3.2 L Chloride 105 Carbon Dioxide 27 BUN 20 Creatinine 0.62 Glucose 128 H Calcium 8.8 Urine 03/24/18 Range/Units 03:34 Urine Color Yellow (Yellow) Urine Clarity Clear (Clear) Urine pH 5.5 (5.0-8.0) pH Units Ur Specific [place] 1.020 (1.010-1.025) Urine Protein 30 H (Neg-Trace) mg/dL Urine Glucose (UA) Normal (Normal) mg/dL - ABG Interpretation ABG results: PT/INR, D-dimer PT 29.6 Seconds (9.4-12.1) H 03/24/18 04:43 Consult Discharge Plan - Plan Referrals: Dilia Montoya MD [Primary Care Provider] -
[2018-03-24 16:39] LABS: Heparin anti-factor XA UFH 1.84 IU/mL (0.30-0.70)
[2018-03-25] MEDS: Ipratropium 1 PUFF INHALER IH SCH ×5 (01:02→23:19)
[2018-03-25] MEDS: Losartan/HCTZ 50-12.5 TABLET PO SCH (07:53)
[2018-03-25] MEDS: Gabapentin 100 MG CAPSULE PO SCH ×3 (07:53→19:24)
[2018-03-25] MEDS: predniSONE 5 MG TABLET PO SCH (07:53)
[2018-03-25] MEDS: Diltiazem CD (24hr) 120 MG CAPSULE PO SCH (07:53)
[2018-03-25] MEDS: *HR* OxyCODONE/APAP 5/325 TABLET PO PRN ×2 (07:59→19:24)
[2018-03-25] MEDS: Budesonide/Formoterol 160/4.5 MDI IH SCH ×2 (09:07→20:43)
[2018-03-25 10:47] LABS: Basophils # 0.1 K/mcL (0.0-0.2); Basophils % 0.5 %; Eosinophils # 0.1 K/mcL (0.0-0.6); Hematocrit 31.9 % (35.3-44.9); Hemoglobin 10.1 g/dL (11.5-15.4); Immature Granulocytes % 1.3 % (0-4); Lymphocytes # 2.2 K/mcL (0.6-4.6); Mean Corpuscular HGB Conc 31.7 g/dL (31.6-35.5); Mean Corpuscular Hemoglobin 32.7 pg (28.0-33.3); Mean Corpuscular Volume 103.2 fL (83.0-100.0); Mean Platelet Volume 9.7 fL (9.4-12.4); Monocytes # 0.8 K/mcL (0.0-1.3); Monocytes % 8.5 %; Neutrophils # 6.6 K/mcL (1.6-8.9); Platelet Count 279 K/mcL (140-400); Red Blood Count 3.09 M/mcL (3.82-4.97); Red Cell Distribution Width 14.3 % (11.5-14.5); Segmented Neutrophils % 66.7 %
[2018-03-25 11:17] LABS: Calcium 8.6 mg/dL (8.6-10.3); Potassium 4.4 mEq/L (3.5-5.1)
--- NOTE | 2018-03-25 16:45 | Internal Med Progress Note ---
Date of Encounter: 03/25/18 Time of Encounter: 11:00 - Assessment and plan (1) Compression fracture of thoracic vertebra Current Visit: No Status: Chronic Assessment and plan: Patient scheduled for T10 kyphoplasty on 03/26/18 with orthopedic spine specialists Qualifiers: Encounter type: initial encounter Fracture type: closed Qualified Code(s) : S22.000A - Wedge compression fracture of unspecified thoracic vertebra, initial encounter for closed fracture (2) Hypokalemia Current Visit: No Status: Acute Assessment and plan: Potassium 3.2; will give replacements (3) Congestive heart failure Current Visit: No Status: Acute Assessment and plan: Euvolemic; continue home medication by mouth Lasix Qualifiers: Heart failure type: diastolic Heart failure chronicity: chronic Qualified Code(s): I50.32 - Chronic diastolic (congestive) heart failure (4) Hypertension Current Visit: No Status: Chronic Assessment and plan: Continue home medications. Qualifiers: Hypertension type: essential hypertension Qualified Code(s): I10 - Essential (primary) hypertension (5) Hypothyroidism Current Visit: No Status: Chronic Assessment and plan: Continue home medications Qualifiers: Hypothyroidism type: acquired Qualified Code(s): E03.9 - Hypothyroidism, unspecified (6) Polymyalgia rheumatica Current Visit: Yes Status: Acute Assessment and plan: Continue home medication small dose prednisone 5 mg daily. Patient needs stress dose steroids on surgery day and postoperative days (7) Chronic steroid use Current Visit: Yes Status: Acute Assessment and plan: Patient may need stress dose during surgery. (8) Pulmonary embolism Current Visit: Yes Status: Acute Qualifiers: Chronicity: unspecified Qualified Code(s): I26.99 - Other pulmonary embolism without acute cor pulmonale (9) DVT prophylaxis Current Visit: No Status: Acute Assessment and plan: Patient is on xarelto and will switch to heparin drip for surgery. - Time Spent With Patient Total time spent is greater than 50% in coordination of care (as documented) at patient's floor/unit and/or counseling patient: - Subjective Interval history: Patient resting comfortably this morning Patient scheduled for T10 kyphoplasty on 03/26/18 with orthopedic spine specialists - Constitutional Vitals: Temp Pulse Resp BP Pulse Ox 98.8 F 74 16 140/80 98 03/25/18 15:22 03/25/18 15:22 03/25/18 16:06 03/25/18 15:22 03/25/18 16:06 General appearance: Present: mild distress, A&O X 3, no acute distress, answers questions appropriately - Respiratory Respiratory exam: Present: CTAB. Absent: accessory muscle use, rales, rhonchi, wheezes - Cardiovascular Cardiovascular exam: Present: RRR, +S1, +S2. Absent: diastolic murmur, gallop, rubs, systolic murmur Internal Medicine: Result - Labs CBC & Chem 7: 03/25/18 10:27 03/25/18 10:27 Labs: Short CBC 03/25/18 Range/Units 10:27 WBC 9.9 D (4.3-11.1) K/mcL Hgb 10.1 L (11.5-15.4) g/dL Hct 31.9 L (35.3-44.9) % Plt Count 279 (140-400) K/mcL Neutrophils # 6.6 (1.6-8.9) K/mcL BMP 03/25/18 10:27 Sodium 138 Potassium 4.4 Chloride 105 Carbon Dioxide 23 BUN 26 H Creatinine 1.96 H Glucose 199 H Calcium 8.6 - ABG Interpretation ABG results: PT/INR, D-dimer PT 29.6 Seconds (9.4-12.1) H 03/24/18 04:43 Consult Discharge Plan - Plan Referrals: Dilia Montoya MD [Primary Care Provider] -
[2018-03-25] MEDS: Heparin 25,000 UNIT/500 ML D5W 25,000 UNIT/500 ML BAG IVC SCH (18:49)
[2018-03-25] MEDS: Ondansetron 4 MG/2 ML VIAL IVP PRN (19:24)
[2018-03-26] MEDS: *HR* HYDROcodone/Acet 5/325 mg TABLET PO PRN ×2 (00:08→08:57)
[2018-03-26] MEDS: Ipratropium 1 PUFF INHALER IH SCH ×3 (05:26→15:34)
[2018-03-26] MEDS: *HR* OxyCODONE/APAP 5/325 TABLET PO PRN (06:00)
[2018-03-26] MEDS: Budesonide/Formoterol 160/4.5 MDI IH SCH (07:55)
--- NOTE | 2018-03-26 08:07 | Electrocardiograph Report ---
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
[2018-03-26] MEDS: Gabapentin 100 MG CAPSULE PO SCH ×2 (08:34→14:09)
[2018-03-26] MEDS: Diltiazem CD (24hr) 120 MG CAPSULE PO SCH (08:34)
[2018-03-26] MEDS: predniSONE 5 MG TABLET PO SCH (08:34)
[2018-03-26] MEDS: Losartan/HCTZ 50-12.5 TABLET PO SCH (08:34)
[2018-03-26] MEDS: Ondansetron 4 MG/2 ML VIAL IVP PRN (08:57)
[2018-03-26] MEDS ORDERED: Hydrocortisone Sodium Succ 100 MG/2 ML VIAL IVP SCH (10:22)
--- NOTE | 2018-03-26 10:42 | Event Note ---
Date of Encounter: 03/26/18 Time of Encounter: 10:40 - Cardiology Event Note Discussed with Dr. Steven, will cancel consult as patient was already risk stratified by Dr. Morrow in office 03/23/18 (see note attached to chart)-- "Acceptable intermediate risk for intermediate risk surgery. Will need to be on chronic anticoagulation x 6 months total for recent PE".
--- NOTE | 2018-03-26 10:53 | Anesthesia Evaluation PreOp ---
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 Xarelto??? also on heparin gtt stopped for surgery with elevated PTT)) Anesthesia History: No Prior Anesthetic Complications Alcohol Use: none Drug use: none Medications and Allergies Albuterol Sulfate [Proair Hfa] 2 puff IH Q4H 10/20/16 [History] Atenolol [Tenormin] 25 mg PO DAILY 10/20/16 [History] Diltiazem HCl [Tiazac] 120 mg PO DAILY 10/20/16 [History] Fluticasone/Salmeterol [Advair 500-50 Diskus] 1 puff IH Q12H 10/20/16 [History] Ipratropium [ATROVENT Inhaler] 2 puff IH QID 10/20/16 [History] Levothyroxine [Synthroid] 125 mcg PO DAILY 10/20/16 [History] Losartan/Hydrochlorothiazide [Hyzaar 100-25 Tablet] 1 each PO DAILY 10/20/16 [ History] Gabapentin [Neurontin] 100 mg PO TID 02/05/18 [History] predniSONE [PredniSONE] 5 mg PO DAILY 02/05/18 [History] Alendronate Sodium [Fosamax] 70 mg PO QWEEK 03/23/18 [History] Furosemide [Lasix] 40 mg PO DAILY PRN 03/23/18 [History] HYDROcodone/Acet 10/325 mg [[place] 10-325 mg] 1 tab PO QID 03/23/18 [History] Rivaroxaban [Xarelto] 15 mg PO BID 03/24/18 [History] 3 Allergy/AdvReac Type Severity Reaction Status Date / Time codeine Allergy Hives Verified 03/23/18 22:21 - Meds/Allergy Pre-op Review Medications Reviewed: Yes Allergies Reviewed: Yes Beta Blockers on Current Med List: Yes (atenolol) If Beta Blockers taken, Date/Time (Last Dose taken): 03-26-18 atenolol 8:33 Anesthesia Results - Labs 03/25/18 10:27 03/25/18 10:27 INR being rechecked, as well as ptt - Imaging EKG: report reviewed, image reviewed (SINUS TACHYCARDIA WITH OCCASIONAL VENTRICULAR PREMATURE COMPLEXES MARKED LEFT AXIS DEVIATION LEFT BUNDLE BRANCH BLOCK) Additional studies: Cardiology clearance in office 03-23-2018 Patient is acceptable intermediate risk for surgery. Needs anticoagulation for 6 months due to recent PE 03-05-18. 03-05-18 TTE: EV/EV echocardiogram w enhance Impressions: LVEF 60%. Mild left ventricular diastolic dysfunction. Definity echo contrast was used. Atypical septal motion of unclear significance. Normal right ventricular structure and function. Mild mitral regurgitation. Unable to estimate RVSP - suboptimal TR signal. IVC is not well visualized. Anesthesia Exam Last Vital Signs Temp 98 F 03/26/18 11:01 Pulse 72 03/26/18 11:01 Resp 18 03/26/18 11:01 BP 102/47 03/26/18 11:01 Pulse Ox 95 03/26/18 11:01 Weight: 78 kg NPO (# of Hours): > 8 hrs - HEENT Pupil (Motor): Pupils equal, EOMI Mallampati: III Teeth: Edentulous Oral Opening: Greater than 3 - WET PROCESS HEAD MILLER LOC: Oriented - Cardiac Rhythm: Regular Murmur: None - Pulmonary Breath Sounds: bilateral Clear Respiratory Effort: Symmetrical Anesthesia Assess/Plan ASA Score: 3 Anesthetic Plan: General Monitoring Plan: Standard Monitors Recovery Plan: PACU
--- NOTE | 2018-03-26 11:34 | Spine Progress Note ---
Date of Encounter: 03/26/18 Time of Encounter: 11:32 Subjective Principal diagnosis: Severe back pain Interval history: Miss Church's an 87-year-old woman well known to the practice who is admitted over the weekend with severe thoracolumbar back pain. She had recent MRI which revealed acute T10 compression fracture. 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 She had previous kyphoplasty's of T8 and T9 and did well. She was admitted for her intractable pain via the hospitalist service. She is now medically optimized for kyphoplasty of T10. There is significant back pain and failure of nonoperative treatment I find it reasonable to consider a kyphoplasty of T10. Risk benefits possible complications and alternatives were discussed and the patient would like to proceed. Objective Vital signs: Vital Signs Temp Pulse Resp BP Pulse Ox 03/26/18 11:01 98 F 72 18 102/47 95 03/26/18 08:43 99 03/26/18 07:55 16 99 03/26/18 07:20 98 F 78 18 124/59 98 03/26/18 05:29 12 98 03/26/18 04:50 98.2 F 69 15 107/65 92 03/26/18 00:02 98.0 F 64 14 134/70 93 03/25/18 23:23 14 96 03/25/18 20:44 14 91 03/25/18 20:12 99.0 F 87 19 150/77 93 03/25/18 16:06 16 98 03/25/18 15:22 98.8 F 74 18 140/80 94 Intake and Output 03/25/18 03/26/18 03/26/18 23:59 07:59 15:59 Intake Total 351 / 351 0 / 0 Output Total 200 / 200 Balance 351 / 351 -200 / -200 0 / 0 Intake: IV Fluids 111 / 111 Heparin 25,000 UNIT/500 ML D5W 111 / 111 25,000 unit In 500 ml @ 14 UNIT /KG/HR 21.464 mls/hr IVC . [id number] ANA LAURA Rx#:[id number] Oral 240 / 240 0 / 0 Output: Urine 200 / 200 Other: Meal Dinner Percent of Meal Consumed 100% # Voids 1 Weight 78 kg Blood Glucose* 142 Patient Weight 03/26/18 23:59 Weight 78 kg - Labs CBC & BMP: 03/25/18 10:27 03/25/18 10:27 Labs: Abnormal lab results RBC 3.09 M/mcL (3.82-4.97) L 03/25/18 10:27 Hgb 10.1 g/dL (11.5-15.4) L 03/25/18 10:27 Hct 31.9 % (35.3-44.9) L 03/25/18 10:27 MCV 103.2 fL (83.0-100.0) H 03/25/18 10:27 PT 29.6 Seconds (9.4-12.1) H 03/24/18 04:43 APTT 64.5 Seconds (26.0-36.0) H 03/25/18 18:16 Heparin Anti-Xa, Unfract 1.84 IU/mL (0.30-0.70) H* 03/24/18 14:55 BUN 26 mg/dL (8-23) H 03/25/18 10:27 Creatinine 1.96 mg/dL (0.60-1.20) H 03/25/18 10:27 Est GFR ( Amer) 29 (> 60) L 03/25/18 10:27 Est GFR (Non-Af Amer) 24 (> 60) L 03/25/18 10:27 Glucose 199 mg/dL (70-105) H 03/25/18 10:27 Urine Protein 30 mg/dL (Neg-Trace) H 03/24/18 03:34 Urine Blood Trace-lysed (Negative) H 03/24/18 03:34 Ur Leukocyte Esterase Trace (Negative) H 03/24/18 03:34 Urine Microscopic RBC 3-5 per hpf (0-3) H 03/24/18 03:34 Urine Microscopic WBC 3-5 per hpf (0-3) H 03/24/18 03:34 Ur Culture Indicated? YES (NO) A 03/24/18 03:34 Consult Discharge Plan - Plan Referrals: Dilia Montoya MD [Primary Care Provider] -
[2018-03-26 16:20] LABS: INR 1.2; Prothrombin Time 13.4 Seconds (9.4-12.1)
[2018-03-26] MEDS ORDERED: ceFAZolin 2,000 MG in Water for inj. (sterile) 20 ML 20 ML IVP ONE (16:30)
[2018-03-26] MEDS ORDERED: Ondansetron 4 MG/2 ML VIAL ONE (16:31)
[2018-03-26] MEDS ORDERED: *HR* Succinylcholine 200 MG/10 ML VIAL IVP ONE (16:31)
[2018-03-26] MEDS ORDERED: *HR* FentaNYL (PF) 100 MCG/2 ML VIAL ONE (16:31)
[2018-03-26] MEDS ORDERED: Lidocaine -MPF 2% 2 ML VIAL ONE (16:31)
[2018-03-26] MEDS ORDERED: *HR* Propofol 200 MG/20 ML VIAL IVP ONE (16:32)
[2018-03-26] MEDS ORDERED: *HR* Atropine Sulfate 8 MG/20 ML VIAL IVP ONE (17:00)
[2018-03-26] MEDS ORDERED: Dexamethasone 4 MG/ML VIAL ONE ×2 (17:00→17:01)
[2018-03-26] MEDS ORDERED: Lidocaine -MPF 4% 5 ML AMPUL ONE (17:02)
[2018-03-26] MEDS ORDERED: *HR* Labetalol 100 MG/20 ML MDV IVP PRN (17:14)
[2018-03-26] MEDS ORDERED: Acetaminophen IV 1,000 MG/100 ML INFUS..BTL IVPB ONE (17:14)
[2018-03-26] MEDS ORDERED: *HR* Promethazine 25 MG/ML VIAL IVP PRN (17:14)
--- NOTE | 2018-03-26 17:30 | Internal Med Progress Note ---
Date of Encounter: 03/26/18 Time of Encounter: 11:00 - Assessment and plan (1) Compression fracture of thoracic vertebra Current Visit: No Status: Chronic Assessment and plan: Patient scheduled for T10 kyphoplasty this afternoon with orthopedic spine specialists Qualifiers: Fracture type: closed Qualified Code(s): S22.000A - Wedge compression fracture of unspecified thoracic vertebra, initial encounter for closed fracture (2) Hypokalemia Current Visit: No Status: Resolved Assessment and plan: Resolved; continue to monitor (3) Congestive heart failure Current Visit: No Status: Acute Assessment and plan: Euvolemic; continue home medication by mouth Lasix Qualifiers: Heart failure type: diastolic Heart failure chronicity: chronic Qualified Code(s): I50.32 - Chronic diastolic (congestive) heart failure (4) Hypertension Current Visit: No Status: Chronic Assessment and plan: Continue home medications. Qualifiers: Hypertension type: essential hypertension Qualified Code(s): I10 - Essential (primary) hypertension (5) Hypothyroidism Current Visit: No Status: Chronic Assessment and plan: Continue home medications Qualifiers: Hypothyroidism type: acquired Qualified Code(s): E03.9 - Hypothyroidism, unspecified (6) Polymyalgia rheumatica Current Visit: Yes Status: Acute Assessment and plan: Continue home medication small dose prednisone 5 mg daily. Patient needs stress dose steroids on surgery day and postoperative days (7) Chronic steroid use Current Visit: Yes Status: Acute Assessment and plan: Patient may need stress dose during surgery. (8) Pulmonary embolism Current Visit: Yes Status: Acute Assessment and plan: Diagnosed as acute PE on 03/05. Patient is currently on xarelto Will hold xarelto, started heparin drip until surgery. Qualifiers: Chronicity: unspecified Qualified Code(s): I26.99 - Other pulmonary embolism without acute cor pulmonale (9) DVT prophylaxis Current Visit: No Status: Acute Assessment and plan: Patient is on xarelto and will switch to heparin drip for surgery. - Time Spent With Patient Total time spent is greater than 50% in coordination of care (as documented) at patient's floor/unit and/or counseling patient: - Subjective Interval history: Patient resting comfortably this morning Patient scheduled for T10 kyphoplasty this afternoon with orthopedic spine specialists - Constitutional Vitals: Temp Pulse Resp BP Pulse Ox 98 F 72 20 102/47 95 03/26/18 11:01 03/26/18 11:01 03/26/18 15:34 03/26/18 11:01 03/26/18 15:34 General appearance: Present: mild distress, A&O X 3, no acute distress, answers questions appropriately - Cardiovascular Cardiovascular exam: Present: RRR, +S1, +S2. Absent: diastolic murmur, gallop, rubs, systolic murmur - Skin Skin exam: Present: normal color Internal Medicine: Result - Labs CBC & Chem 7: 03/25/18 10:27 03/25/18 10:27 - ABG Interpretation ABG results: PT/INR, D-dimer PT 13.4 Seconds (9.4-12.1) H D 03/26/18 15:52 Consult Discharge Plan - Plan Referrals: Dilia Montoya MD [Primary Care Provider] -
--- NOTE | 2018-03-26 17:37 | Orthopedic Operative Note ---
Date of procedure: 03/26/18 Pre-op diagnosis: Osteopenia, vertebral compression fracture Post-op diagnosis: same Operation/Findings: Kyphoplasty T10: The patient was brought to the operative theater where successful endotracheal anesthesia was performed. The patient was given antibiotics prior to the start of the procedure. Compression boots and stockings were used for deep vein thrombosis. Patient was then turned prone on a well-padded Sundar table. The back was prepped and draped in the usual sterile fashion. 2 C-arm fluorographic devices were brought into position such that simultaneous AP and lateral views centered over the involved vertebral body could be performed. A stab incision was made over the superior-lateral aspect of the pedicle. We introduced a Jamshidi needle into the vertebral body via a transpedicular route. We took biplanar images of the vertebral body using fluorography. The needle was found to be in appropriate position and within the confines of the vertebral body. We then introduced a biopsy trocar and obtained a biopsy specimen of the vertebral body. This was sent for pathologic evaluation. We then removed the biopsy trocar and introduced a Kyphon balloon. The balloon was insufflated to approximately 5 mL volume and subsequently deflated. The balloon was seen to expand within the confines of the vertebral body on biplanar fluorographic views. The balloon was then removed. Within and some inserted cement trochars and sequentially placed bone cement within the confines of the vertebral body. We took intermittent fluorographic views which confirmed satisfactory placement of the cement. After completion of the cementation process, the trocar was removed. We took final AP and lateral fluorographic views. We then closed the stab incision with 2-0 nylon suture. A Band-Aid was placed over the wound. The patient was turned supine on a hospital bed and extubated. All sponge instrument and needle counts were correct at the end of the procedure. The patient tolerated the procedure well without complications. Anesthesia: GETA Surgeon: Mark Smith Jr Was there an licensed occupational therapy assistant present: No Estimated blood loss (cc): 2 Specimen: T10 vertebral biopsy Condition: stable Disposition: PACU
[2018-03-26] MEDS ORDERED: *HR* OxyCODONE Immed Rel 5 MG TABLET PO ONE (18:07)
--- NOTE | 2018-03-26 18:38 | Anesthesia Evaluation Post Op ---
Date of Encounter: 03/26/18 Time of Encounter: 18:36 - Vital Signs Vital Signs: Vital Signs/O2 Sat, Most Current Temp Pulse Resp BP Pulse Ox 97.2 F L 65 16 149/73 96 03/26/18 18:14 03/26/18 18:24 03/26/18 18:24 03/26/18 18:24 03/26/18 18:24 - Lungs Lungs: Clear Ascult./Percussion - Airway Airway: Non-obstructed - Cardiovascular Regular Rate - Mental Status Mental Status: Alert & Oriented, Answers Appropriately - Pain Pain Scale: 6 Pain Scale used: Numeric (1 - 10) - Nausea Vomiting Nausea Vomiting: Not Present - Hydration Hydration: NPO, Has not voided - Discharge PostOp Status: Transfer Patient to floor (reports pain improving and tolerable)
[2018-03-26] MEDS ORDERED: Ondansetron 4 MG/2 ML VIAL IVP PRN (19:18)
[2018-03-26] MEDS ORDERED: *HR* OxyCODONE Immed Rel 5 MG TABLET PO PRN (19:18)
[2018-03-26] MEDS ORDERED: Ringers Solution, Lactated 1,000 ML IVC SCH (19:18)
[2018-03-26] MEDS: *HR* HYDROcodone/Acet 10/325 mg TABLET PO SCH (20:20)
[2018-03-26] MEDS: *HR* Rivaroxaban 15 MG TABLET PO SCH (20:20)
[2018-03-26] MEDS ORDERED: ceFAZolin 1,000 MG in Water for inj. (sterile) 20 ML 10 ML IVP ONE (20:25)
[2018-03-26] MEDS: *HR* OxyCODONE Immed Rel 5 MG TABLET PO PRN (23:00)
[2018-03-27] MEDS: ceFAZolin 2,000 MG in 0.9 % Sodium Chloride 100 ML IVPB SCH ×2 (00:45→07:25)
[2018-03-27] MEDS: *HR* Rivaroxaban 15 MG TABLET PO SCH (07:25)
[2018-03-27] MEDS: *HR* OxyCODONE Immed Rel 5 MG TABLET PO PRN (07:25)
[2018-03-27] MEDS: *HR* HYDROcodone/Acet 10/325 mg TABLET PO SCH ×2 (11:52→12:57)
[2018-03-27 11:56] VITALS: BP 136/82
--- NOTE | 2018-03-27 12:41 | Discharge Summary ---
- NOTES TO OUTPATIENT PROVIDER Notes to Outpatient Provider: Dr. Smith out pt Orders not resulted at time of discharge: Pending orders 03/26/18 17:35 Surgical Pathology [PTH] Routine Date of Encounter: 03/27/18 Time of Encounter: 12:35 Hospital course: Ms. Church is a 87 year old female sent to ER by spine surgery for increased back pain. Past medical history is significant for hypertension, asthma, CHF, recent diagnosed PE on xarelto 15mg po bid now, polymyalgia rheumatica on low dose prednisone. Today pt denies any fever, chills, N/V diarrhea/chest pain or SOB. Assessment and plan (1) Compression fracture of thoracic vertebra Current Visit: No Status: Chronic Assessment and plan: Patient is s/p T10 kyphoplasty 03/26/18. Pt is to follow up out pt with Dr. Mark Smith as recommended. Daughter at bedside during my evaluation. Qualifiers: Fracture type: closed Qualified Code(s): S22.000A - Wedge compression fracture of unspecified thoracic vertebra, initial encounter for closed fracture (2) Hypokalemia Current Visit: No Status: Resolved K at discharge 4.4 up from 3.2. Assessment and plan: Resolved; continue to monitor (3) Congestive heart failure Current Visit: No Status: Acute Assessment and plan: Euvolemic; continue home medication by mouth Lasix Qualifiers: Heart failure type: diastolic Heart failure chronicity: chronic Qualified Code(s): I50.32 - Chronic diastolic (congestive) heart failure (4) Hypertension Current Visit: No Status: Chronic Assessment and plan: Continue home medications. Qualifiers: Hypertension type: essential hypertension Qualified Code(s): I10 - Essential (primary) hypertension (5) Hypothyroidism Current Visit: No Status: Chronic Assessment and plan: Continue home medications Qualifiers: Hypothyroidism type: acquired Qualified Code(s): E03.9 - Hypothyroidism, unspecified (6) Polymyalgia rheumatica Current Visit: Yes Status: Acute Assessment and plan: Continue home medication small dose prednisone 5 mg daily. Patient needs stress dose steroids on surgery day and postoperative days (7) Chronic steroid use Current Visit: Yes Status: Acute Assessment and plan: Patient may need stress dose during surgery. (8) Pulmonary embolism Current Visit: Yes Status: Acute Assessment and plan: Diagnosed as acute PE on 03/05. Patient is currently on xarelto Will hold xarelto, started heparin drip until surgery. Qualifiers: Chronicity: unspecified Qualified Code(s): I26.99 - Other pulmonary embolism without acute cor pulmonale (9) DVT prophylaxis Current Visit: No Status: Acute Assessment and plan: Patient is on xarelto and will switch to heparin drip for surgery. Discharge discussed with: patient, family Time spent discussing smoking cessation with patient: 3 to 10 minutes - Time Spent with Patient Total time spent providing and/or coordinating discharge services: Greater than 30 minutes - Discharge Medications Home Medications: Albuterol Sulfate [Proair Hfa] 2 puff IH Q4H 10/20/16 [History] Atenolol [Tenormin] 25 mg PO DAILY 10/20/16 [History] Diltiazem HCl [Tiazac] 120 mg PO DAILY 10/20/16 [History] Fluticasone/Salmeterol [Advair 500-50 Diskus] 1 puff IH Q12H 10/20/16 [History] Ipratropium [ATROVENT Inhaler] 2 puff IH QID 10/20/16 [History] Levothyroxine [Synthroid] 125 mcg PO DAILY 10/20/16 [History] Losartan/Hydrochlorothiazide [Hyzaar 100-25 Tablet] 1 each PO DAILY 10/20/16 [ History] Gabapentin [Neurontin] 100 mg PO TID 02/05/18 [History] predniSONE [PredniSONE] 5 mg PO DAILY 02/05/18 [History] Alendronate Sodium [Fosamax] 70 mg PO QWEEK 03/23/18 [History] Furosemide [Lasix] 40 mg PO DAILY PRN 03/23/18 [History] HYDROcodone/Acet 10/325 mg [[place] 10-325 mg] 1 tab PO QID 03/23/18 [History] Rivaroxaban [Xarelto] 15 mg PO BID 03/24/18 [History] Allergies/Adverse Reactions: 3 Allergy/AdvReac Type Severity Reaction Status Date / Time codeine Allergy Hives Verified 03/23/18 22:21 Date of admission: 03/23/18 23:49 Primary care physician: Dilia Montoya, Consults: 03/26/18 19:18 Consult to Physical Therapy [CONS] Routine Comment: Evaluate, develop and implement POC Reason for Consult: Postoperative rehabilitation Does patient have active BEDREST order?: No Is patient medically & hemodynamically stable?: Yes Patient assessed for mobility or mobilized this visit?: No Consult to Duct Layer Helper [CONS] Routine Reason for SW Consult: Postoperative rehabilitation - Constitutional Vitals: Temp Pulse Resp BP Pulse Ox 98.2 F 71 17 136/82 93 03/27/18 11:55 03/27/18 11:55 03/27/18 11:55 03/27/18 11:55 03/27/18 11:55 General appearance: Present: mild distress, A&O X 3, no acute distress, answers questions appropriately - Patient Status Disposition: Home, Self-Care Condition: Fair - Discharge Instructions Follow Up With: Dilia Montoya MD [Primary Care Provider] - Forms: ED Satisfaction Letter - Diet and Activity Activity: increase activity as tolerated Diet: advance to your usual diet - VTE Documentation of Mechanical Device: Intermittent pneumatic compression device
--- NOTE | 2018-03-27 15:55 | Orthopedics Progress Note ---
Date of Encounter: 03/27/18 Time of Encounter: 08:00 - Assessment and Plan (1) Status post kyphoplasty Status: Acute (2) Compression fracture of body of thoracic vertebra Status: Acute Subjective Principal diagnosis: Severe back pain Interval history: POD#1 Date of procedure: 03/26/18 Pre-op diagnosis: Osteopenia, vertebral compression fracture Post-op diagnosis: same Operation/Findings: Kyphoplasty T10 The patient is without complaints. She states that her pain that she was having prior to surgery has completely resolved. Afebrile vital signs are stable. Incision is clean dry and intact. Neurovascularly intact with regard to bilateral lower extremities. Fires all upper and lower extremity motor groups. Assessment: Stable postoperative. Plan: Reviewed postoperative restrictions and precautions including avoiding heavy lifting and submerging the incision under water. Patient verbalized understanding. Mobilize with therapy Continue analgesics as needed Patient is to keep follow-up as an outpatient as needed. We will sign off at this time. Feel free to reconsult at any time for any concerns or questions. Objective Vital signs: Vital Signs Temp Pulse Resp BP Pulse Ox 03/27/18 11:55 98.2 F 71 17 136/82 93 03/27/18 07:37 97 03/27/18 06:47 98.8 F 70 15 154/88 97 03/27/18 05:13 98.3 F 70 16 153/67 97 03/27/18 00:18 98.4 F 85 18 144/67 98 03/26/18 22:54 98.6 F 84 16 149/97 96 03/26/18 21:30 98.4 F 63 16 139/77 96 03/26/18 20:24 98.2 F 76 16 152/81 97 03/26/18 19:46 98 F 74 18 157/74 96 03/26/18 19:05 98.2 F 71 16 154/70 93 03/26/18 18:44 98.4 F 64 14 152/73 97 03/26/18 18:34 98.4 F 64 14 151/71 97 03/26/18 18:24 65 16 149/73 96 03/26/18 18:14 97.2 F L 64 16 136/87 96 03/26/18 18:04 67 16 141/70 96 03/26/18 17:54 63 16 146/71 96 03/26/18 17:44 97.0 F L 64 16 135/76 97 Intake and Output 03/26/18 03/27/18 03/27/18 23:59 07:59 15:59 Intake Total 100 / 100 Output Total 2 200 / 200 Balance -2 / -2 -100 / -100 Intake: IV Fluids 100 / 100 Ancef 2,000 MG In 0.9 % Sodium 100 / 100 Chloride 100 ML @ 200 mls/hr IVPB Q8HR ANA LAURA Rx#:[id number] Output: Urine 200 / 200 Estimated Blood Loss 2 / Other: # Voids 1 - Labs CBC & BMP: 03/25/18 10:27 03/25/18 10:27 Labs: Abnormal lab results RBC 3.09 M/mcL (3.82-4.97) L 03/25/18 10:27 Hgb 10.1 g/dL (11.5-15.4) L 03/25/18 10:27 Hct 31.9 % (35.3-44.9) L 03/25/18 10:27 MCV 103.2 fL (83.0-100.0) H 03/25/18 10:27 PT 13.4 Seconds (9.4-12.1) H D 03/26/18 15:52 Heparin Anti-Xa, Unfract 1.84 IU/mL (0.30-0.70) H* 03/24/18 14:55 BUN 26 mg/dL (8-23) H 03/25/18 10:27 Creatinine 1.96 mg/dL (0.60-1.20) H 03/25/18 10:27 Est GFR ( Amer) 29 (> 60) L 03/25/18 10:27 Est GFR (Non-Af Amer) 24 (> 60) L 03/25/18 10:27 Glucose 199 mg/dL (70-105) H 03/25/18 10:27 POC Glucose 142 mg/dL (70-99) H 03/26/18 11:05 Urine Protein 30 mg/dL (Neg-Trace) H 03/24/18 03:34 Urine Blood Trace-lysed (Negative) H 03/24/18 03:34 Ur Leukocyte Esterase Trace (Negative) H 03/24/18 03:34 Urine Microscopic RBC 3-5 per hpf (0-3) H 03/24/18 03:34 Urine Microscopic WBC 3-5 per hpf (0-3) H 18 03:34 Ur Culture Indicated? YES (NO) A 03/24/18 03:34 - VTE Documentation of Mechanical Device: Intermittent pneumatic compression device Consult Discharge Plan - Plan Instructions: Oxycodone, Rapid Release (By mouth), Kyphoplasty (DC) Referrals: Dilia Montoya MD [Primary Care Provider] -
== END 2018-03-27 14:38 | disposition home or self-care (01) | DRG 477 ==
LOC: 3NENU 20:12 → EMEROO 20:12 → 3NENU 23:48 → SUATTDRO 23:49
PROVIDERS: ADMIT Internal Medicine; ATTEND Hospitalist